=== PATIENT | male | born 1990 | race Hispanic/Latino ===

== ENCOUNTER 2017-12-05 17:32 | Emergency (ER) | payer SELFPAY ==
--- NOTE | 2017-12-05 19:18 | RAD REPORT ---
EXAM DESCRIPTION: RAD - Foot Right 3 View - 12/05/2017 6:15 pm CLINICAL HISTORY: Soft tissue swelling, possible insect bite COMPARISON: None. FINDINGS: No fracture, dislocation or periosteal reaction. No acute or destructive bone process iden tifiable. No acute or suspicious joint finding. Soft tissue swelling is present over the dorsum of the foot. No air in the soft tissues. On the later al and oblique views there is a faint 3 mm density present. This is potentially of foreign body but i s not likely from an insect bite. This is doubtful as a true foreign body can't but can be monitored IMPRESSION: Soft tissue swelling with no air in the soft tissues. Small 3 mm radiopaque density over the dorsum, possibly a foreign body.
[2017-12-05] MEDS ORDERED: CLINDAMYCIN 600MG/D5W 600 MG/50 ML BAG IV ONE (19:52)
[2017-12-05 20:02] LABS: Absolute Lymphocytes (CBC) 2.6 K/uL (0.7-4.9); Absolute Monocytes 0.8 K/uL (0.1-1.3); Absolute Neutrophil 7.5 K/uL (1.8-8.0); Basophils % 0.2 % (0-1.3); Eosinophils % 1.5 % (0-4.4); Hematocrit 41.7 % (39.6-49.0); Lymphocytes % 23.3 % (15.3-44.8); MCH 29.7 pg (27.0-35.0); MCV 88.1 fL (80-100); MPV 8.8 fL (7.6-11.3); Monocytes % 7.4 % (3.3-12.3); RBC Red Blood Cell Count 4.73 M/uL (4.33-5.43)
[2017-12-05 20:09] LABS: BUN Blood Urea Nitrogen 23 mg/dL (6-20); Bicarbonate 26 mEq/L (21-31); Glucose Level 95 mg/dL (65-120); Potassium 3.7 mEq/L (3.6-5.0); Sodium Level 137 mEq/L (135-145)
--- NOTE | 2017-12-05 20:20 | EDPHYS ---
Physician Documentation [facility] Name: Marcell Whyte Age: 27 yrs Sex: Male : 1990 Arrival Date: 12/05/2017 Time: 17:33 Bed 24 Private MD: ED Physician Rikki Lucio HPI: 12/05 19:03 This 27 yrs old Male presents to ER via Ambulatory with complaints of Foot kb Pain. 19:03 The patient presents with cellulitis of the right foot. Description: erythematous, kb swollen, warm. Onset: The symptoms/episode began/occurred 3 day(s) ago. Possible cause(s): unknown. Associated signs and symptoms: Pertinent positives: erythema, swelling, Pertinent negatives: discharge, drainage, foreign body sensation, fever, headache, nausea, shortness of breath, vomiting. Modifying factors: the symptoms are alleviated by nothing, the symptoms are aggravated by touching. Severity of symptoms: At their worst the symptoms were moderate, in the emergency department the symptoms are unchanged. The patient has not experienced similar symptoms in the past. The patient has not recently seen a physician. Pt states he thinks something bit him when he was in the yard on Sunday because his foot started swelling and getting red. States it has been getting worse since it started. Historical: - Allergies: 17:50 No Known Allergies; ch - Home Meds: 17:50 None [Active]; ch - PMHx: 17:50 None; ch - PSHx: 17:50 None; ch - Immunization history:: Adult Immunizations up to date, Last tetanus immunization: unknown, Flu vaccine is not up to date. - Social history:: Smoking status: Patient/guardian denies using tobacco. ROS: 19:00 Constitutional: Negative for fever, chills, and weight loss, Cardiovascular: Negative kb for chest pain, palpitations, and edema, Respiratory: Negative for shortness of breath, cough, wheezing, and pleuritic chest pain, Abdomen/GI: Negative for abdominal pain, nausea, vomiting, diarrhea, and constipation, MS/Extremity: Negative for injury and deformity, Neuro: Negative for headache, weakness, numbness, tingling, and seizure. 19:00 Skin: Positive for cellulitis, erythema, swelling, of the right foot. Exam: 19:02 Constitutional: This is a well developed, well nourished patient who is awake, alert, kb and in no acute distress. Head/Face: Normocephalic, atraumatic. Chest/axilla: Normal chest wall appearance and motion. Nontender with no deformity. No lesions are appreciated. Cardiovascular: Regular rate and rhythm with a normal S1 and S2. No gallops, murmurs, or rubs. Normal PMI, no JVD. No pulse deficits. Respiratory: Lungs have equal breath sounds bilaterally, clear to auscultation and percussion. No rales, rhonchi or wheezes noted. No increased work of breathing, no retractions or nasal flaring. Abdomen/GI: Soft, non-tender, with normal bowel sounds. No distension or tympany. No guarding or rebound. No evidence of tenderness throughout. MS/ Extremity: Pulses equal, no cyanosis. Neurovascular intact. Full, normal range of motion. Neuro: Awake and alert, GCS 15, oriented to person, place, time, and situation. Cranial nerves II-XII grossly intact. Motor strength 5/5 in all extremities. Sensory grossly intact. Cerebellar exam normal. Normal gait. 19:02 Skin: cellulitis, that is moderate, on the right foot. Vital Signs: 17:50 BP 121 / 74; Pulse 75; Resp 18; Temp 99.4; Pulse Ox 99% on R/A; Weight 99.79 kg; Height ch 5 ft. 11 in. (180.34 cm); Pain 6/10; 20:33 BP 105 / 75; Pulse 55; Resp 17; Temp 98.6; Pulse Ox 99% on R/A; kr2 17:50 Body Mass Index 30.68 (99.79 kg, 180.34 cm) MDM: 18:10 Patient medically screened. kb 19:02 Data reviewed: vital signs, nurses notes. Data interpreted: Pulse oximetry: on room air kb is 99 %. Interpretation: normal. 20:13 Counseling: I had a detailed discussion with the patient and/or guardian regarding: the kb historical points, exam findings, and any diagnostic results supporting the discharge/admit diagnosis, lab results, radiology results, the need for outpatient follow up, a family practitioner, to return to the emergency department if symptoms worsen or persist or if there are any questions or concerns that arise at home. 12/05 18:43 Order name: CBC with Diff; Complete Time: 20:13 kb 12/05 18:43 Order name: Basic Metabolic Panel; Complete Time: 20:13 kb 12/05 17:52 Order name: Foot Right 3 View XRAY; Complete Time: 19:19 kb 12/05 18:43 Order name: Blood Culture Adult (2) kb 12/05 18:43 Order name: IV Start; Complete Time: 19:24 kb Administered Medications: 20:07 Drug: Clindamycin 600 mg Route: IVPB; Infused Over: 30 mins; Site: right antecubital; kr2 20:30 Follow up: Response: No adverse reaction; IV Status: Completed infusion kr2 Disposition: 22:37 Co-signature as Attending Physician, Rikki Lucio MD I agree with the assessment and kdr plan of care. Disposition: 12/05/17 20:18 Discharged to Home. Impression: Cellulitis of right lower limb. - Condition is Stable. - Discharge Instructions: Cellulitis, [id number]. - Prescriptions for Clindamycin HCl 300 mg Oral Capsule - take 1 capsule by ORAL route every 6 hours for 10 days; 40 capsule. - Medication Reconciliation Form, Thank You Letter, Antibiotic Education, Prescription Opioid Use form. - Follow up: Emergency Department; When: As needed; Reason: Worsening of condition. Follow up: Private Physician; When: 2 - 3 days; Reason: Recheck today's complaints, Continuance of care, Re-evaluation by your physician. Signatures: Dispatcher [employer] EDMS Nadeen Agarwal, BALTAZAR-C [employer]NE[employer]IN S[employer]ER [employer] FINISHER-Wanda Gillette RN RN Rikki Lucio MD MD [facility] Trisha Alexander RN RN kr2 Corrections: (The following items were deleted from the chart) 20:35 20:18 12/05/2017 20:18 Discharged to Home. Impression: Cellulitis of right lower limb. kr2 Condition is Stable. Discharge Instructions: Cellulitis, [id number]. Prescriptions for Clindamycin HCl 300 mg Oral Capsule - take 1 capsule by ORAL route every 6 hours for 10 days; 40 capsule. and Forms are Medication Reconciliation Form, Thank You Letter, Antibiotic Education, Prescription Opioid Use. Follow up: Emergency Department; When: As needed; Reason: Worsening of condition. Follow up: Private Physician; When: 2 - 3 days; Reason: Recheck today's complaints, Continuance of care, Re-evaluation by your physician. kb
--- NOTE | 2017-12-05 20:20 | ER ---
Nurse's Notes [facility] Name: Marcell Whyte Age: 27 yrs Sex: Male : 1990 Arrival Date: 12/05/2017 Time: 17:33 Bed 24 Private MD: Diagnosis: Cellulitis of right lower limb Presentation: 12/05 17:49 Presenting complaint: Patient states: I think something bit me on the top of my foot on Sunday. its swollen and red and very painful, redness is going up my leg now. Transition of care: patient was not received from another setting of care. Onset of symptoms was December 03, 2017. Initial Sepsis Screen: Does the patient meet any 2 criteria? No. Patient's initial sepsis screen is negative. Does the patient have a suspected source of infection? No. Patient's initial sepsis screen is negative. Care prior to arrival: None. 17:49 Method Of Arrival: Ambulatory 17:49 Acuity: MILTON 3 Triage Assessment: 17:50 General: Appears in no apparent distress. comfortable, Behavior is calm, cooperative, ch appropriate for age. Pain: Complains of pain in dorsum of left foot Pain currently is 7 out of 10 on a pain scale. Historical: - Allergies: 17:50 No Known Allergies; - Home Meds: 17:50 None [Active]; - PMHx: 17:50 None; - PSHx: 17:50 None; - Immunization history:: Adult Immunizations up to date, Last tetanus immunization: unknown, Flu vaccine is not up to date. - Social history:: Smoking status: Patient/guardian denies using tobacco. Screenin:27 Abuse screen: Denies threats or abuse. Denies injuries from another. Nutritional kr2 screening: No deficits noted. Tuberculosis screening: No symptoms or risk factors identified. Fall Risk None identified. Assessment: 19:24 General: Appears in no apparent distress. comfortable, well groomed, well developed, kr2 well nourished, Behavior is calm, cooperative. Pain: Denies pain. Neuro: Level of Consciousness is awake, alert, obeys commands, Oriented to person, place, time, situation. Neuro: Intact. Cardiovascular: Capillary refill < 3 seconds in bilateral fingers Patient's skin is warm and dry. Respiratory: Airway is patent Respiratory effort is even, unlabored, Respiratory pattern is regular, symmetrical. GI: Abdomen is flat, non-distended. : No signs and/or symptoms were reported regarding the genitourinary system. EENT: Oral mucosa is moist. Derm: Skin is intact, is healthy with good turgor, Skin is pink, warm \T\ dry. redness and swelling to right foot. Musculoskeletal: Circulation, motion, and sensation intact. Swelling present in right foot. 20:22 Reassessment: Patient appears in no apparent distress at this time. Patient and/or kr2 family updated on plan of care and expected duration. Pain level reassessed. Patient is alert, oriented x 3, equal unlabored respirations, skin warm/dry/pink. Patient denies pain at this time. Vital Signs: 17:50 BP 121 / 74; Pulse 75; Resp 18; Temp 99.4; Pulse Ox 99% on R/A; Weight 99.79 kg; Height ch 5 ft. 11 in. (180.34 cm); Pain 6/10; 20:33 BP 105 / 75; Pulse 55; Resp 17; Temp 98.6; Pulse Ox 99% on R/A; kr2 17:50 Body Mass Index 30.68 (99.79 kg, 180.34 cm) ED Course: 17:33 Patient arrived in ED. sb2 17:50 Triage completed. ch 17:50 Arm band placed on left wrist. Patient placed in waiting room. 17:52 Nadeen Agarwal FNP-C is [facility]. kb 17:52 Rikki Lucio MD is Attending Physician. kb 18:11 X-ray completed. Patient moved to radiology via wheelchair. jb2 18:11 X-ray completed. Patient tolerated procedure well. jb2 18:12 Patient moved back from radiology. jb2 18:13 Foot Right 3 View XRAY In Process Unspecified. EDMS 19:10 Trisha Alexander, DEBBIE is Primary Nurse. kr2 19:20 Inserted saline lock: 20 gauge in right antecubital area, using aseptic technique. kr2 Blood collected. 19:20 First set of blood cultures drawn by ca. kr2 19:27 Patient has correct armband on for positive identification. Bed in low position. Call kr2 light in reach. Pulse ox on. NIBP on. Door closed. Warm blanket given. Head of bed elevated. 19:40 Second set of blood cultures drawn by me. kr2 19:50 Lab(s) recollected, by me, sent to lab. kr2 20:22 No provider procedures requiring assistance completed. IV discontinued, intact, kr2 bleeding controlled, No redness/swelling at site. Pressure dressing applied. Administered Medications: 20:07 Drug: Clindamycin 600 mg Route: IVPB; Infused Over: 30 mins; Site: right antecubital; kr2 20:30 Follow up: Response: No adverse reaction; IV Status: Completed infusion kr2 Outcome: 20:18 Discharge ordered by . kb 20:23 Discharged to home ambulatory, with friend. kr2 20:23 Condition: good 20:23 Discharge instructions given to patient, Instructed on discharge instructions, follow up and referral plans. medication usage, Demonstrated understanding of instructions, follow-up care, medications, Prescriptions given X 1. 20:35 Patient left the ED. kr2 Signatures: Dispatcher [employer] EDMS Nadeen Agarwal, MANAGER OPERATIONS-C MANAGER OPERATIONS-Wanda Gillette RN RN Guzman Padilla2 Trisha Alexander RN RN kr2 Bharti Lewis2 Corrections: (The following items were deleted from the chart) 20:22 19:24 Derm: Skin is intact, is healthy with good turgor, Skin is pink, warm \T\ dry. kr2 kr2 20:22 19:24 Musculoskeletal: Circulation, motion, and sensation intact. kr2 kr2
[2017-12-05 21:07] VITALS: O2SAT 99
[2017-12-05 21:09] VITALS: BP 105/75; TEMP 98.6
== END 2017-12-05 20:35 | disposition home or self-care (01) ==
LOC: ER 17:32
DX: L03.115 Cellulitis of right lower limb (principal)
CPT/HCPCS: 36415; 80048; 85025; 87040; 96365; 99284

== ENCOUNTER 2021-03-03 21:25 | Inpatient (IN) | payer SELFPAY ==
--- OUTSIDE RECORDS SUMMARY | 2021-03-03 21:28 | XMS REPORT | Continuity of Care Document ---
:1990 Author Organization [facility] t Address [address] [place] [address] Care Team Providers Name Role Phone Lab, Fam Pob I Attending Clinician Unavailable Problems This patient has no known problems. Allergies, Adverse Reactions, Alerts This patient has no known allergies or adverse reactions. Medications This patient has no known medications. Procedures This patient has no known procedures. Encounters Start End Encounter Admission Attending Care Care Encounter Source Date/Time Date/Time Type Type Clinicians Facility Department ID 2020-02-19 2020-02-19 Laboratory Lab, [facility] [id number] 12:59:56 13:19:56 Only Fam Pob I [facility] [id number] [place] [id number] [place] [id number] [address] Results This patient has no known results.
[2021-03-04] MEDS ORDERED: METHYLPREDNISOLONE 125 MG INJ ONE ×3 (01:25→14:50)
[2021-03-04] MEDS ORDERED: BENZONATATE 100 MG CAP PO ONE ×2 (01:25→12:57)
[2021-03-04] MEDS ORDERED: NA CHLORIDE 0.9% 1,000 ML ONE (01:26)
[2021-03-04] MEDS ORDERED: ONDANSETRON 4 MG/2 ML VIAL ONE ×2 (01:26→12:57)
[2021-03-04 01:28] LABS: Absolute Lymphocytes (CBC) 0.9 K/uL (0.7-4.9); Hematocrit 47.5 % (39.6-49.0); Lymphocytes % 8.8 % (15.3-44.8); MPV 8.6 fL (7.6-11.3)
[2021-03-04 01:30] LABS: Protime INR 1.32
[2021-03-04 01:45] LABS: ALT/SGPT 60 U/L (12-78); AST/SGOT 44 U/L (15-37); Albumin 3.3 g/dL (3.4-5.0); Alkaline Phosphatase 43 U/L (45-117); BUN Blood Urea Nitrogen 21 mg/dL (7-18); Bicarbonate 24 mmol/L (21-32); Bilirubin Direct 0.1 mg/dL (0-0.2); Bilirubin Total 0.4 mg/dL (0.2-1.0); Ferritin 1505.9 ng/mL (26-388); Glucose Level 104 mg/dL (74-106); Magnesium 2.3 mg/dL (1.8-2.4); NT PRO-BNP 22 pg/mL (<125); Potassium 4.4 mmol/L (3.5-5.1); Protein, Total 9.1 g/dL (6.4-8.2); Sodium Level 135 mmol/L (136-145); Troponin (Emerg Dept Use Only) < 0.02 ng/mL (0.0-0.045)
[2021-03-04] MEDS ORDERED: ACETAMINOPHEN 500 MG TAB ONE (01:51)
[2021-03-04 02:01] LABS: Blood Morphology Comment NOT SEEN (NOT SEEN); Platelet Estimate ADEQ
--- NOTE | 2021-03-04 02:07 | ER ---
Nurse's Notes [facility] Name: Marcell Whyte Age: 30 yrs Sex: Male : 1990 Arrival Date: 03/03/2021 Time: 21:31 Bed 30 Private MD: Diagnosis: Other viral pneumonia;Hypoxemia;SARS-associated coronavirus as the cause of diseases classified elsewhere Presentation: 03/03 22:20 Chief complaint: Patient states: Covid+ 02/23/2021. Reports SOB, SPO2 at home today was ca1 at 72%. Now at 90% at 4 LPM O2 via NC. Coronavirus screen: Client denies travel out of the [place] in the last 14 days. Client reports previous positive COVID test result. Date of collection: February 23, 2021 Staff notified of need for isolation. Ebola Screen: Patient negative for fever greater than or equal to 101.5 degrees Fahrenheit, and additional compatible Ebola Virus Disease symptoms Patient denies exposure to infectious person. Patient denies travel to an Ebola-affected area in the 21 days before illness onset. No symptoms or risks identified at this time. Initial Sepsis Screen: Does the patient meet any 2 criteria? No. Patient's initial sepsis screen is negative. Does the patient have a suspected source of infection? No. Patient's initial sepsis screen is negative. Risk Assessment: Do you want to hurt yourself or someone else? Patient reports no desire to harm self or others. Onset of symptoms was March 03, 2021. 22:20 Method Of Arrival: EMS: [facility] ca1 22:20 Acuity: MILTON 2 ca1 Triage Assessment: 03/04 01:00 Respiratory: Reports shortness of breath cough that is Onset: The symptoms/episode iw began/occurred the patient has moderate shortness of breath. Historical: - Allergies: 03/03 22:23 No Known Allergies; ca1 - PMHx: 22:23 None; ca1 - PSHx: 22:23 None; ca1 - Immunization history:: Client reports having NOT received the Covid vaccine. - Social history:: Smoking status: Patient denies any tobacco usage or history of. Screenin/06 01:32 Abuse screen: Denies threats or abuse. Denies injuries from another. Nutritional iw screening: No deficits noted. Tuberculosis screening: No symptoms or risk factors identified. 05:00 Fall Risk None identified. iw Assessment: 01:00 General: Appears uncomfortable, ill, Behavior is agitated, anxious. General: Reports iw feeling ill for fatigue for. Pain: Complains of pain in head and back. Neuro: Level of Consciousness is awake, alert, obeys commands, Oriented to person, place, time, situation, Moves all extremities. Cardiovascular: Rhythm is regular. Cardiovascular: Reports shortness of breath. Respiratory: Airway is patent Respiratory effort is labored, with nasal flaring, pursed lip, Respiratory pattern is tachypnea. Respiratory: Breath sounds are diminished bilaterally. Musculoskeletal: Range of motion: intact in all extremities. 01:31 Reassessment: pt still tachypneic, temp is 102.1, KAUSHIK Couch notified. iw 02:36 Reassessment: Patient appears in no apparent distress at this time. pt sleeping. iw 13:48 Reassessment: Sister Patience [phone]. hb Vital Signs: 03/03 22:20 BP 101 / 69; Pulse 106; Resp 20 S; Temp 99.9(TE); Pulse Ox 89% on 4 lpm NC; Weight ca1 127.01 kg (R); Height 6 ft. 0 in. (182.88 cm); Pain 0/10; 03/04 01:25 BP 120 / 76; Resp 32 S; Temp 102.1(O); Pulse Ox 91% on 15 lpm NC; iw 02:31 BP 95 / 47; Pulse 86; Resp 28 S; Pulse Ox 99% on 15 lpm NC; iw 03/03 22:20 Body Mass Index 37.97 (127.01 kg, 182.88 cm) ca1 ED Course: 03/03 21:31 Patient arrived in ED. wm 22:23 Triage completed. ca1 22:23 Arm band placed on right wrist. ca1 22:46 Chest Single View In Process Unspecified. EDMS 03/04 00:17 Khoa Ambrose PA is PHCP. cp 00:17 Isidro Suarez MD is Attending Physician. cp 01:00 Patient has correct armband on for positive identification. iw 01:10 Laura Rodriguez, RN is Primary Nurse. iw 02:00 Initial lab(s) drawn, by me, sent to lab. Inserted saline lock: 20 gauge in right iw antecubital area, using aseptic technique. 02:04 Prezas, Zane, DO is Hospitalizing Provider. cp 05:00 No provider procedures requiring assistance completed. iw 05:00 Patient admitted, IV remains in place. iw 16:40 Primary Nurse role handed off by Laura Rodriguez RN 16:40 Mayra Bowden, DEBBIE is Primary Nurse. hb 03/05 06:15 Inserted saline lock: 24 gauge in left forearm, using aseptic technique. Blood ds4 collected. Administered Medications: 03/04 01:24 Drug: SOLU-Medrol (methylPrednisoLONE) 125 mg Route: IVP; Site: right antecubital; iw 01:24 Drug: Zofran (Ondansetron) 4 mg Route: IVP; Site: right antecubital; iw 02:00 Follow up: Response: No adverse reaction iw 01:24 Drug: Tessalon Perle (benzonatate) 200 mg Route: PO; iw 01:33 Drug: Tylenol 1000 mg Route: PO; iw 02:30 Follow up: Response: No adverse reaction iw 01:40 Drug: NS 0.9% 1000 ml Route: IV; Rate: 1 bolus; Site: right antecubital; iw 02:40 Follow up: IV Status: Completed infusion iw 03:00 Drug: NS 0.9% 1000 ml Route: IV; Rate: 125 ml/hr; Site: right antecubital; iw Outcome: 02:06 Decision to Hospitalize by Provider. cp 05:00 Admitted to ER Hold. Please see [facility] for further documentation. iw 05:00 Condition: stable 05:00 Discharge instructions given to patient, Instructed on the need for admit. 03/07 11:41 Patient left the ED. iw Signatures: Dispatcher [employer] EDMS Laura Rodriguez RN RN Liam Claudio ds4 Khoa Ambrose PA PA cp Mayra Bowden RN RN Erinn Cobb RN RN [facility] Brianna Salcedo Corrections: (The following items were deleted from the chart) 03/03 22:24 22:20 Chief complaint: Patient states: Covid+ 02/23/2021. Reports SOB, SPO2 at home ca1 today was at 72%. Now at 92% at 3LPM O2 via NC ca1 22:24 22:20 Chief complaint: Patient states: Covid+ 02/23/2021. Reports SOB, SPO2 at home ca1 today was at 72%. Now at 90% at 3LPM O2 via NC ca1
--- NOTE | 2021-03-04 02:07 | EDPHYS ---
Physician Documentation [facility] Name: Marcell Whyte Age: 30 yrs Sex: Male : 1990 Arrival Date: 03/03/2021 Time: 21:31 Bed 30 Private MD: ED Physician Isidro Suarez HPI: 03/04 00:35 This 30 yrs old Male presents to ER via EMS with complaints of Breathing cp Difficulty, COVID+. 00:35 The patient has shortness of breath at rest. cp 00:35 Onset: The symptoms/episode began/occurred gradually, and became worse today. cp 00:35 Duration: The symptoms are continuous, and are steadily getting worse. Associated signs cp and symptoms: Pertinent positives: chest pain, productive cough, Pertinent negatives: diaphoresis. Severity of symptoms: in the emergency department the symptoms are unchanged despite home interventions. Historical: - Allergies: 03/03 22:23 No Known Allergies; ca1 - PMHx: 22:23 None; ca1 - PSHx: 22:23 None; ca1 - Immunization history:: Client reports having NOT received the Covid vaccine. - Social history:: Smoking status: Patient denies any tobacco usage or history of. ROS: 03/04 00:40 Constitutional: Positive for body aches, Negative for fever, poor PO intake. cp 00:40 Eyes: Negative for injury, pain, redness, and discharge. cp 00:40 ENT: Negative for drainage from ear(s), ear pain, sore throat, difficulty swallowing, difficulty handling secretions. 00:40 Cardiovascular: Positive for chest pain, Negative for edema, palpitations. 00:40 Respiratory: Positive for cough, "sounds productive", shortness of breath, at rest. Negative for wheezing. 00:40 Abdomen/GI: Negative for abdominal pain, vomiting, diarrhea, constipation. 00:40 Skin: Negative for cellulitis, rash. 00:40 Neuro: Negative for altered mental status, syncope, weakness. 00:40 All other systems are negative. Exam: 00:45 Constitutional: The patient appears alert, awake, non-diaphoretic, non-toxic, well cp developed, well nourished, obese, in obvious distress, mildly distressed. 00:45 Head/Face: Normocephalic, atraumatic. cp 00:45 Eyes: Periorbital structures: appear normal, Pupils: equal, round, and reactive to light and accomodation, Extraocular movements: intact throughout, Conjunctiva: normal, no exudate, no injection, Sclera: no appreciated abnormality, Lids and lashes: appear normal, bilaterally. 00:45 ENT: External ear(s): are unremarkable, Nose: is normal, Mouth: Lips: moist, Oral mucosa: moist, Posterior pharynx: Airway: no evidence of obstruction, patent. 00:45 Neck: ROM/movement: Meningeal signs: are not present, nuchal rigidity, is not appreciated. 00:45 Chest/axilla: Inspection: normal, Palpation: is normal, no crepitus, no tenderness. 00:45 Cardiovascular: Rate: tachycardic, Rhythm: regular, Edema: is not appreciated, JVD: is not appreciated. 00:45 Respiratory: moderate respiratory distress is noted, Respirations: labored breathing, that is moderate, shallow respirations, that is moderate, Breath sounds: decreased breath sounds, that are moderate, throughout, stridor, is not appreciated, + upper airway congestion. wheezing: is not appreciated. 00:45 Abdomen/GI: Inspection: abdomen appears normal, Palpation: abdomen is soft and non-tender, in all quadrants, rebound tenderness, is not appreciated, involuntary guarding, is not appreciated. 00:45 Back: pain, is absent, ROM is normal. 00:45 Skin: no rash present. 00:45 Neuro: Orientation: to person, place \\T\\ time. Mentation: is normal, Motor: moves all fours, strength is normal. Vital Signs: 03/03 22:20 BP 101 / 69; Pulse 106; Resp 20 S; Temp 99.9(TE); Pulse Ox 89% on 4 lpm NC; Weight ca1 127.01 kg (R); Height 6 ft. 0 in. (182.88 cm); Pain 0/10; 03/04 01:25 BP 120 / 76; Resp 32 S; Temp 102.1(O); Pulse Ox 91% on 15 lpm NC; iw 02:31 BP 95 / 47; Pulse 86; Resp 28 S; Pulse Ox 99% on 15 lpm NC; iw 03/03 22:20 Body Mass Index 37.97 (127.01 kg, 182.88 cm) ca1 MDM: 00:27 Patient medically screened. cp 01:00 Differential diagnosis: Bronchitis Myocardial Infarction pneumonia, Pneumothorax cp pulmonary edema, Pulmonary Embolism Sepsis. 02:05 Data reviewed: vital signs, nurses notes, lab test result(s), EKG, radiologic studies, cp plain films, and as a result, I will admit patient. 02:05 Test interpretation: by ED physician or midlevel provider: ECG, plain radiologic cp studies. Counseling: I had a detailed discussion with the patient and/or guardian regarding: the historical points, exam findings, and any diagnostic results supporting the discharge/admit diagnosis, lab results, radiology results, the need for further work-up and treatment in the hospital. Response to treatment: the patient's symptoms have markedly improved after treatment. 03/04 00:26 Order name: Basic Metabolic Panel 03/04 00:26 Order name: CBC with Diff; Complete Time: 02:03 cp 03/04 01:52 Interpretation: Normal except: ALIE% 87.5; LYM% 8.8; NEUT A 8.8. cp 03/04 00:26 Order name: LFT's; Complete Time: 01:46 cp 03/04 01:52 Interpretation: Normal except: AST 44; ALK 43; TP 9.1; ALB 3.3; GLOB 5.8; A/G 0.6. cp 03/04 00:26 Order name: Magnesium; Complete Time: 01:46 cp 03/04 00:26 Order name: NT PRO-BNP; Complete Time: 01:46 cp 03/04 00:26 Order name: PT-INR; Complete Time: 01:38 cp 03/04 01:53 Interpretation: Abnormal: INR <p>1.32</p>. cp 03/04 00:26 Order name: Troponin (emerg Dept Use Only); Complete Time: 01:46 cp 03/04 00:26 Order name: Ferritin; Complete Time: 01:46 cp 03/04 01:53 Interpretation: Abnormal: SWEETIE 1505.9. cp 03/04 00:26 Order name: CRP; Complete Time: 01:46 cp 03/04 01:53 Interpretation: Abnormal: C-REACTIVE PROT 89.20. cp 03/04 00:27 Order name: Basic Metabolic Panel; Complete Time: 01:46 EDMS 03/04 01:53 Interpretation: Normal except: NA 135; BUN 21; CRE 1.52; GFR 54. cp 08/ 01:35 Order name: Manual Differential; Complete Time: 02:03 EDMS 03/04 02:03 Interpretation: Normal except: BANDS [F] 6. cp / 04:04 Order name: Urine Dipstick-Ancillary EDMS / 05:15 Order name: CBC with Automated Diff EDMS 03/05 05:54 Order name: Urinalysis EDMS 03/05 06:41 Order name: Comprehensive Metabolic Panel EDMS 03/05 06:41 Order name: C-Reactive Protein EDMS 03/05 06:41 Order name: Magnesium EDMS 03/05 06:41 Order name: Ferritin EDMS 03/05 08:05 Order name: Glucose, Ancillary Testing EDMS 03/06 06:09 Order name: CBC with Automated Diff EDMS 03/06 06:15 Order name: Comprehensive Metabolic Panel EDMS 03/06 06:15 Order name: C-Reactive Protein EDMS 03/06 06:15 Order name: T4 Free EDMS 03/06 06:15 Order name: Magnesium EDMS 03/06 06:15 Order name: Thyroid Stimulating Hormone EDMS 03/06 06:15 Order name: Ferritin EDMS 03/06 06:52 Order name: Hemoglobin A1c EDMS 03/06 07:46 Order name: Urine Culture EDMS 03/07 05:39 Order name: CBC with Automated Diff EDMS 03/07 05:51 Order name: Comprehensive Metabolic Panel EDMS 03/03 22:41 Order name: Chest Single View EDMS 03/04 00:26 Order name: EKG; Complete Time: 00:27 cp 03/04 00:26 Order name: Cardiac monitoring; Complete Time: 09:30 cp 03/04 00:26 Order name: EKG - Nurse/Tech; Complete Time: 09:30 cp / 00:26 Order name: IV Saline Lock; Complete Time: 01:10 cp / 00:26 Order name: Labs collected and sent; Complete Time: 01:10 cp 03/04 00:26 Order name: O2 Per Protocol; Complete Time: 09:30 cp / 00:26 Order name: O2 Sat Monitoring; Complete Time: 09:30 cp 03/05 08:49 Order name: RAD EDMS 03/06 07:52 Order name: RAD EDMS 03/07 05:51 Order name: C-Reactive Protein EDMS 03/07 05:51 Order name: Magnesium EDMS 03/07 05:51 Order name: Ferritin EDMS Administered Medications: 01:24 Drug: SOLU-Medrol (methylPrednisoLONE) 125 mg Route: IVP; Site: right antecubital; iw 01:24 Drug: Zofran (Ondansetron) 4 mg Route: IVP; Site: right antecubital; iw 02:00 Follow up: Response: No adverse reaction iw 01:24 Drug: Tessalon Perle (benzonatate) 200 mg Route: PO; iw 01:33 Drug: Tylenol 1000 mg Route: PO; iw 02:30 Follow up: Response: No adverse reaction iw 01:40 Drug: NS 0.9% 1000 ml Route: IV; Rate: 1 bolus; Site: right antecubital; iw 02:40 Follow up: IV Status: Completed infusion iw 03:00 Drug: NS 0.9% 1000 ml Route: IV; Rate: 125 ml/hr; Site: right antecubital; iw Disposition Summary: 03/04/21 02:06 Hospitalization Ordered Hospitalization Status: Inpatient Admission cp Provider: Zane Ugarte cp Condition: Fair cp Problem: new cp Symptoms: have improved cp Bed/Room Type: Standard cp Location: Telemetry/MedSurg (Inpatient)(03/07/21 07:26) ja Room Assignment: 413(03/07/21 07:26) ja Diagnosis - Other viral pneumonia cp - Hypoxemia cp - SARS-associated coronavirus as the cause of diseases classified elsewhere cp Forms: - Medication Reconciliation Form cp - SBAR form cp Addendum: 03/11/2021 19:17 Co-signature as Attending Physician, Isidro Suarez MD. [facility] Signatures: Dispatcher [employer] EDRI Laura Rodriguez RN RN iw Shreyas Petersen, INSTRUMENTATION DESIGNER-C INSTRUMENTATION DESIGNER-Cla1 Khoa Ambrose PA PA cp Michelle Adhikari RN RN cg Aguilar, Jose, RN RN ja1 Acob, Cheryl, RN RN [facility] [place] Isidro Suarez MD MD [id number] Corrections: (The following items were deleted from the chart) 03/03 22:41 22:25 Chest Pa And Lat (2 Views)+RAD.RAD.BRZ ordered. [facility] 03/04 02:10 01:29 Chest For PE Angio+CT.RAD.BRZ ordered. EDMS EDMS 03:52 02:06 Telemetry/MedSurg (Inpatient) cp cg 03:52 02:06 cp cg 03/07 07:13 08 03:52 [facility] ER HOLD cg ja1 03/07 07:13 0806 03:52 ERHOLD- cg ja1 03/07 07:20 07:13 Telemetry/MedSurg (Inpatient) ja1 ja1 07:20 07:13 411 ja1 ja1 07:26 07:20 [facility] ER HOLD ja1 ja1 07:26 07:20 ja1 ja1
--- NOTE | 2021-03-04 02:57 | P.HP ---
Certification for Inpatient Patient admitted to: Inpatient With expected LOS: >2 Midnights Patient will require the following post-hospital care: None Practitioner: I am a practitioner with admitting privileges, knowledge of patient current condition, hospital course, and medical plan of care. Services: Services provided to patient in accordance with Admission requirements found in Title 42 Section 412.3 of the Code of Federal Regulations Patient History Date of Service: 03/04/21 Primary Care Provider: None Reason for admission: COVID-19 pneumonia History of Present Illness: 30-year-old male with no significant past medical history aside from obesity presents emergency department for shortness of breath. Patient reports testing positive for Covid on 02/23/2021, patient is not vaccinated. Patient was evaluated in the emergency department found to be significantly hypoxic on room air with saturations in the 70s, patient currently on high flow nasal cannula. Labs significant for sodium 135 creatinine 1.52 GFR 54 BUN 21 ferritin 1505 AST 44 alk phos 43 C-reactive protein 89.2 white blood cell count 10.10 chest x-ray demonstrating bilateral pneumonia consistent with COVID-19 pattern. ED provider wishes to admit for further evaluation and management. 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 moist/pink, EOMI, Sclerae nonicteric Neck: Supple, 2+ carotid pulse no bruit, No LAD, Without JVD or thyroid abnormality Respiratory: Diminished, Other (Tachypnea, dyspnea) Cardiovascular: Regular rate/rhythm, Normal S1 S2 Gastrointestinal: Normal bowel sounds, No tenderness Musculoskeletal: No tenderness Integumentary: No rashes Neurological: Normal gait, Normal speech, Normal strength at 5/5 x4 extr, Normal tone, Normal affect Lymphatics: No axilla or inguinal lymphadenopathy - Studies Laboratory Data (last 24 hrs) 03/04/21 01:07: PT 15.2 H, INR 1.32 03/04/21 01:07: WBC 10.10, Hgb 16.0, Hct 47.5, Plt Count 299 03/04/21 01:07: Sodium 135 L, Potassium 4.4, BUN 21 H, Creatinine 1.52 H, Glucose 104, Magnesium 2.3, Total Bilirubin 0.4, AST 44 H, ALT 60, Alkaline Phosphatase 43 L Assessment and Plan - Plan Assessment: Acute hypoxic respiratory failure secondary to COVID-19 pneumonia complicated with obesity Acute kidney injury Plan: Acute hypoxic respiratory failure secondary to COVID-19 pneumonia complicated with obesity: Continue with IV steroids, oral supplements, supplemental oxygen as needed, daily room air saturations, ivermectin, pulmonology consult in place. Anticipate clinical improvement over the course of the next 48 to 72 hours. Acute kidney injury: Patient given bolus in the emergency department, will reevaluate renal function in the morning, patient may require more fluids. DVT PPX: Lovenox Code status: Full Discharge Plan: Home Plan to discharge in: Greater than 2 days - Advance Directives Does patient have a Living Will: No Does patient have a Durable POA for Healthcare: No - Code Status/Comfort Care Code Status Assessed: Yes (Full code) Critical Care: No Time Spent Managing Pts Care (In Minutes): 55
[2021-03-04] MEDS ORDERED: ONDANSETRON 4 MG/2 ML VIAL IV PRN (04:23)
[2021-03-04] MEDS ORDERED: MELATONIN 5 MG TABLET PO PRN (04:23)
[2021-03-04] MEDS ORDERED: ACETAMINOPHEN 500 MG TAB PO PRN (04:23)
[2021-03-04 05:53] VITALS: BMI 38.0
--- NOTE | 2021-03-04 06:30 | P.PN ---
Subjective Date of Service: 03/04/21 Primary Care Provider: None Chief Complaint: COVID-19 pneumonia Subjective: Other (Patient on high flow oxygen.) Physical Examination - Studies Laboratory Data (last 24 hrs) 03/04/21 01:07: PT 15.2 H, INR 1.32 03/04/21 01:07: WBC 10.10, Hgb 16.0, Hct 47.5, Plt Count 299 03/04/21 01:07: Sodium 135 L, Potassium 4.4, BUN 21 H, Creatinine 1.52 H, Glucose 104, Magnesium 2.3, Total Bilirubin 0.4, AST 44 H, ALT 60, Alkaline Phosphatase 43 L Assessment & Plan Discharge Plan: Home Plan to discharge in: Greater than 2 days Physician Review Additional Text: COVID: Positive Chest x-ray: COMPARISON: 2018 FINDINGS: Moderate bilateral pulmonary opacities. Heart is normal size IMPRESSION: Moderate bilateral pulmonary opacities likely pneumonia Physical exam: General: Alert, In no apparent distress, Obese HEENT: Atraumatic, PERRLA, Mucous membr. moist/pink, EOMI, Sclerae nonicteric Neck: Supple, 2+ carotid pulse no bruit, No LAD, Without JVD or thyroid abnormality Respiratory: Patient on high flow oxygen. Diminished breath sounds. Cardiovascular: Regular rate/rhythm, Normal S1 S2 Gastrointestinal: Normal bowel sounds, No tenderness Musculoskeletal: No tenderness Integumentary: No rashes Neurological: Normal gait, Normal speech, Normal strength at 5/5 x4 extr, Normal tone, Normal affect Lymphatics: No axilla or inguinal lymphadenopathy Impression: Acute hypoxic respiratory failure secondary to COVID-19 pneumonia complicated with obesity Acute kidney injury Plan: Acute hypoxic respiratory failure secondary to COVID-19 pneumonia complicated with obesity: Continue to wean off oxygen. Continue IV steroids, supplementation. Will start baricitinib. Will continue to monitor closely. Pulmonology consulted. Await recommendations. Respiratory to continue to wean off oxygen. Encourage ambulation, incentive spirometer and proning. Anticipate improvement over the next 2 to 3 days. Acute kidney injury: We will monitor renal function. Encourage oral intake. DVT PPX: Xarelto Code status: Full Discharge Plan: Home Time Spent Managing Pts Care (In Minutes): 55
--- NOTE | 2021-03-04 08:30 | RAD REPORT ---
EXAM DESCRIPTION: [facility] Single View03/03/2021 10:46 pm CLINICAL HISTORY: Cough COMPARISON: 2018 FINDINGS: Moderate bilateral pulmonary opacities. Heart is normal size IMPRESSION: Moderate bilateral pulmonary opacities likely pneumonia
[2021-03-04] MEDS: ASPIRIN EC 81 MG TAB PO SCH (08:38)
[2021-03-04] MEDS: THIAMINE HCL 100 MG TABLET PO SCH (08:38)
[2021-03-04] MEDS: ZINC SULFATE 220 MG CAP PO SCH (08:38)
[2021-03-04] MEDS: ASCORBIC ACID 500 MG TABLET PO SCH ×4 (08:38→21:00)
[2021-03-04] MEDS: VITAMIN D 1000 UNIT TAB PO SCH (08:38)
[2021-03-04] MEDS: IVERMECTIN 3 MG TABLET PO SCH (08:38)
[2021-03-04] MEDS: METHYLPREDNISOLONE 40 MG INJ IV SCH ×3 (08:38→21:00)
[2021-03-04] MEDS ORDERED: ZINC SULFATE 220 MG CAP ONE (08:48)
[2021-03-04] MEDS ORDERED: VITAMIN D 1000 UNIT TAB ONE (08:48)
[2021-03-04] MEDS ORDERED: THIAMINE HCL 100 MG TABLET ONE (08:48)
[2021-03-04] MEDS ORDERED: ASPIRIN EC 81 MG TAB PO ONE (08:48)
[2021-03-04] MEDS ORDERED: ASCORBIC ACID 500 MG TABLET ONE ×4 (08:49→21:15)
[2021-03-04] MEDS ORDERED: ENOXAPARIN 40 MG/0.4 ML SQ ONE (08:49)
[2021-03-04] MEDS ORDERED: ENOXAPARIN 40 MG/0.4 ML SQ SCH (09:00)
--- NOTE | 2021-03-04 12:15 | P.CNS ---
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 - Social History Alcohol use: No CD- Drugs: No Caffeine use: Yes Place of Residence: Home Review of Systems General: Weakness Respiratory: Shortness of Breath Physical Examination Temp Pulse Resp BP Pulse Ox 96.9 F 58 27 H 107/73 96 03/04/21 08:00 03/04/21 08:00 03/04/21 08:00 03/04/21 08:00 03/04/21 08:00 General: Alert, In no apparent distress, Oriented x3, Cooperative Laboratory Data (last 24 hrs) 03/04/21 01:07: PT 15.2 H, INR 1.32 03/04/21 01:07: WBC 10.10, Hgb 16.0, Hct 47.5, Plt Count 299 03/04/21 01:07: Sodium 135 L, Potassium 4.4, BUN 21 H, Creatinine 1.52 H, Glucose 104, Magnesium 2.3, Total Bilirubin 0.4, AST 44 H, ALT 60, Alkaline Phosphatase 43 L - Problems (1) Pneumonia due to COVID-19 virus Current Visit: Yes Status: Acute Plan: AGe 29 AW resp from COVID/ Labs reviewed. Ext penumonia/ MEds and labs rev/ Barcitinib/PO xarelto
[2021-03-04] MEDS: BARICITINIB 2 MG TABLET PO SCH (13:00)
[2021-03-04] MEDS: RIVAROXABAN 20 MG TABLET PO SCH (15:09)
[2021-03-04] MEDS ORDERED: METHYLPREDNISOLONE 40 MG INJ ONE (21:15)
[2021-03-05 04:04] LABS: Urine Blood Negative (Negative); Urine Glucose Negative (Negative); Urine Protein 2+ (Negative); Urine Specific Gravity >=1.030 (1.005-1.030)
[2021-03-05 05:11] LABS: Urine Appearance CLOUDY (Clear); Urine Bilirubin NEGATIVE (Negative); Urine Blood NEGATIVE (Negative); Urine Color YELLOW (Yellow); Urine Glucose NEGATIVE (Negative); Urine Protein 1+ (Negative); Urine Specific Gravity 1.025 (1.005-1.030); Urine Urobilinogen 0.2 mg/dL (0.2-1.0)
[2021-03-05 05:13] LABS: Absolute Lymphocytes (CBC) 0.7 K/uL (0.7-4.9); Basophils % 0.3 % (0-1.3); Hematocrit 37.6 % (39.6-49.0); Lymphocytes % 7.1 % (15.3-44.8); MPV 8.3 fL (7.6-11.3); RBC Red Blood Cell Count 4.17 M/uL (4.33-5.43)
[2021-03-05 05:53] LABS: Urine Microscopic Reflex ORDER UMIC; Urine RBC <5 /HPF (NONE SEEN)
[2021-03-05 05:54] LABS: Urine Bacteria >50 /HPF (NONE SEEN); Urine Mucus 2+ /HPF (NONE SEEN)
--- NOTE | 2021-03-05 06:28 | P.PN ---
Subjective Date of Service: 03/05/21 Primary Care Provider: None Chief Complaint: COVID-19 pneumonia Subjective: Other (Patient remained stable on 15 L.) Physical Examination - Vital Signs Temperature: 99.1 F Blood Pressure: 111/55 Pulse: 56 Respirations: 22 Pulse Ox (%): 94 Assessment & Plan Discharge Plan: Home Plan to discharge in: Greater than 2 days Physician Review Additional Text: COVID: Positive Initial Chest x-ray: COMPARISON: 2017 FINDINGS: Moderate bilateral pulmonary opacities. Heart is normal size IMPRESSION: Moderate bilateral pulmonary opacities likely pneumonia Follow up CXR: COMPARISON: Chest Single View dated 03/03/2021; Chest Single View dated 08/06/2017 FINDINGS: Moderate to severe widespread bilateral airspace disease again identified. The heart size is within normal limits.No acute osseous abnormality. No significant pleural effusions or pneumothorax. IMPRESSION: Similar moderate to severe widespread bilateral airspace disease that may reflect multifocal pneumonia. Physical exam: General: Alert, In no apparent distress, Obese HEENT: Atraumatic, PERRLA, Mucous membr. moist/pink, EOMI, Sclerae nonicteric Neck: Supple, 2+ carotid pulse no bruit, No LAD, Without JVD or thyroid abnormality Respiratory: Minutes bilateral. Currently on 15 L Cardiovascular: Regular rate/rhythm, Normal S1 S2 Gastrointestinal: Normal bowel sounds, No tenderness Musculoskeletal: No tenderness Integumentary: No rashes Neurological: Normal gait, Normal speech, Normal strength at 5/5 x4 extr, Normal tone, Normal affect Lymphatics: No axilla or inguinal lymphadenopathy Impression: Acute hypoxic respiratory failure secondary to COVID-19 pneumonia, unvaccinated Acute kidney injury Obesity, BMI 38 Plan: Acute hypoxic respiratory failure secondary to COVID-19 pneumonia, unvaccinated: Patient remains on high flow oxygen. Currently on 15 L. Continue with IV steroids, supplements. Continue with baricitinib. Will monitor CRP and ferritin closely. Monitor liver function test while on baricitinib. Continue with pu lmonology recommendations. Encourage incentive spirometer, proning, and ambulation. Respiratory to continue to wean off. Will monitor closely. Anticipate improvement over the next 3 to 5 days. Acute kidney injury: Overall stable. Encourage oral intake. Obesity, BMI 38: Continue lifestyle modification education DVT PPX: Xarelto Code status: Full Discharge Plan: Home Time Spent Managing Pts Care (In Minutes): 55
[2021-03-05 06:37] LABS: Albumin 2.6 g/dL (3.4-5.0); Bilirubin Total 0.4 mg/dL (0.2-1.0); C-Reactive Protein 93.1 mg/L (<3.00); Ferritin 1780.3 ng/mL (26-388); Protein, Total 7.7 g/dL (6.4-8.2)
[2021-03-05 06:38] LABS: Magnesium 2.8 mg/dL (1.8-2.4); Potassium 4.9 mmol/L (3.5-5.1)
[2021-03-05] MEDS ORDERED: ZINC SULFATE 220 MG CAP ONE (08:38)
[2021-03-05] MEDS ORDERED: ASPIRIN EC 81 MG TAB PO ONE (08:38)
[2021-03-05] MEDS ORDERED: THIAMINE HCL 100 MG TABLET ONE (08:38)
[2021-03-05] MEDS ORDERED: METHYLPREDNISOLONE 125 MG INJ ONE ×2 (08:38→14:34)
[2021-03-05] MEDS ORDERED: VITAMIN D 1000 UNIT TAB ONE (08:39)
--- NOTE | 2021-03-05 08:49 | RAD REPORT ---
EXAM DESCRIPTION: RAD - Chest Single View - 03/05/2021 6:39 am CLINICAL HISTORY: Follow-up Covid COMPARISON: Chest Single View dated 03/03/2021; Chest Single View dated 08/06/2017 FINDINGS: Moderate to severe widespread bilateral airspace disease again identified. The heart size is within normal limits.No acute osseous abnormality. No significant pleural effusions or pneumothora x. IMPRESSION: Similar moderate to severe widespread bilateral airspace disease that may reflect multif ocal pneumonia.
[2021-03-05] MEDS: RIVAROXABAN 20 MG TABLET PO SCH (09:00)
[2021-03-05] MEDS: THIAMINE HCL 100 MG TABLET PO SCH (09:00)
[2021-03-05] MEDS: METHYLPREDNISOLONE 40 MG INJ IV SCH ×3 (09:00→20:52)
[2021-03-05] MEDS: VITAMIN D 1000 UNIT TAB PO SCH (09:00)
[2021-03-05] MEDS: ASPIRIN EC 81 MG TAB PO SCH (09:00)
[2021-03-05] MEDS: BARICITINIB 2 MG TABLET PO SCH (09:00)
[2021-03-05] MEDS: ZINC SULFATE 220 MG CAP PO SCH (09:00)
[2021-03-05] MEDS: ASCORBIC ACID 500 MG TABLET PO SCH ×4 (09:00→20:52)
[2021-03-05] MEDS ORDERED: ASCORBIC ACID 500 MG TABLET ONE ×4 (10:22→20:17)
[2021-03-05] MEDS: BENZONATATE 100 MG CAP PO PRN ×2 (12:57→22:12)
[2021-03-05] MEDS ORDERED: BENZONATATE 100 MG CAP PO ONE ×2 (13:13→22:25)
--- NOTE | 2021-03-05 14:38 | P.PN ---
Subjective Date of Service: 03/05/21 Primary Care Provider: None Chief Complaint: COVID-19 pneumonia Subjective: Worsening (o2 requirement has increased) Review of Systems General: Weakness Respiratory: Shortness of Breath Physical Examination - Vital Signs Temperature: 98.3 F Blood Pressure: 115/64 Pulse: 53 Respirations: 31 Pulse Ox (%): 93 - Physical Exam General: Alert, In no apparent distress, Cooperative Assessment & Plan - Problems (Diagnosis) (1) Pneumonia due to COVID-19 virus Current Visit: Yes Status: Acute Plan: O2 requirement has increased/ labs and Meds reviewed/ Vs stable
[2021-03-05] MEDS ORDERED: METHYLPREDNISOLONE 40 MG INJ ONE (20:17)
[2021-03-05] MEDS ORDERED: FAMOTIDINE 20 MG/2 ML VIAL IV ONE (20:17)
[2021-03-05] MEDS: FAMOTIDINE 20 MG TAB PO SCH (20:52)
[2021-03-06] MEDS ORDERED: LORazepam 2 MG/ML VIAL IV ONE (01:23)
[2021-03-06] MEDS ORDERED: LORazepam 2 MG/ML VIAL ONE (01:35)
[2021-03-06 05:44] LABS: Absolute Lymphocytes (CBC) 0.6 K/uL (0.7-4.9); Basophils % 0.1 % (0-1.3); Hematocrit 41.6 % (39.6-49.0); Lymphocytes % 4.7 % (15.3-44.8); MPV 8.5 fL (7.6-11.3); RBC Red Blood Cell Count 4.61 M/uL (4.33-5.43)
[2021-03-06 06:15] LABS: ALT/SGPT 62 U/L (12-78); AST/SGOT 30 U/L (15-37); Albumin 2.7 g/dL (3.4-5.0); Alkaline Phosphatase 35 U/L (45-117); BUN Blood Urea Nitrogen 32 mg/dL (7-18); Bicarbonate 26 mmol/L (21-32); Bilirubin Total 0.6 mg/dL (0.2-1.0); Ferritin 1525.9 ng/mL (26-388); Glucose Level 164 mg/dL (74-106); Magnesium 2.9 mg/dL (1.8-2.4); Potassium 4.8 mmol/L (3.5-5.1); Protein, Total 7.7 g/dL (6.4-8.2); Sodium Level 140 mmol/L (136-145); Thyroid Stimulating Hormone 0.378 uIU/mL (0.360-3.740)
--- NOTE | 2021-03-06 06:35 | P.PN ---
Subjective Date of Service: 03/06/21 Primary Care Provider: None Chief Complaint: COVID-19 pneumonia Subjective: Other (Patient clinically improved. Currently on 15 L.) Physical Examination - Vital Signs Temperature: 97.6 F Blood Pressure: 119/69 Pulse: 52 Respirations: 21 Pulse Ox (%): 98 Assessment & Plan Discharge Plan: Home Plan to discharge in: 72 Hours Physician Review Additional Text: COVID: Positive Initial Chest x-ray: COMPARISON: 2017 FINDINGS: Moderate bilateral pulmonary opacities. Heart is normal size IMPRESSION: Moderate bilateral pulmonary opacities likely pneumonia Follow up CXR: COMPARISON: Chest Single View dated 03/05/2021; Chest Single View dated 03/03/2021; Chest Single View dated 08/06/2017 FINDINGS: Widespread bilateral airspace disease is unchanged since yesterday The heart size is within normal limits.No acute osseous abnormality. No significant pleural effusions or pneumothorax. IMPRESSION: No change in the widespread airspace disease compared with 03/05/2021. Physical exam: General: Alert, In no apparent distress, Obese HEENT: Atraumatic, PERRLA, Mucous membr. moist/pink, EOMI, Sclerae nonicteric Neck: Supple, 2+ carotid pulse no bruit, No LAD, Without JVD or thyroid abnormality Respiratory: No significant respiratory distress. Currently on 15 L. Cardiovascular: Regular rate/rhythm, Normal S1 S2 Gastrointestinal: Normal bowel sounds, No tenderness Musculoskeletal: No tenderness Integumentary: No rashes Neurological: Normal gait, Normal speech, Normal strength at 5/5 x4 extr, Normal tone, Normal affect Lymphatics: No axilla or inguinal lymphadenopathy Impression: Acute hypoxic respiratory failure secondary to COVID-19 pneumonia, unvaccinated Acute kidney injury Hyperglycemia related to new diabetes mellitus type 2 Obesity, BMI 38 Plan: Acute hypoxic respiratory failure secondary to COVID-19 pneumonia, unvaccinated: Clinically improved. Currently on 15 L per nasal cannula. Continue IV steroids, supplementation and baricitinib. Continue to monitor CRP and ferritin which have improved. Case discussed with pulmonology. Continue with recommendations. Encourage incentive spirometer, proning, and ambulation. Respiratory to continue to wean off to maintain sats above 93%. Anticipate continued improvement. I will turn to service over to the hospitalist team tomorrow. I will go plan of care with him. Acute kidney injury: Overall stable. Encourage oral intake. Hyperglycemia related to new diabetes mellitus type 2: Hemoglobin A1c 6.5. Patient with new onset diabetes. Will start Metformin daily. Will monitor Accu-Cheks. Lifestyle modification education provided. Obesity, BMI 38: Continue lifestyle modification education DVT PPX: Xarelto Code status: Full Discharge Plan: Home Time Spent Managing Pts Care (In Minutes): 55
--- NOTE | 2021-03-06 07:51 | RAD REPORT ---
EXAM DESCRIPTION: RAD - Chest Single View - 03/06/2021 7:25 am CLINICAL HISTORY: Follow-up Covid COMPARISON: Chest Single View dated 03/05/2021; Chest Single View dated 03/03/2021; Chest Single View da keke 08/06/2017 FINDINGS: Widespread bilateral airspace disease is unchanged since yesterday The heart size is withi n normal limits.No acute osseous abnormality. No significant pleural effusions or pneumothorax. IMPRESSION: No change in the widespread airspace disease compared with 03/05/2021.
[2021-03-06] MEDS: ASCORBIC ACID 500 MG TABLET PO SCH ×4 (09:00→21:52)
[2021-03-06] MEDS: ASPIRIN EC 81 MG TAB PO SCH (10:22)
[2021-03-06] MEDS: THIAMINE HCL 100 MG TABLET PO SCH (10:23)
[2021-03-06] MEDS: VITAMIN D 1000 UNIT TAB PO SCH (10:23)
[2021-03-06] MEDS: FAMOTIDINE 20 MG TAB PO SCH ×2 (10:23→21:52)
[2021-03-06] MEDS: BARICITINIB 2 MG TABLET PO SCH (10:23)
[2021-03-06] MEDS: ZINC SULFATE 220 MG CAP PO SCH (10:23)
[2021-03-06] MEDS: METHYLPREDNISOLONE 40 MG INJ IV SCH ×3 (10:24→21:52)
[2021-03-06] MEDS: IVERMECTIN 3 MG TABLET PO SCH (10:24)
[2021-03-06] MEDS: RIVAROXABAN 20 MG TABLET PO SCH (10:24)
[2021-03-06] MEDS ORDERED: ASCORBIC ACID 500 MG TABLET ONE ×4 (10:40→22:13)
[2021-03-06] MEDS ORDERED: METHYLPREDNISOLONE 40 MG INJ ONE ×2 (10:41→13:55)
[2021-03-06] MEDS ORDERED: FAMOTIDINE 20 MG TAB ONE ×2 (10:41→22:13)
[2021-03-06] MEDS ORDERED: ZINC SULFATE 220 MG CAP ONE (10:41)
[2021-03-06] MEDS ORDERED: THIAMINE HCL 100 MG TABLET ONE (10:41)
[2021-03-06] MEDS ORDERED: VITAMIN D 1000 UNIT TAB ONE (10:41)
[2021-03-06] MEDS ORDERED: ASPIRIN EC 81 MG TAB PO ONE (10:41)
--- NOTE | 2021-03-06 12:45 | P.PN ---
Subjective Date of Service: 03/06/21 Primary Care Provider: None Chief Complaint: COVID-19 pneumonia Subjective: Improving (Doign Better O2 improving) Review of Systems Respiratory: Shortness of Breath Physical Examination - Vital Signs Temperature: 97.6 F Blood Pressure: 119/69 Pulse: 52 Respirations: 21 Pulse Ox (%): 98 - Physical Exam General: Alert, In no apparent distress, Cooperative Assessment & Plan - Problems (Diagnosis) (1) Pneumonia due to COVID-19 virus Current Visit: Yes Status: Acute Plan: Improving wean down on O2/labs reviewed
[2021-03-06] MEDS: BENZONATATE 100 MG CAP PO PRN (15:47)
[2021-03-06] MEDS ORDERED: BENZONATATE 100 MG CAP PO ONE (16:09)
[2021-03-06] MEDS ORDERED: METHYLPREDNISOLONE 125 MG INJ ONE (22:13)
[2021-03-07 05:27] LABS: Absolute Lymphocytes (CBC) 0.4 K/uL (0.7-4.9); Basophils % 0.1 % (0-1.3); Hematocrit 40.6 % (39.6-49.0); Lymphocytes % 4.7 % (15.3-44.8); MPV 8.3 fL (7.6-11.3); RBC Red Blood Cell Count 4.45 M/uL (4.33-5.43)
[2021-03-07 05:50] LABS: ALT/SGPT 89 U/L (12-78); AST/SGOT 38 U/L (15-37); Albumin 2.7 g/dL (3.4-5.0); Alkaline Phosphatase 34 U/L (45-117); BUN Blood Urea Nitrogen 30 mg/dL (7-18); Bicarbonate 28 mmol/L (21-32); Bilirubin Total 0.7 mg/dL (0.2-1.0); Ferritin 1193.5 ng/mL (26-388); Glucose Level 165 mg/dL (74-106); Magnesium 2.8 mg/dL (1.8-2.4); Potassium 4.7 mmol/L (3.5-5.1); Protein, Total 7.4 g/dL (6.4-8.2); Sodium Level 140 mmol/L (136-145)
[2021-03-07] MEDS ORDERED: METFORMIN HCL 500 MG TAB ONE (08:01)
[2021-03-07] MEDS ORDERED: ZINC SULFATE 220 MG CAP ONE (08:01)
[2021-03-07] MEDS ORDERED: ASPIRIN EC 81 MG TAB PO ONE (08:01)
[2021-03-07] MEDS ORDERED: VITAMIN D 1000 UNIT TAB ONE (08:01)
[2021-03-07] MEDS ORDERED: FAMOTIDINE 20 MG TAB ONE (08:01)
[2021-03-07] MEDS ORDERED: THIAMINE HCL 100 MG TABLET ONE (08:01)
[2021-03-07] MEDS ORDERED: ASCORBIC ACID 500 MG TABLET ONE ×2 (08:01→10:48)
[2021-03-07] MEDS: THIAMINE HCL 100 MG TABLET PO SCH (09:12)
[2021-03-07] MEDS: METFORMIN HCL 500 MG TAB PO SCH (09:12)
[2021-03-07] MEDS: ZINC SULFATE 220 MG CAP PO SCH (09:12)
[2021-03-07] MEDS: ASPIRIN EC 81 MG TAB PO SCH (09:12)
[2021-03-07] MEDS: VITAMIN D 1000 UNIT TAB PO SCH (09:12)
[2021-03-07] MEDS: ASCORBIC ACID 500 MG TABLET PO SCH ×4 (09:12→20:35)
[2021-03-07] MEDS: RIVAROXABAN 20 MG TABLET PO SCH (09:12)
[2021-03-07] MEDS: BARICITINIB 2 MG TABLET PO SCH (09:12)
[2021-03-07] MEDS: FAMOTIDINE 20 MG TAB PO SCH ×2 (09:12→20:34)
[2021-03-07] MEDS: METHYLPREDNISOLONE 40 MG INJ IV SCH ×2 (09:29→13:07)
[2021-03-07] MEDS ORDERED: METHYLPREDNISOLONE 40 MG INJ ONE ×2 (09:51→10:48)
[2021-03-07] MEDS: BENZONATATE 100 MG CAP PO PRN (09:59)
[2021-03-07] MEDS ORDERED: BENZONATATE 100 MG CAP PO ONE (10:20)
[2021-03-07] MEDS: METHYLPREDNISOLONE 125 MG INJ IV SCH ×2 (14:00→20:34)
--- NOTE | 2021-03-07 20:49 | P.PN ---
Subjective Date of Service: 03/07/21 Primary Care Provider: None Chief Complaint: COVID-19 pneumonia Subjective: Improving (Doign well on 5 l NC O2) Review of Systems Respiratory: Shortness of Breath Physical Examination - Vital Signs Temperature: 97 F Blood Pressure: 141/70 Pulse: 63 Respirations: 16 Pulse Ox (%): 92 - Physical Exam General: Alert, In no apparent distress, Oriented x3, Cooperative Assessment & Plan - Problems (Diagnosis) (1) Pneumonia due to COVID-19 virus Current Visit: Yes Status: Acute Plan: Doign well poss DC home am
[2021-03-08] MEDS: BENZONATATE 100 MG CAP PO PRN (02:35)
[2021-03-08 06:38] LABS: Absolute Lymphocytes (CBC) 0.4 K/uL (0.7-4.9); Basophils % 0.1 % (0-1.3); Hematocrit 41.1 % (39.6-49.0); Lymphocytes % 4.5 % (15.3-44.8); MPV 8.5 fL (7.6-11.3)
[2021-03-08 06:52] LABS: ALT/SGPT 78 U/L (12-78); AST/SGOT 28 U/L (15-37); Albumin 2.7 g/dL (3.4-5.0); Alkaline Phosphatase 34 U/L (45-117); BUN Blood Urea Nitrogen 32 mg/dL (7-18); Bicarbonate 25 mmol/L (21-32); Bilirubin Total 0.7 mg/dL (0.2-1.0); C-Reactive Protein 9.53 mg/L (<3.00); Ferritin 822.6 ng/mL (26-388); Glucose Level 151 mg/dL (74-106); Magnesium 2.8 mg/dL (1.8-2.4); Potassium 4.7 mmol/L (3.5-5.1); Protein, Total 7.3 g/dL (6.4-8.2); Sodium Level 138 mmol/L (136-145)
[2021-03-08] MEDS: RIVAROXABAN 20 MG TABLET PO SCH (08:35)
[2021-03-08] MEDS: METFORMIN HCL 500 MG TAB PO SCH (08:36)
[2021-03-08] MEDS: ZINC SULFATE 220 MG CAP PO SCH (08:36)
[2021-03-08] MEDS: ASCORBIC ACID 500 MG TABLET PO SCH ×4 (08:36→19:54)
[2021-03-08] MEDS: ASPIRIN EC 81 MG TAB PO SCH (08:36)
[2021-03-08] MEDS: BARICITINIB 2 MG TABLET PO SCH (08:36)
[2021-03-08] MEDS: METHYLPREDNISOLONE 125 MG INJ IV SCH ×3 (08:36→19:55)
[2021-03-08] MEDS: VITAMIN D 1000 UNIT TAB PO SCH (08:36)
[2021-03-08] MEDS: FAMOTIDINE 20 MG TAB PO SCH ×2 (08:36→19:54)
[2021-03-08] MEDS: THIAMINE HCL 100 MG TABLET PO SCH (08:36)
[2021-03-08 09:03] LABS: Blood Morphology Comment NOT SEEN (NOT SEEN); Platelet Estimate ADEQ
[2021-03-09 06:19] LABS: Absolute Lymphocytes (CBC) 0.4 K/uL (0.7-4.9); Basophils % 0.3 % (0-1.3); Hematocrit 42.6 % (39.6-49.0); Lymphocytes % 3.8 % (15.3-44.8); MPV 8.8 fL (7.6-11.3)
[2021-03-09 06:34] LABS: ALT/SGPT 103 U/L (12-78); AST/SGOT 27 U/L (15-37); Albumin 2.7 g/dL (3.4-5.0); Alkaline Phosphatase 34 U/L (45-117); BUN Blood Urea Nitrogen 33 mg/dL (7-18); Bicarbonate 27 mmol/L (21-32); Bilirubin Total 0.8 mg/dL (0.2-1.0); Glucose Level 159 mg/dL (74-106); Magnesium 2.6 mg/dL (1.8-2.4); Potassium 4.7 mmol/L (3.5-5.1); Protein, Total 7.4 g/dL (6.4-8.2); Sodium Level 138 mmol/L (136-145)
[2021-03-09] MEDS: VITAMIN D 1000 UNIT TAB PO SCH (08:28)
[2021-03-09] MEDS: FAMOTIDINE 20 MG TAB PO SCH ×2 (08:28→20:05)
[2021-03-09] MEDS: METFORMIN HCL 500 MG TAB PO SCH (08:28)
[2021-03-09] MEDS: ASPIRIN EC 81 MG TAB PO SCH (08:28)
[2021-03-09] MEDS: ASCORBIC ACID 500 MG TABLET PO SCH ×4 (08:28→20:05)
[2021-03-09] MEDS: RIVAROXABAN 20 MG TABLET PO SCH (08:28)
[2021-03-09] MEDS: THIAMINE HCL 100 MG TABLET PO SCH (08:28)
[2021-03-09] MEDS: ZINC SULFATE 220 MG CAP PO SCH (08:28)
[2021-03-09] MEDS: METHYLPREDNISOLONE 125 MG INJ IV SCH ×3 (08:28→20:05)
[2021-03-09] MEDS: BENZONATATE 100 MG CAP PO PRN (08:29)
[2021-03-09] MEDS: BARICITINIB 2 MG TABLET PO SCH (08:29)
[2021-03-09 09:55] LABS: Blood Morphology Comment NOT SEEN (NOT SEEN); Platelet Estimate ADEQ; White Blood Cell Scan OK (OK)
[2021-03-09] MEDS ORDERED: GUAIFENESIN/CODEINE 5ML UCUP PO PRN (10:41)
[2021-03-09] MEDS: BENZONATATE 100 MG CAP PO SCH ×2 (13:46→20:05)
--- NOTE | 2021-03-09 14:38 | P.PN ---
Subjective Date of Service: 03/09/21 Primary Care Provider: None Chief Complaint: COVID-19 pneumonia Subjective: Improving (Sat improving) Review of Systems Respiratory: Shortness of Breath Physical Examination - Vital Signs Temperature: 98.0 F Blood Pressure: 125/63 Pulse: 59 Respirations: 26 Pulse Ox (%): 94 Assessment & Plan - Problems (Diagnosis) (1) Pneumonia due to COVID-19 virus Current Visit: Yes Status: Acute Plan: Improving titrate O2 down. pland for DC
--- NOTE | 2021-03-09 15:48 | P.PN ---
Subjective Date of Service: 03/07/21 Subjective: No new changes, No C/O voiced, Improving Review of Systems 10-point ROS is otherwise unremarkable Physical Examination - Vital Signs Temperature: 98.0 F Blood Pressure: 125/63 Pulse: 59 Respirations: 26 Pulse Ox (%): 94 - Physical Exam General: Alert, In no apparent distress, Oriented x3 HEENT: Atraumatic, PERRLA, EOMI Neck: Supple, JVD not distended Respiratory: Diminished, Expiratory wheezes Cardiovascular: Other (Francois arrhythmia) Gastrointestinal: Normal bowel sounds, Soft and benign, Non-distended, No tend erness Musculoskeletal: No clubbing, No swelling, No tenderness Neurological: Sensation intact, Cranial nerves 3-12 intact - Studies Medications List Reviewed: Yes Assessment & Plan - Problems (Diagnosis) (1) Pneumonia due to COVID-19 virus Current Visit: Yes Status: Acute (2) Morbid obesity Current Visit: Yes Status: Acute - Plan 1. Continue with IV steroids 2. Monitor inflammatory markers 3. Repeat chest x-ray is symptoms are progressively worsening 4. O2 per protocol 5. Pulmonary consultation appreciated 6. Continue with albuterol inhaler therapy; also supportive care 7. Monitor LFTs 8. GI and DVT prophylaxis - Advance Directives Does patient have a Living Will: No Does patient have a Durable POA for Healthcare: No - Code Status/Comfort Care Code Status Assessed: Yes Code Status: Full Code Critical Care: Yes Time Spent Managing PTS Care (In Minutes): 45
--- NOTE | 2021-03-09 15:51 | P.PN ---
Date of Service: 03/08/21 Subjective Subjective: Patient still coughing quite a bit. He gets really bradycardic and I have otherwise no new changes. Slowly improving. Not really gain out of bed and doing much so will encourage this Review of Systems 10-point ROS is otherwise unremarkable Physical Examination - Vital Signs reviewed - Physical Exam General: Alert, In no apparent distress, Oriented x3 Respiratory: Diminished, Expiratory wheezes Cardiovascular: Other (Francois arrhythmia) Gastrointestinal: Normal bowel sounds, Soft and benign, Non-distended, No tenderness Musculoskeletal: No clubbing, No swelling, No tenderness Neurological: Sensation intact, Cranial nerves 3-12 intact Assessment & Plan - Problems (Diagnosis) (1) Pneumonia due to COVID-19 virus Current Visit: Yes Status: Acute (2) Morbid obesity Current Visit: Yes Status: Acute - Plan Continue with plan of care as mentioned below: 1. Continue with IV steroids 2. Monitor inflammatory markers 3. Repeat chest x-ray is symptoms are progressively worsening 4. O2 per protocol 5. Pulmonary consultation appreciated 6. Continue with albuterol inhaler therapy; also supportive care 7. Monitor LFTs 8. GI and DVT prophylaxis
--- NOTE | 2021-03-09 15:52 | P.PN ---
Date of Service: 03/09/21 Subjective Subjective: Remains bradycardic at times when he is sleeping. Otherwise no new complaints. Patient still little tachypneic. Slowly improving. Review of Systems 10-point ROS is otherwise unremarkable Physical Examination - Vital Signs reviewed - Physical Exam General: Alert, In no apparent distress, Oriented x3 Respiratory: Diminished, Expiratory wheezes Cardiovascular: Other (Francois arrhythmia) Gastrointestinal: Normal bowel sounds, Soft and benign, Non-distended, No ten derness Musculoskeletal: No clubbing, No swelling, No tenderness Neurological: Sensation intact, Cranial nerves 3-12 intact Assessment & Plan - Problems (Diagnosis) (1) Pneumonia due to COVID-19 virus Current Visit: Yes Status: Acute (2) Morbid obesity Current Visit: Yes Status: Acute - Plan Continue with plan of care as mentioned below: 1. Continue with IV steroids 2. Monitor inflammatory markers 3. Repeat chest x-ray is symptoms are progressively worsening 4. O2 per protocol 5. Pulmonary consultation appreciated 6. Continue with albuterol inhaler therapy; also supportive care 7. Monitor LFTs 8. GI and DVT prophylaxis
[2021-03-10 06:50] LABS: Absolute Lymphocytes (CBC) 0.3 K/uL (0.7-4.9); Basophils % 0.2 % (0-1.3); Hematocrit 42.5 % (39.6-49.0); Lymphocytes % 3.1 % (15.3-44.8); MPV 8.3 fL (7.6-11.3)
[2021-03-10 07:04] LABS: ALT/SGPT 119 U/L (12-78); AST/SGOT 20 U/L (15-37); Albumin 2.8 g/dL (3.4-5.0); Alkaline Phosphatase 35 U/L (45-117); BUN Blood Urea Nitrogen 32 mg/dL (7-18); Bicarbonate 30 mmol/L (21-32); Bilirubin Total 0.8 mg/dL (0.2-1.0); Glucose Level 169 mg/dL (74-106); Potassium 5.3 mmol/L (3.5-5.1); Protein, Total 7.3 g/dL (6.4-8.2); Sodium Level 139 mmol/L (136-145)
--- NOTE | 2021-03-10 07:21 | RAD REPORT ---
EXAM DESCRIPTION: RAD - Chest Single View - 03/10/2021 5:02 am CLINICAL HISTORY: penumonia COMPARISON: Chest Single View dated 03/06/2021; Chest Single View dated 03/05/2021; Chest Single View da keke 03/03/2021; Chest Single View dated 08/06/2017 FINDINGS: Moderate bilateral widespread airspace disease which is similar to prior. Enlarged cardiac silhouette.No acute osseous abnormality. No significant pleural effusions or pneumothorax. IMPRESSION: No significant change in widespread bilateral airspace disease concerning multifocal pne umonia.
[2021-03-10] MEDS: THIAMINE HCL 100 MG TABLET PO SCH (09:23)
[2021-03-10] MEDS: ASPIRIN EC 81 MG TAB PO SCH (09:24)
[2021-03-10] MEDS: RIVAROXABAN 20 MG TABLET PO SCH (09:24)
[2021-03-10] MEDS: BARICITINIB 2 MG TABLET PO SCH (09:24)
[2021-03-10] MEDS: METFORMIN HCL 500 MG TAB PO SCH (09:24)
[2021-03-10] MEDS: FAMOTIDINE 20 MG TAB PO SCH ×2 (09:24→21:12)
[2021-03-10] MEDS: METHYLPREDNISOLONE 125 MG INJ IV SCH ×3 (09:24→21:13)
[2021-03-10] MEDS: VITAMIN D 1000 UNIT TAB PO SCH (09:24)
[2021-03-10] MEDS: ZINC SULFATE 220 MG CAP PO SCH (09:24)
[2021-03-10] MEDS: BENZONATATE 100 MG CAP PO SCH ×3 (09:24→21:12)
[2021-03-10] MEDS: ASCORBIC ACID 500 MG TABLET PO SCH ×4 (09:25→21:12)
[2021-03-11 06:31] LABS: MPV 8.6 fL (7.6-11.3); RBC Red Blood Cell Count 4.52 M/uL (4.33-5.43)
[2021-03-11 06:40] LABS: ALT/SGPT 111 U/L (12-78); AST/SGOT 20 U/L (15-37); Albumin 2.6 g/dL (3.4-5.0); Alkaline Phosphatase 33 U/L (45-117); BUN Blood Urea Nitrogen 30 mg/dL (7-18); Bicarbonate 27 mmol/L (21-32); Bilirubin Total 0.6 mg/dL (0.2-1.0); Ferritin 671.8 ng/mL (26-388); Glucose Level 184 mg/dL (74-106); Protein, Total 6.7 g/dL (6.4-8.2); Sodium Level 135 mmol/L (136-145)
[2021-03-11 08:30] LABS: Platelet Estimate INCR
[2021-03-11 08:31] LABS: Blood Morphology Comment NOT SEEN (NOT SEEN)
[2021-03-11] MEDS: BENZONATATE 100 MG CAP PO SCH ×3 (08:42→19:15)
[2021-03-11] MEDS: ASCORBIC ACID 500 MG TABLET PO SCH ×4 (08:42→19:15)
[2021-03-11] MEDS: THIAMINE HCL 100 MG TABLET PO SCH (08:42)
[2021-03-11] MEDS: VITAMIN D 1000 UNIT TAB PO SCH (08:42)
[2021-03-11] MEDS: BARICITINIB 2 MG TABLET PO SCH (08:42)
[2021-03-11] MEDS: ASPIRIN EC 81 MG TAB PO SCH (08:42)
[2021-03-11] MEDS: ZINC SULFATE 220 MG CAP PO SCH (08:42)
[2021-03-11] MEDS: RIVAROXABAN 20 MG TABLET PO SCH (08:44)
[2021-03-11] MEDS: FAMOTIDINE 20 MG TAB PO SCH ×2 (08:44→19:16)
[2021-03-11] MEDS: METHYLPREDNISOLONE 125 MG INJ IV SCH ×3 (08:44→19:16)
[2021-03-11] MEDS: METFORMIN HCL 500 MG TAB PO SCH (08:44)
--- NOTE | 2021-03-11 10:23 | P.PN ---
Date of Service: 03/10/21 Subjective Subjective: Patient doing well. On nasal cannula. Improving quickly. Hopefully discharge over the next 24-48 hr. Review of Systems 10-point ROS is otherwise unremarkable Physical Examination - Vital Signs reviewed - Physical Exam General: Alert, In no apparent distress, Oriented x3 Respiratory: Diminished but otherwise clear Cardiovascular: Other (Francois arrhythmia) Gastrointestinal: Normal bowel sounds, Soft and benign, Non-distended, No tenderness Musculoskeletal: No clubbing, No swelling, No tenderness Neurological: Sensation intact, Cranial nerves 3-12 intact Assessment & Plan - Problems (Diagnosis) (1) Pneumonia due to COVID-19 virus Current Visit: Yes Status: Acute (2) Morbid obesity Current Visit: Yes Status: Acute - Plan Continue with plan of care as mentioned below: 1. Continue with IV steroids 2. Monitor inflammatory markers 3. Repeat chest x-ray if necessary 4. O2 per protocol; oxygen requirements decreasing. Anticipate discharge over 24-48 hr 5. Pulmonary consultation appreciated 6. Continue with albuterol inhaler therapy; also supportive care 7. GI and DVT prophylaxis
[2021-03-11] MEDS ORDERED: ENSURE HIGH PROTEIN 237 ML CAN PO PRN (13:38)
[2021-03-12 06:02] LABS: Absolute Lymphocytes (CBC) 0.4 K/uL (0.7-4.9); Basophils % 0.1 % (0-1.3); Hematocrit 41.5 % (39.6-49.0); Lymphocytes % 3.9 % (15.3-44.8); MPV 8.5 fL (7.6-11.3); RBC Red Blood Cell Count 4.58 M/uL (4.33-5.43)
[2021-03-12 06:28] LABS: ALT/SGPT 103 U/L (12-78); AST/SGOT 15 U/L (15-37); Albumin 2.6 g/dL (3.4-5.0); Alkaline Phosphatase 32 U/L (45-117); BUN Blood Urea Nitrogen 25 mg/dL (7-18); Bicarbonate 27 mmol/L (21-32); Bilirubin Total 0.6 mg/dL (0.2-1.0); Ferritin 666.5 ng/mL (26-388); Glucose Level 190 mg/dL (74-106); Potassium 4.6 mmol/L (3.5-5.1); Protein, Total 6.6 g/dL (6.4-8.2); Sodium Level 135 mmol/L (136-145)
--- NOTE | 2021-03-12 07:53 | P.PN ---
Date of Service: 03/11/21 Subjective Subjective: Patient is doing well with no new complaints. He is feeling better however he is not doing much in bed. Have encouraged him to get out and move around. Review of Systems 10-point ROS is otherwise unremarkable Physical Examination - Vital Signs reviewed - Physical Exam General: Alert, In no apparent distress, Oriented x3 Respiratory: Diminished but otherwise clear Cardiovascular: Other (Francois arrhythmia) Gastrointestinal: Normal bowel sounds, Soft and benign, Non-distended, No tenderness Musculoskeletal: No clubbing, No swelling, No tenderness Neurological: Sensation intact, Cranial nerves 3-12 intact Assessment & Plan - Problems (Diagnosis) (1) Pneumonia due to COVID-19 virus Current Visit: Yes Status: Acute (2) Morbid obesity Current Visit: Yes Status: Acute - Plan Continue with plan of care as mentioned below: 1. start weaning down the oxygen and weaning down the steroids. Clinically starting to do better. 2. Continue with supportive care and anticipate discharge over the next 24-48 hr. He start again out of bed and ambulating more.
[2021-03-12 07:54] LABS: Blood Morphology Comment NOT SEEN (NOT SEEN); Platelet Estimate INCR
[2021-03-12] MEDS: BARICITINIB 2 MG TABLET PO SCH (09:48)
[2021-03-12] MEDS: BENZONATATE 100 MG CAP PO SCH ×3 (09:48→20:58)
[2021-03-12] MEDS: ASPIRIN EC 81 MG TAB PO SCH (09:49)
[2021-03-12] MEDS: RIVAROXABAN 20 MG TABLET PO SCH (09:49)
[2021-03-12] MEDS: VITAMIN D 1000 UNIT TAB PO SCH (09:49)
[2021-03-12] MEDS: THIAMINE HCL 100 MG TABLET PO SCH (09:49)
[2021-03-12] MEDS: METFORMIN HCL 500 MG TAB PO SCH (09:49)
[2021-03-12] MEDS: ZINC SULFATE 220 MG CAP PO SCH (09:49)
[2021-03-12] MEDS: FAMOTIDINE 20 MG TAB PO SCH ×2 (09:49→20:58)
[2021-03-12] MEDS: ASCORBIC ACID 500 MG TABLET PO SCH ×4 (09:49→20:58)
[2021-03-12] MEDS: METHYLPREDNISOLONE 125 MG INJ IV SCH ×3 (09:49→20:57)
--- NOTE | 2021-03-12 11:27 | P.PN ---
Subjective Date of Service: 03/12/21 Primary Care Provider: None Chief Complaint: COVID-19 pneumonia Subjective: No new changes (Seen, doing well, comfortable on room nasal cannula O2 Tolerating 9 L nasal cannula State he is ambulating more in the room now) Physical Examination - Vital Signs Temperature: 99 F Blood Pressure: 109/65 Pulse: 41 Respirations: 20 Pulse Ox (%): 97 - Physical Exam General: In no apparent distress, Oriented x3, Obese HEENT: Atraumatic, Normocephalic, PERRLA Neck: Supple, 2+ carotid pulse no bruit, JVD not distended Respiratory: Normal air movement, Diminished Cardiovascular: No edema, Normal pulses, Regular rate/rhythm, Normal S1 S2 Gastrointestinal: Normal bowel sounds, Soft and benign, Non-distended Musculoskeletal: No clubbing, No swelling Neurological: Normal gait, Normal speech, Normal strength at 5/5 x4 extr - Studies Medications List Reviewed: Yes Assessment And Plan Physician Review: Patient Assessed, Agree with Above Assessment and Plan Physician Review Additional Text: COVID: Positive Impression: Acute hypoxic respiratory failure secondary to COVID-19 pneumonia, unvaccinated Acute kidney injury Hyperglycemia related to new diabetes mellitus type 2 Obesity, BMI 38 Plan: Doing well, continue to wean O2 Satting well at 97%, O2 requirements reduced to 7 L now, follow with continuous pulse ox monitoring Slowly overall improving, continue current regimen Status post steroids/baricitinib Improved CRP and ferritin, no urgent need for further follow-up labs now Acute kidney injury: Overall stable. Encourage oral intake. Hyperglycemia related to new diabetes mellitus type 2: Continue Metformin and in sulin sliding scale Obesity, BMI 38: Continue lifestyle modification education DVT PPX: Xarelto Code status: Full Discharge Plan: Home Time Spent Managing PTS Care (In Minutes): 30
--- NOTE | 2021-03-13 06:15 | P.PN ---
Subjective Date of Service: 03/13/21 Primary Care Provider: None Chief Complaint: COVID-19 pneumonia Subjective: Improving (Currently on 6 L per nasal cannula. Patient doing better) Physical Examination - Vital Signs Temperature: 97.6 F Blood Pressure: 117/71 Pulse: 52 Respirations: 16 Pulse Ox (%): 94 - Studies Medications List Reviewed: Yes Assessment & Plan Discharge Plan: Home Plan to discharge in: 24 Hours Physician Review Additional Text: COVID: Positive Initial Chest x-ray: COMPARISON: 2017 FINDINGS: Moderate bilateral pulmonary opacities. Heart is normal size IMPRESSION: Moderate bilateral pulmonary opacities likely pneumonia Follow up CXR: COMPARISON: Chest Single View dated 03/05/2021; Chest Single View dated 03/03/2021; Chest Single View dated 08/06/2017 FINDINGS: Widespread bilateral airspace disease is unchanged since yesterday The heart size is within normal limits.No acute osseous abnormality. No significant pleural effusions or pneumothorax. IMPRESSION: No change in the widespread airspace disease compared with 03/05/2021. Physical exam: General: Alert, In no apparent distress, Obese HEENT: Atraumatic, PERRLA, Mucous membr. moist/pink, EOMI, Sclerae nonicteric Neck: Supple, 2+ carotid pulse no bruit, No LAD, Without JVD or thyroid abn ormality Respiratory: Better air movement bilateral. Currently on 6 L per nasal cannula. Cardiovascular: Regular rate/rhythm, Normal S1 S2 Gastrointestinal: Normal bowel sounds, No tenderness Musculoskeletal: No tenderness Integumentary: No rashes Neurological: Normal gait, Normal speech, Normal strength at 5/5 x4 extr, Normal tone, Normal affect Lymphatics: No axilla or inguinal lymphadenopathy Impression: Acute hypoxic respiratory failure secondary to COVID-19 pneumonia, unvaccinated Acute kidney injury Hyperglycemia related to new diabetes mellitus type 2 Obesity, BMI 38 Plan: Acute hypoxic respiratory failure secondary to COVID-19 pneumonia, unvaccinated: Clinically improved. Currently on 6 L per nasal cannula. Continue IV steroids, supplementation and baricitinib. Continue to monitor CRP and ferritin which have improved. Case discussed with pulmonology. Continue with recommendations. Encourage incentive spirometer, proning, and ambulation. Respiratory to continue to wean off to maintain sats above 93%. Anticipate continued improvement. Likely home tomorrow. Acute kidney injury: Overall stable. Encourage oral intake. Hyperglycemia related to new diabetes mellitus type 2: Hemoglobin A1c 6.5. Patient with new onset diabetes. Continue Metformin daily. Will monitor Accu- Cheks. Lifestyle modification education provided. Obesity, BMI 38: Continue lifestyle modification education DVT PPX: Glento Code status: Full Discharge Plan: Home likely tomorrow Time Spent Managing Pts Care (In Minutes): 55
[2021-03-13] MEDS: RIVAROXABAN 20 MG TABLET PO SCH (08:40)
[2021-03-13] MEDS: VITAMIN D 1000 UNIT TAB PO SCH (08:41)
[2021-03-13] MEDS: ASCORBIC ACID 500 MG TABLET PO SCH ×4 (08:41→21:38)
[2021-03-13] MEDS: BENZONATATE 100 MG CAP PO SCH ×3 (08:41→21:38)
[2021-03-13] MEDS: THIAMINE HCL 100 MG TABLET PO SCH (08:41)
[2021-03-13] MEDS: FAMOTIDINE 20 MG TAB PO SCH ×2 (08:41→21:38)
[2021-03-13] MEDS: ASPIRIN EC 81 MG TAB PO SCH (08:41)
[2021-03-13] MEDS: ZINC SULFATE 220 MG CAP PO SCH (08:42)
[2021-03-13] MEDS: METFORMIN HCL 500 MG TAB PO SCH (08:42)
[2021-03-13] MEDS: METHYLPREDNISOLONE 125 MG INJ IV SCH ×2 (08:42→13:34)
[2021-03-13] MEDS: BARICITINIB 2 MG TABLET PO SCH (08:42)
--- NOTE | 2021-03-13 12:49 | P.PN ---
Subjective Date of Service: 03/13/21 Primary Care Provider: None Chief Complaint: COVID-19 pneumonia Subjective: Improving (Doign well) Review of Systems 10-point ROS is otherwise unremarkable Physical Examination - Vital Signs Temperature: 97.2 F Blood Pressure: 115/73 Pulse: 52 Respirations: 26 Pulse Ox (%): 95 - Physical Exam General: Alert, Oriented x3 - Studies Medications List Reviewed: Yes Assessment & Plan - Problems (Diagnosis) (1) Pneumonia due to COVID-19 virus Current Visit: Yes Status: Acute Plan: Doing well/Plan for Dc O2 Physician Review: Patient Assessed, Agree with Above Assessment and Plan
[2021-03-13] MEDS: METHYLPREDNISOLONE 40 MG INJ IV SCH (21:38)
[2021-03-14 05:18] LABS: Absolute Lymphocytes (CBC) 0.4 K/uL (0.7-4.9); Basophils % 0.1 % (0-1.3); Hematocrit 41.2 % (39.6-49.0); Lymphocytes % 3.9 % (15.3-44.8); MPV 8.4 fL (7.6-11.3); RBC Red Blood Cell Count 4.57 M/uL (4.33-5.43)
[2021-03-14 05:41] LABS: ALT/SGPT 101 U/L (12-78); AST/SGOT 15 U/L (15-37); Albumin 2.6 g/dL (3.4-5.0); Alkaline Phosphatase 35 U/L (45-117); BUN Blood Urea Nitrogen 22 mg/dL (7-18); Bicarbonate 28 mmol/L (21-32); Bilirubin Total 0.6 mg/dL (0.2-1.0); Ferritin 695.8 ng/mL (26-388); Glucose Level 203 mg/dL (74-106); Magnesium 2.1 mg/dL (1.8-2.4); Potassium 4.6 mmol/L (3.5-5.1); Protein, Total 6.5 g/dL (6.4-8.2); Sodium Level 135 mmol/L (136-145)
[2021-03-14 05:45] LABS: C-Reactive Protein < 2.90 mg/L (<3.00)
[2021-03-14] MEDS: ASPIRIN EC 81 MG TAB PO SCH (07:48)
[2021-03-14] MEDS: BENZONATATE 100 MG CAP PO SCH ×3 (07:48→20:05)
[2021-03-14] MEDS: VITAMIN D 1000 UNIT TAB PO SCH (07:48)
[2021-03-14] MEDS: ZINC SULFATE 220 MG CAP PO SCH (07:48)
[2021-03-14] MEDS: THIAMINE HCL 100 MG TABLET PO SCH (07:49)
[2021-03-14] MEDS: METHYLPREDNISOLONE 40 MG INJ IV SCH ×2 (07:49→20:05)
[2021-03-14] MEDS: ASCORBIC ACID 500 MG TABLET PO SCH ×4 (07:49→20:05)
[2021-03-14] MEDS: FAMOTIDINE 20 MG TAB PO SCH ×2 (07:49→20:05)
[2021-03-14] MEDS: METFORMIN HCL 500 MG TAB PO SCH (07:49)
[2021-03-14] MEDS: RIVAROXABAN 20 MG TABLET PO SCH (07:50)
[2021-03-14] MEDS: BARICITINIB 2 MG TABLET PO SCH (07:52)
--- NOTE | 2021-03-14 08:55 | P.DS ---
Admission Date: 03/04/21 Discharge Date: 03/14/21 Primary Care Provider: None Disposition: ROUTINE DISCHARGE Discharge Condition: GOOD Reason for Admission: COVID-19 pneumonia Consultations: Pulmonary-Dr. Nichols Procedures: COVID: Positive, unvaccinated Initial Chest x-ray: COMPARISON: 2017 FINDINGS: Moderate bilateral pulmonary opacities. Heart is normal size IMPRESSION: Moderate bilateral pulmonary opacities likely pneumonia Follow up CXR: COMPARISON: Chest Single View dated 03/05/2021; Chest Single View dated 03/03/2021; Chest Single View dated 08/06/2017 FINDINGS: Widespread bilateral airspace disease is unchanged since yesterday The heart size is within normal limits.No acute osseous abnormality. No significant pleural effusions or pneumothorax. IMPRESSION: No change in the widespread airspace disease compared with 03/05/2021. Medical problem list Acute hypoxic respiratory failure secondary to COVID-19 pneumonia, unvaccinated Acute kidney injury Hyperglycemia related to new diabetes mellitus type 2 Obesity, BMI 38 Brief History of Present Illness: 30-year-old male with no significant past medical history aside from obesity presents emergency department for shortness of breath. Patient reports testing positive for Covid on 02/23/2021, patient is not vaccinated. Patient was evaluated in the emergency department found to be significantly hypoxic on room air with saturations in the 70s, patient currently on high flow nasal cannula. Labs significant for sodium 135 creatinine 1.52 GFR 54 BUN 21 ferritin 1505 AST 44 alk phos 43 C-reactive protein 89.2 white blood cell count 10.10 chest x-ray demonstrating bilateral pneumonia consistent with COVID-19 pattern. Patient was admitted for treatment. Hospital Course: Patient presented with acute hypoxic respiratory failure secondary to COVID-19 pneumonia. Patient is unvaccinated. Patient was admitted for treatment. Patient received IV steroids, vitamin supplementation and baricitinib. His condition has improved. Patient doing well at this time. No significant shortness of breath noted. At discharge home oxygen has been arranged. Patient currently on 4 L per nasal cannula. Patient to maintain oxygen above 93%. This can be monitored as an outpatient. At discharge the patient will continue with prednisone 20 mg 1 pill twice daily for 7 days then 1 pill once daily for 7 days. The patient will continue with aspirin 81 mg daily. A limited supply of Robitussin with codeine 5 mL 3 times a day as needed for cough will be provided. The patient will continue with vitamin supplementation including zinc 220 mg 1 pill daily, thiamine 100 mg 1 pill twice daily, vitamin C 500 mg 3 times a day, and vitamin D 2000 units daily. Patient will continue with CDC guidelines on isolation for at least 10 days. The patient will continue with incentive spirometer as directed. Recommend to continue proning, ambulation. Patient may need to limit his activities until he is completely off of oxygen. No work until cleared by pulmonology. Recommend the patient to continue with CDC guidelines on face mask use, handwashing, and social distancing. Recommend follow-up with pulmonology in 1 to 2 weeks to follow-up with his hospitalization and continue his care. Pulmonology will help wean him off oxygen. Recommend to establish care with a local PCP to continue his care as well in to follow-up this hospitalization. Information will be provided. Patient also had acute renal injury likely from dehydration. This has resolved. Patient presented with hyperglycemia. Patient found to be new diabetes mellitus type 2. Hemoglobin A1c 6.5. Blood sugar stable. At discharge the patient will continue with Metformin 500 mg daily with food. Recommend to monitor blood sugar at least twice daily. Recommend to maintain blood sugar less than 140 fasting and less than 200 after meals. Education on diabetes will be provided. Recommend to recheck hemoglobin A1c every 3 months to monitor his progress. Recommend to follow-up with a PCP to further monitor his care. Patient with obesity, BMI 38. Lifestyle modification education provided. Vital Signs/Physical Exam: Temp Pulse Resp BP Pulse Ox 97.9 F 46 L 20 111/68 93 03/14/21 08:00 03/14/21 08:00 03/14/21 08:00 03/14/21 08:00 03/14/21 08:00 General: Alert, In no apparent distress, Oriented x3, Cooperative HEENT: Atraumatic Neck: Supple Respiratory: Clear to auscultation bilaterally, Normal air movement, Other (Currently on 4 L per nasal cannula.) Cardiovascular: Regular rate/rhythm Gastrointestinal: Normal bowel sounds Musculoskeletal: No erythema, No tenderness, No warmth Integumentary: No tenderness/swelling Neurological: Normal speech, Normal strength at 5/5 x4 extr, Normal tone Laboratory Data at Discharge: WBC 10.60 K/uL (4.3-10.9) 03/14/21 05:06 Hgb 14.0 g/dL (13.6-17.9) 03/14/21 05:06 Hct 41.2 % (39.6-49.0) 03/14/21 05:06 Plt Count 393 K/uL (152-406) 03/14/21 05:06 PT 15.2 SECONDS (9.5-12.5) H 03/04/21 01:07 INR 1.32 03/04/21 01:07 Sodium 135 mmol/L (136-145) L 03/14/21 05:06 Potassium 4.6 mmol/L (3.5-5.1) 03/14/21 05:06 BUN 22 mg/dL (7-18) H 03/14/21 05:06 Creatinine 0.71 mg/dL (0.55-1.3) 03/14/21 05:06 Glucose 203 mg/dL (74-106) H 03/14/21 05:06 Magnesium 2.1 mg/dL (1.8-2.4) D 03/14/21 05:06 Total Bilirubin 0.6 mg/dL (0.2-1.0) 03/14/21 05:06 AST 15 U/L (15-37) 03/14/21 05:06 ALT 101 U/L (12-78) H 03/14/21 05:06 Alkaline Phosphatase 35 U/L (45-117) L 03/14/21 05:06 Home Medications: Ascorbic Acid [Vitamin C*] 500 mg PO TID #90 tablet 03/14/21 Aspirin [Aspirin EC 81 MG] 81 mg PO DAILY #30 tablet. 03/14/21 Cholecalciferol (Vitamin D3) [Vitamin D 1000 Iu Tab*] 2,000 unit PO DAILY #60 tab 03/14/21 Guaifen W/Codeine Syrup [ROBITUSSIN A-C Syrup*] 5 ml PO TID #1 bottle 03/14/21 Metformin HCl [Glucophage*] 500 mg PO DAILY WITH BREAKFAST #30 tab 03/14/21 Thiamine HCl [Vitamin B-1*] 100 mg PO BID #60 tablet 03/14/21 Zinc Sulfate [Zinc Sulfate*] 220 mg PO DAILY #30 cap 03/14/21 predniSONE [Prednisone*] 20 mg PO SEECOM #21 tab 03/14/21 New Medications: Aspirin [Aspirin EC 81 MG] 81 mg PO DAILY #30 tablet. Metformin HCl [Glucophage*] 500 mg PO DAILY WITH BREAKFAST #30 tab predniSONE [Prednisone*] 20 mg PO SEECOM #21 tab Guaifen W/Codeine Syrup [ROBITUSSIN A-C Syrup*] 5 ml PO TID #1 bottle Thiamine HCl [Vitamin B-1*] 100 mg PO BID #60 tablet Ascorbic Acid [Vitamin C*] 500 mg PO TID #90 tablet Cholecalciferol (Vitamin D3) [Vitamin D 1000 Iu Tab*] 2,000 unit PO DAILY #60 tab Zinc Sulfate [Zinc Sulfate*] 220 mg PO DAILY #30 cap Physician Discharge Instructions: Patient presented with acute hypoxic respiratory failure secondary to COVID-19 pneumonia. Patient is unvaccinated. Patient was admitted for treatment. Patient received IV steroids, vitamin supplementation and baricitinib. His condition has improved. Patient doing well at this time. No significant shortness of breath noted. At discharge home oxygen has been arranged. Patient currently on 4 L per nasal cannula. Patient to maintain oxygen above 93%. This can be monitored as an outpatient. At discharge the patient will continue with prednisone 20 mg 1 pill twice daily for 7 days then 1 pill once daily for 7 days. The patient will continue with aspirin 81 mg daily. A limited supply of Robitussin with codeine 5 mL 3 times a day as needed for cough will be provided. The patient will continue with vitamin supplementation including zinc 220 mg 1 pill daily, thiamine 100 mg 1 pill twice daily, vitamin C 500 mg 3 times a day, and vitamin D 2000 units daily. Patient will continue with CDC guidelines on isolation for at least 10 days. The patient will continue with incentive spirometer as directed. Recommend to continue proning, ambulation. Patient may need to limit his activities until he is completely off of oxygen. No work until cleared by pulmonology. Recommend the patient to continue with CDC guidelines on face mask use, handwashing, and social distancing. Recommend follow-up with pulmonology in 1 to 2 weeks to follow-up with his hospitalization and continue his care. Pulmonology will help wean him off oxygen. Recommend to establish care with a local PCP to continue his care as well in to follow-up this hospitalization. Information will be provided. Patient also had acute renal injury likely from dehydration. This has resolved. Patient presented with hyperglycemia. Patient found to be new diabetes mellitus type 2. Hemoglobin A1c 6.5. Blood sugar stable. At discharge the patient will continue with Metformin 500 mg daily with food. Recommend to monitor blood sugar at least twice daily. Recommend to maintain blood sugar less than 140 fasting and less than 200 after meals. Education on diabetes will be provided. Recommend to recheck hemoglobin A1c every 3 months to monitor his progress. Recommend to follow-up with a PCP to further monitor his care. Patient with obesity, BMI 38. Lifestyle modification education provided. Diet: ADA Activity: Ad laina Followup: NONE,NONE [Primary Care Provider] - Time spent managing pt's care (in minutes): 55
[2021-03-14 16:47] VITALS: TEMP 97.6
[2021-03-14 20:44] VITALS: BP 110/67; O2SAT 92
== END 2021-03-14 20:40 | disposition home or self-care (01) | DRG 177 ==
LOC: ER 21:25 → ERHOLD 03-04 02:48 → 4TH 03-07 10:55
PROVIDERS: ADMIT Family Medicine; ATTEND Family Medicine
DX: U07.1 COVID-19 (principal); J12.82 Pneumonia due to coronavirus disease 2019; J96.01 Acute respiratory failure with hypoxia; N17.9 Acute kidney failure, unspecified; E11.65 Type 2 diabetes mellitus with hyperglycemia; Z68.38 Body mass index [BMI] 38.0-38.9, adult; E86.0 Dehydration; E66.01 Morbid (severe) obesity due to excess calories
CPT/HCPCS: 36415; 71045; 80048; 80053; 80076; 81003; 81015; 82728; 82947; 83036; 83735; 83880; 84439; 84443; 84484; 85025; 85610; 86140; 87086; 87088; 94003; 94010; 94660; 94760; 96361; 96374; 96375; 97110; 97116; 97161; 97530; 99285; J1650; J2405; J2920; J2930; J7030

== ENCOUNTER 2022-06-04 21:45 | Emergency (ER) | payer SELFPAY ==
--- OUTSIDE RECORDS SUMMARY | 2022-06-04 21:48 | XMS REPORT | Continuity of Care Document ---
:[address] [facility] t Address [address] [place] [address] Care Team Providers Name Role Phone EFFIE CAMPBELL Attending Clinician Unavailable Lab, Adc Fam Pob I Attending Clinician Unavailable Effie Kinney Attending Clinician Payers Payer Name Policy Type Policy Number Effective Date Expiration Date S praful [facility] - [id number] 2019 00:00:00 OUT OF STATE Problems This patient has no known problems. Allergies, Adverse Reactions, Alerts Allergy Allergy Status Severity Reaction(s) Onset Inactive Treating Comm ents Source Name Type Date Date Clinician NO KNOWN Drug Active Univers ALLERGIE Class ity of [facility] Social History Social Habit Start Date Stop Date Quantity Comments Source Sex Assigned At Uni versity [facility] Smoking Status Start Date Stop Date Source Unknown if ever smoked Universit y [facility] Medications Ordered Filled Start Stop Current Ordering Indication Dosage Frequency Signature Comments Components Source Medication Medication Date Date Medication? Clinician (SIG) Name Name ibuprofen Yes 800mg Take 1 Unive rs 800 mg 5-16 tablet by ity of tablet 00:00: [facility] 00 every 8 Medical (eight) Branch hours as needed (PAIN). ondansetron Yes 4mg Take 1 Univ ers (ZOFRAN, 5-16 tablet by ity of HYDROCHLORI 00:00: mouth [place],) 4 mg 00 every 8 Medical tablet (eight) Branch hours as needed for Nausea and Vomiting (N/V). Procedures This patient has no known procedures. Encounters Start End Encounter Admission Attending Care Care Encounter Source Date/Time Date/Time Type Type Clinicians Facility Department ID 2020-02-19 2020-02-19 Outpatient R [facility] [id number] 13:20:00 13:20:00 EFFIE [facility] of [facility] 2020-02-19 2020-02-19 Laboratory Lab, [facility] [id number] 12:59:56 13:19:56 Only Fam Pob I Health [id number] [place] [id number] Professio [phone] [place] [address] [address] 2020-02-19 2020-02-19 Laboratory Lab, [facility] Fam Pob I [facility] [id number] [facility] 12:59:56 13:19:56 Only Effie [facility] [id number] ity of [place] [id number] J[place] as Professio [phone] S[place] dical [facility] [address] [place] [address] Results This patient has no known results.
[2022-06-04] MEDS ORDERED: FAMOTIDINE 20 MG/2 ML VIAL IV ONE (22:20)
[2022-06-04] MEDS ORDERED: NA CHLORIDE 0.9% 1,000 ML ONE (22:20)
[2022-06-04] MEDS ORDERED: ONDANSETRON 4 MG/2 ML VIAL ONE (22:20)
[2022-06-04 22:50] LABS: Absolute Lymphocytes (CBC) 1.4 K/uL (0.7-4.9); Hematocrit 41.2 % (39.6-49.0); Lymphocytes % 15.1 % (15.3-44.8); MCV 89.8 fL (80-100); MPV 9.4 fL (7.6-11.3); RBC Red Blood Cell Count 4.59 M/uL (4.33-5.43)
[2022-06-04 23:25] LABS: Albumin 3.6 g/dL (3.4-5.0); Bilirubin Total 0.3 mg/dL (0.2-1.0); Potassium 3.8 mmol/L (3.5-5.1); Protein, Total 7.6 g/dL (6.4-8.2)
[2022-06-04 23:28] LABS: Urine Blood Negative (Negative); Urine Glucose Negative (Negative); Urine Protein 1+ (Negative); Urine pH 8.5 (5.0-7.0)
[2022-06-04] MEDS ORDERED: KETOROLAC 30 MG/ML INJ ONE (23:31)
[2022-06-04 23:56] LABS: Barbiturates NEGATIVE (NEGATIVE); Benzodiazepines NEGATIVE (NEGATIVE); Cocaine NEGATIVE (NEGATIVE); METHAMPHETAM NEGATIVE (NEGATIVE); Methadone NEGATIVE (NEGATIVE); Opiates NEGATIVE (NEGATIVE); Phencyclidine NEGATIVE (NEGATIVE); THC Cannibis NEGATIVE (NEGATIVE)
[2022-06-05 00:01] LABS: Urine Crystals Unidentified Few /HPF (None Seen); Urine Mucus 2+ /HPF (None Seen)
[2022-06-05] MEDS ORDERED: ONDANSETRON 4 MG/2 ML VIAL ONE (00:05)
[2022-06-05] MEDS ORDERED: MORPHINE 4 MG/ML SYR ONE (00:05)
[2022-06-05] MEDS ORDERED: HYDROMORPHONE HCL 1 MG/ML INJ ONE (00:59)
--- NOTE | 2022-06-05 02:17 | ER ---
Nurse's Notes [facility] Name: Marcell Whyte Age: 32 yrs Sex: Male : 1990 Arrival Date: 06/04/2022 Time: 21:51 Bed 12 Private MD: Diagnosis: Other cholelithiasis without obstruction Presentation: 06/04 22:09 Chief complaint: Patient states: "Started feeling pain about an hour ago on my abdomen ke1 while walking out of [employer], it might be from my kidney stone because my Dr told me i had kidney stones". Coronavirus screen: Vaccine status: Patient reports having had a previously documented Covid positive illness. Ebola Screen: No symptoms or risks identified at this time. Initial Sepsis Screen: Does the patient meet any 2 criteria? No. Patient's initial sepsis screen is negative. Does the patient have a suspected source of infection? No. Patient's initial sepsis screen is negative. Risk Assessment: Do you want to hurt yourself or someone else? Patient reports no desire to harm self or others. Onset of symptoms was June 04, 2022 at 21:00. 22:09 Method Of Arrival: Ambulatory ke1 22:09 Acuity: MILTON 3 ke1 Triage Assessment: 22:14 General: Appears in no apparent distress. Behavior is appropriate for age. Pain: ke1 Complains of pain in epigastric Pain radiates to back Pain currently is 7 out of 10 on a pain scale. at worst was 10 out of 10 on a pain scale. level that patient reports is acceptable is 3 out of 10 on a pain scale. Also complains of shortness of breath. 22:15 GI: Abdomen is obese, Bowel sounds present X 4 quads. Abd is soft Abd is non tender ke1 Reports nausea. Historical: - Allergies: 22:12 No Known Allergies; ke1 - PMHx: 22:13 covid; ke1 - Immunization history:: Client reports receiving the 2nd dose of the Covid vaccine. - Social history:: Smoking status: Patient denies any tobacco usage or history of. Screenin:15 Abuse screen: Denies threats or abuse. Nutritional screening: No deficits noted. ke1 Tuberculosis screening: No symptoms or risk factors identified. Fall Risk None identified. Assessment: 23:33 Pain: Complains of pain in back + epigastric Pain currently is 10 out of 10 on a pain ke1 scale. 06/05 00:03 GI: Reports vomiting. ke1 01:01 Pain: Complains of pain in epigastric Pain currently is 10 out of 10 on a pain scale. ke1 02:13 Reassessment: Patient denies pain at this time. Patient states feeling better. Patient ke1 states symptoms have improved. 02:13 Reassessment: Pass PO challenge. ke1 Vital Signs: 06/04 22:09 BP 135 / 91; Pulse 57; Resp 19; Temp 98.5; Pulse Ox 100% on R/A; Weight 117.93 kg; ke1 Height 5 ft. 11 in. (180.34 cm); Pain 7/10; 06/05 00:00 BP 130 / 84; Pulse 56; Resp 19; Pulse Ox 100% on R/A; ke1 00:25 Pain 2/10; ke1 01:17 Pain 0/10; ke1 02:27 BP 116 / 72; Pulse 71; Resp 16; Temp 98.4; Pulse Ox 98% on R/A; Pain 0/10; ke1 06/04 22:09 Body Mass Index 36.26 (117.93 kg, 180.34 cm) ke1 ED Course: 06/04 21:51 Patient arrived in ED. ja2 21:53 Khoa Ambrose PA is PHCP. cp 21:53 Rikki Lucio MD is Attending Physician. cp 22:09 Dejan Dillard, DEBBIE is Primary Nurse. ke1 22:12 Triage completed. ke1 22:15 Arm band placed on left wrist. ke1 22:16 Placed in gown. Bed in low position. Call light in reach. ke1 22:35 Inserted saline lock: 20 gauge in right forearm, using aseptic technique. ke1 22:36 CBC with Diff Sent. ke1 22:36 CMP Sent. ke1 22:36 Lipase Sent. ke1 22:36 Troponin High Sensitivity Sent. ke1 23:11 XRAY Chest (1 view) In Process Unspecified. EDMS 23:20 Urine collected: clean catch specimen, clear, EKG done, by ED staff, reviewed by Khoa FAULKNER. 23:21 Patient has correct armband on for positive identification. Call light in reach. Pulse mm9 ox on. NIBP on. 23:28 UDS Sent. mm9 23:28 Urine Microscopic Only Sent. mm9 23:28 Urine collected: clean catch specimen, cloudy. mm9 06/05 00:17 Diet: Patient is NPO. mm9 00:41 US Abdomen Limited: gallbladder In Process Unspecified. EDMS 00:53 CT Stone Protocol In Process Unspecified. EDMS 02:16 Kole Machado MD is Referral Physician. cp 02:28 No provider procedures requiring assistance completed. IV discontinued. ke1 Administered Medications: 06/04 22:36 Drug: Pepcid (famotidine) 20 mg Route: IVP; Site: right forearm; ke1 22:36 Drug: Zofran (Ondansetron) 4 mg Route: IVP; Site: right forearm; ke1 22:47 Drug: NS 0.9% 1000 ml Route: IV; Rate: 1 bolus; Site: right forearm; ke1 23:34 Drug: Ketorolac 30 mg Route: IVP; Site: right forearm; ke1 06/05 00:00 Follow up: Response: Pain is unchanged, physician notified ke1 00:03 CANCELLED (Physician Discretion): NS 0.9% 1000 ml IV at 1 bolus Per protocol; 1000 mL cp bolus 00:08 Drug: morphine 4 mg Route: IVP; Infused Over: 4 mins; Site: right forearm; ke1 00:25 Follow up: Pain 2/10 Adult; Response: Pain is decreased ke1 00:08 Drug: Zofran (Ondansetron) 4 mg Route: IVP; Site: right forearm; ke1 00:25 Follow up: Response: Nausea is decreased; Vomiting decreased ke1 01:02 Drug: Dilaudid (HYDROmorphone) 1 mg Route: IVP; Site: right forearm; ke1 01:17 Follow up: Pain 0/10 Adult; Response: Pain is decreased ke1 02:32 Drug: Bentyl (dicyclomine) 20 mg Route: PO; ke1 Medication: 02:28 VIS not applicable for this client. ke1 Outcome: 02:17 Discharge ordered by . cp 02:28 Discharged to home ambulatory. ke1 02:28 Condition: good 02:28 Discharge instructions given to patient. 02:32 Patient left the ED. ke1 Signatures: Dispatcher [employer] EDAR Khoa Ambrose PA PA cp Alexander, Jessica ja2 Ebrottie Kouassi, RN RN ke1 Carter, Мария mm9
--- NOTE | 2022-06-05 02:17 | EDPHYS ---
Physician Documentation [facility] Name: Marcell Whyte Age: 32 yrs Sex: Male : 1990 Arrival Date: 06/04/2022 Time: 21:51 Bed 12 Private MD: ED Physician Rikki Lucio HPI: 06/04 22:15 This 32 yrs old Male presents to ER via Ambulatory with complaints of Possible cp Kidney Stone, Abdominal Pain, Low Back Pain. 22:15 The patient presents with abdominal pain in the epigastric area, in the upper abdomen. cp 22:15 Onset: The symptoms/episode began/occurred 1 hour(s) ago. cp 22:15 The symptoms radiate to mid back. cp 22:15 Associated signs and symptoms: Pertinent positives: nausea, abdominal pain. Patient cp reports history of kidney stones. 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 Historical: - Allergies: 22:12 No Known Allergies; ke1 - PMHx: 22:13 covid; ke1 - Immunization history:: Client reports receiving the 2nd dose of the Covid vaccine. - Social history:: Smoking status: Patient denies any tobacco usage or history of. ROS: 22:20 Constitutional: Negative for body aches, chills, fever, poor PO intake. cp 22:20 Eyes: Negative for injury, pain, redness, and discharge. cp 22:20 ENT: Negative for drainage from ear(s), ear pain, sore throat, difficulty swallowing, difficulty handling secretions. 22:20 Cardiovascular: Negative for chest pain, edema, palpitations. 22:20 Respiratory: Negative for cough, shortness of breath, wheezing. 22:20 Abdomen/GI: Positive for abdominal pain, nausea, Negative for vomiting, diarrhea, constipation. 22:20 Back: Positive for radiated pain, of the mid back area, Negative for injury or acute deformity, decreased range of motion. 22:20 : Negative for urinary symptoms, testicular pain 22:20 Neuro: Negative for altered mental status, headache, weakness. 22:20 All other systems are negative. Exam: 22:25 Constitutional: The patient appears in no acute distress, alert, awake, cp non-diaphoretic, non-toxic, well developed, well nourished. 22:25 Head/Face: Normocephalic, atraumatic. cp 22:25 Eyes: Periorbital structures: appear normal, Conjunctiva: normal, no exudate, no injection, Sclera: no appreciated abnormality, Lids and lashes: appear normal, bilaterally. 22:25 ENT: External ear(s): are unremarkable, Nose: is normal, Mouth: Lips: moist, Oral mucosa: moist, Posterior pharynx: Airway: no evidence of obstruction, patent. 22:25 Chest/axilla: Inspection: normal, Palpation: is normal, no crepitus, no tenderness. 22:25 Cardiovascular: Rate: normal, Rhythm: regular, Edema: is not appreciated, JVD: is not appreciated. 22:25 Respiratory: the patient does not display signs of respiratory distress, Respirations: normal, no use of accessory muscles, no retractions, labored breathing, is not present, Breath sounds: are clear throughout, no decreased breath sounds, no stridor, no wheezing. 22:25 Abdomen/GI: Inspection: abdomen appears normal, Bowel sounds: active, all quadrants, Palpation: soft, in all quadrants, moderate abdominal tenderness, in the upper abdomen below diaphragm bilaterally, rebound tenderness, is not appreciated, involuntary guarding, is not appreciated. 22:25 Back: pain, that is moderate, of the mid back area, ROM is normal, CVA tenderness, is absent. 22:25 Skin: no rash present. 22:25 Neuro: Orientation: to person, place \T\ time. Mentation: is normal, Motor: moves all fours, strength is normal, Sensation: is normal. 23:20 ECG was reviewed by the Attending Physician. cp Vital Signs: 22:09 BP 135 / 91; Pulse 57; Resp 19; Temp 98.5; Pulse Ox 100% on R/A; Weight 117.93 kg; ke1 Height 5 ft. 11 in. (180.34 cm); Pain 7/10; 06/05 00:00 BP 130 / 84; Pulse 56; Resp 19; Pulse Ox 100% on R/A; ke1 00:25 Pain 2/10; ke1 01:17 Pain 0/10; ke1 02:27 BP 116 / 72; Pulse 71; Resp 16; Temp 98.4; Pulse Ox 98% on R/A; Pain 0/10; ke1 1106 22:09 Body Mass Index 36.26 (117.93 kg, 180.34 cm) ke1 MDM: 06/04 22:01 Patient medically screened. 06/05 02:17 Data reviewed: vital signs, nurses notes, lab test result(s), EKG, radiologic studies, cp CT scan, plain films, ultrasound. 02:17 Differential diagnosis: cholecystitis, Cholelithiasis, pancreatitis, Peptic Ulcer cp Disease, Perf. Duodenal Ulcer, Perf. Gastric Ulcer, Pyelonephritis, Ureterolithiasis, urinary tract infection. Test interpretation: by ED physician or midlevel provider: ECG, plain radiologic studies. Counseling: I had a detailed discussion with the patient and/or guardian regarding: the historical points, exam findings, and any diagnostic results supporting the discharge/admit diagnosis, lab results, radiology results, the need for outpatient follow up, for definitive care, a general surgeon, to return to the emergency department if symptoms worsen or persist or if there are any questions or concerns that arise at home. Response to treatment: the patient's symptoms have markedly improved after treatment, and as a result, I will discharge patient. ED course: VSS. Pain and nausea markedly improved with meds. Will discharge to home for continued monitoring. 06/04 22:12 Order name: CBC with Diff; Complete Time: 23:54 06/04 23:54 Interpretation: Normal except: ALIE% 76.7; LYM% 15.1. 06/04 22:12 Order name: CMP; Complete Time: 23:54 06/04 23:54 Interpretation: Normal except: CL 110; BUN 25; GFR 88; ALT 82; GLOB 4.0; A/G 0.9. 06/04 22:12 Order name: Lipase; Complete Time: 23:54 06/04 22:12 Order name: Urine Microscopic Only; Complete Time: 00:03 06/04 22:20 Order name: Troponin High Sensitivity 06/04 22:20 Order name: UDS; Complete Time: 00:00 06/04 22:32 Order name: XRAY Chest (1 view) 06/04 23:29 Order name: Urine Dipstick-Ancillary; Complete Time: 23:54 EDMS 06/05 00:01 Interpretation: Normal except: UPH 8.5; UPROT 1+. 06/04 23:56 Order name: US Abdomen Limited: gallbladder 06/05 00:04 Order name: CT Stone Protocol 06/04 22:12 Order name: IV Saline Lock; Complete Time: 22:36 cp 06/04 22:12 Order name: Labs collected and sent; Complete Time: 22:36 cp 06/04 22:12 Order name: Urine Dipstick-Ancillary (obtain specimen); Complete Time: 23:20 cp 06/04 22:20 Order name: EKG; Complete Time: 22:20 cp 06/04 22:20 Order name: EKG - Nurse/Tech; Complete Time: 23:20 cp 06/04 23:56 Order name: NPO; Complete Time: 00:01 cp 06/05 01:40 Order name: PO challenge; Complete Time: 02:13 cp EC/06 23:20 Rate is 50 beats/min. Rhythm is regular. OK interval is normal. QRS interval is normal. cp QT interval is normal. T waves are Inverted in leads aVR, V2, V3. Interpreted by me. Reviewed by me. Administered Medications: 22:36 Drug: Pepcid (famotidine) 20 mg Route: IVP; Site: right forearm; ke1 22:36 Drug: Zofran (Ondansetron) 4 mg Route: IVP; Site: right forearm; ke1 22:47 Drug: NS 0.9% 1000 ml Route: IV; Rate: 1 bolus; Site: right forearm; ke1 23:34 Drug: Ketorolac 30 mg Route: IVP; Site: right forearm; ke1 06/05 00:00 Follow up: Response: Pain is unchanged, physician notified ke1 00:03 CANCELLED (Physician Discretion): NS 0.9% 1000 ml IV at 1 bolus Per protocol; 1000 mL cp bolus 00:08 Drug: morphine 4 mg Route: IVP; Infused Over: 4 mins; Site: right forearm; ke1 00:25 Follow up: Pain 2/10 Adult; Response: Pain is decreased ke1 00:08 Drug: Zofran (Ondansetron) 4 mg Route: IVP; Site: right forearm; ke1 00:25 Follow up: Response: Nausea is decreased; Vomiting decreased ke1 01:02 Drug: Dilaudid (HYDROmorphone) 1 mg Route: IVP; Site: right forearm; ke1 01:17 Follow up: Pain 0/10 Adult; Response: Pain is decreased ke1 02:32 Drug: Bentyl (dicyclomine) 20 mg Route: PO; ke1 Disposition Summary: 06/05/22 02:17 Discharge Ordered Location: Home cp Problem: new cp Symptoms: have improved cp Condition: Stable cp Diagnosis - Other cholelithiasis without obstruction cp Followup: cp - With: Kole Machado MD - When: 1 - 2 days - Reason: Recheck today's complaints Discharge Instructions: - Discharge Summary Sheet cp - Cholelithiasis cp Forms: - Medication Reconciliation Form cp - Thank You Letter cp - Antibiotic Education cp - Prescription Opioid Use cp Prescriptions: - Zofran 4 mg Oral Tablet - take 1 tablet by ORAL route every 12 hours As needed; 20 tablet; Refills: 0, cp Product Selection Permitted - dicyclomine 20 mg Oral Tablet - take 1 tablet by ORAL route 4 times per day; 30 tablet; Refills: 0, Product cp Selection Permitted Signatures: Dispatcher [employer] EDMS Khoa Ambrose PA PA cp Ebrottie, Kouassi RN RN ke1 Corrections: (The following items were deleted from the chart) 06/04 23:54 23:54 Normal except: CL 110; BUN 25; GFR 88; ALT 82. cp cp 06/05 00:03 00:03 NS 0.9% 1000 ml IV at 1 bolus Per protocol; 1000 mL bolus ordered. cp cp
[2022-06-05] MEDS ORDERED: DICYCLOMINE HCL 10 MG CAP ONE (02:26)
[2022-06-05 03:30] VITALS: BP 116/72; TEMP 98.4; O2SAT 98
--- NOTE | 2022-06-05 10:57 | RAD REPORT ---
EXAM DESCRIPTION: RAD - Chest Single View - 06/04/2022 11:09 pm CLINICAL HISTORY: The patient is 32 years old and is Male; CHEST PAIN TECHNIQUE: Frontal view of the chest. COMPARISON: No relevant prior studies available. FINDINGS: Lungs: Mildly prominent interstitial markings. No consolidation. Pleural space: Unremarkable. No pneumothorax. Heart: Unremarkable. Mediastinum: Unremarkable. Bones/joints: Unremarkable. IMPRESSION: Mildly prominent interstitial markings. No consolidation. Electronically signed by: Ermias Jackson MD 06/04/2022 11:29 PM HEAVY MACHINERY ASSEMBLER Due to temporary technical issues with the PACS/Fluency reporting system, reports are being signed by the in house radiologists without review as a courtesy to insure prompt reporting. The interpreting radiologist is fully responsible for the content of the report.
--- NOTE | 2022-06-05 11:00 | RAD REPORT ---
EXAM DESCRIPTION: US - Abdomen Exam Limited - 06/05/2022 12:39 am CLINICAL HISTORY: Upper abdomen pain TECHNIQUE: Real-time ultrasound of the right upper quadrant with image documentation. COMPARISON: No relevant prior studies available. FINDINGS: Gallbladder: Multiple gallstones. Minimal gallbladder wall thickening. No pericholec ystic fluid. reliability technologist noted a sonographic negative Santoyo's sign. Common bile duct: Unremarkable as visualized. No stones. No dilation. IMPRESSION: Cholelithiasis. Minimal nonspecific gallbladder wall thickening. Ultrasound technolo gist noted a sonographic negative Santoyo's sign. Electronically signed by: Georgina Payne MD 06/05/2022 1:23 AM STARTING SHEET TANK OPERATOR Due to temporary technical issues with the PACS/Fluency reporting system, reports are being signed by the in house radiologists without review as a courtesy to insure prompt reporting. The interpreting radiologist is fully responsible for the content of the report.
--- NOTE | 2022-06-05 12:01 | RAD REPORT ---
EXAM DESCRIPTION: CT - Stone Protocol - 06/05/2022 12:51 am CLINICAL HISTORY: The patient is 32 years old and is Male; upper abdomen/back pain TECHNIQUE: Axial computed tomography images of the abdomen and pelvis without intravenous contrast. Sagittal and coronal reformatted images were created and reviewed. This CT exam was performed usi ng one or more of the following dose reduction techniques: automated exposure control, adjustment o f the mA and/or kV according to patient size, and/or use of iterative reconstruction technique. COMPARISON: No relevant prior studies available. FINDINGS: Lung bases: Unremarkable. No mass. No consolidation. ABDOMEN: Liver: Unremarkable. Gallbladder and bile ducts: Unremarkable. No calcified stones. No ductal dilation. Pancreas: Unremarkable. No ductal dilation. Spleen: Unremarkable. No splenomegaly. Adrenals: Unremarkable. No mass. Kidneys and ureters: Unremarkable. No obstructing stones. No hydronephrosis. Stomach and bowel: Unremarkable. No obstruction. No mucosal thickening. PELVIS: Appendix: No findings to suggest acute appendicitis. Bladder: Unremarkable. Reproductive: Unremarkable as visualized. ABDOMEN and PELVIS: Intraperitoneal space: Unremarkable. No free air. No significant fluid collection. Bones/joints: No acute fracture. No dislocation. Soft tissues: Unremarkable. Vasculature: Unremarkable. No abdominal aortic aneurysm. Lymph nodes: Unremarkable. No enlarged lymph nodes. IMPRESSION: No acute finding in the abdomen/pelvis. Electronically signed by: Ermias Jackson MD 06/05/2022 1:21 AM DIRECTOR FRANCHISE SALES Due to temporary technical issues with the PACS/Fluency reporting system, reports are being signed by the in house radiologists without review as a courtesy to insure prompt reporting. The interpreting radiologist is fully responsible for the content of the report.
--- NOTE | 2022-06-05 12:11 | EKG ---
Test Date: 2022-06-04 Test Time: 23:15:30 Skein Straightener: MATIAS MEASUREMENT RESULTS: Intervals: Rate: 50 NH: 150 QRSD: 98 QT: 464 QTc: 423 [place]: P: 51 NH: 150 QRS: 70 T: 41 INTERPRETIVE STATEMENTS: Sinus bradycardia Incomplete right bundle branch block Borderline ECG Compared to ECG 08/06/2017 07:35:56 Incomplete right bundle-branch block now present Electronically Signed On 06-05-22 12:10:26 AQUATICS COORDINATOR by Khurram Bocanegra
== END 2022-06-05 02:32 | disposition home or self-care (01) ==
LOC: ER 21:45
DX: K80.80 Other cholelithiasis without obstruction (principal)
CPT/HCPCS: 36415; 71045; 74176; 76377; 76705; 80053; 80307; 81003; 81015; 83690; 84484; 85025; 93005; 96374; 96375; 99284; J1170; J2405; J7030

== ENCOUNTER 2024-07-08 17:31 | Inpatient (IN) | payer OTHER, SELFPAY ==
--- OUTSIDE RECORDS SUMMARY | 2024-07-08 17:34 | XMS REPORT | Continuity of Care Document ---
Author Name Unknown Address [address] [facility] [facility] [address] [place] [address] [facility] thconnect Address [address] [place] [address] Care Team Providers Care Air Hammer Stripper Name Role Phone Napoleon Rodríguez Primary Care Physician [phone] Kasey Pablo RN Attending Clinician [phone] ORI ADKINS Attending Clinician Unavail able Raghu Montano DO Attending Clinician [phone] Nathalie Perez DO Attending Clinician Adam Francis DO Attending Clinician [phone] Ori Adkins MD Attending Clinician HEIDI MEIER Attending Clinician Unavailable Heidi Meier MD Attending Clinician [phone] Doctor Unassigned, [place] Attending Clinician U navailable JOÃO RODRIGUEZ Attending Clinician Unavailable JOÃO RODRIGUEZ Attending Clinician Unavailable JULIANA CONDE Attending Clinician Unavailable Lab, Adc Fam Pob I Attending Clinician Unavailab Juliana Webb Attending Clinician [phone] ADAM FRANCIS Admitting Clinician Unavailable Adam Francis DO Admitting Clinician HEIDI MEIER Admitting Clinician Unavailable Payers Payer Name Policy Type Policy Number Effective Date Expirati on Date Source [facility] [id number] 2022 00:00:00 Problems Condition Name Condition Details Condition Category Status Onset Date Resolution Date Last Treatment Date Treating Clinician Comments Source Leukocytos is, unspecifie d type Leukocytos is, unspecifie d type Disease Active 2023-07 00:00: 00 [facility] Pneumonia of both lungs due to infectious organism, unspecifie d part of lung Pneumonia of both lungs due to infectious organism, unspecifie d part of lung Disease Active 2023-07 00:00: 00 [facility] Influenza A Influenza A Disease Active 2023-07 00:00: 00 [facility] Fever in adult Fever in adult Disease Active 2023-07 00:00: 00 [facility] Sinus bradycardi a Sinus bradycardi a Disease Active 2022-07 00:00: 00 [facility] Obesity (BMI 30-39.9) Obesity (BMI 30-39.9) Disease Active 2022-07 00:00: 00 [facility] Dizziness and giddiness Dizziness and giddiness Disease Active 2022-07 00:00: 00 [facility] Allergies, Adverse Reactions, Alerts Allergy Name Allergy Type Status Severity Reaction(s) Onset Date Inactive Date Treating Clinician Comments Source NO KNOWN ALLERGIE S Drug Class Active [facility] Social History Social Habit Start Date Stop Date Quantity Comments Source Gender identity [facility] Sexual orientation U [facility] Alcoholic beverage intake 2024-07-05 00:00:00 2024-07-05 00:00:00 Current drinker of alcohol (finding) [facility] Alcohol intake 2023-05-18 00:00:00 2023-05-18 00:00:00 Current drinker of alcohol (finding) [facility] History of Social function 2023-05-18 00:00:00 2023-05-18 00:00:00 [facility] Tobacco use and exposure 2023-03-05 00:00:00 2023-03-05 00:00:00 Smokeless tobacco non-user [facility] Sex assigned at 1990 00:00:00 1990 00:00:00 [facility] Smoking Status Start Date Stop Date Source Tobacco smoking consumption unknown [facility] Never smoked tobacco [facility] Medications Ordered Medication Name Filled Medication Name Start Date Stop Date Current Medication? Ordering Clinician Indication Dosage Frequency Signature (SIG) Comments Components Source albuterol (VENTOLIN) inhaler 1 Puff 2023-07 15:45: 00 Yes 1{puff} 1 Puff, Inhalation , BID, First dose on 07/06/24 at 0945, Until Discontinu ed, Routine [facility] oseltamivir (TAMIFLU) capsule 75 mg 2023-07 14:00: 00 07-11 01:59 :00 Yes 75mg 75 mg, Oral, BID, 9 doses, First dose on 07/06/24 at 0800, Last dose on Anay 07/10/24 at 0800, Routine [facility] lactated ringers IV infusion 1,000 mL 2023-07 04:30: 00 07-06 16:29 :00 Yes 1000mL [Order 1 Start] Name: lactated ringers IV infusion 1,000 mL Signed Summary: at 999 mL/hr, 1,000 mL, Intravenou s, ONCE, 1 dose, On 07/05/24 at 2230, Routine [Order 1 End] [Order 2 Start] Name: lactated ringers IV infusion 1,000 mL Signed Summary: at 200 mL/hr, 1,000 mL, Intravenou s, CONTINUOUS , Starting on 07/05/24 at 2230, Until 07/06/24 at 0729, Routine [Order 2 End] [facility] ibuprofen (IBU) tablet 400 mg 2023-07 02:19: 19 07-06 23:16 :49 No 400mg 400 mg, Oral, Q6HPRN, Starting on 07/05/24 at 2019, Until 07/06/24 at 1716, Routine, PRN Myalgias [facility] ondansetron (ZOFRAN-ODT ) disintegrat ing tablet 4 mg 2023-07 02:18: 10 07-06 23:16 :49 No 4mg 4 mg, Oral, Q8HPRN, Starting on 07/05/24 at 2018, Until 07/06/24 at 1716, Routine, Nausea and Vomiting (N/V) [facility] benzonatate (TESSALON PERLES) capsule 100 mg 2023-07 02:17: 59 07-06 23:16 :49 No 100mg 100 mg, Oral, Q8HPRN, Starting on 07/05/24 at 2017, Until 07/06/24 at 1716, Routine, Cough [facility] acetaminoph en (TYLENOL) tablet 650 mg 2023-07 02:00: 43 07-06 23:16 :49 No 650mg 650 mg, Oral, Q6HPRN, Starting on 07/05/24 at 2000, Until 07/06/24 at 1716, Routine, Pain (scale 1-3), Temp > 38 C [facility] oseltamivir (TAMIFLU) capsule 75 mg 2023-07 01:15: 00 07-06 00:50 :00 No 75mg 75 mg, Oral, ONCE, 1 dose, On 07/05/24 at 1915, Routine [facility] ketorolac (TORADOL) injection 15 mg 2023-07 00:30: 00 07-05 23:41 :00 No 15mg 15 mg, Slow IV Push, ONCE, 1 dose, On 07/05/24 at 1830, Routine [facility] albuterol 90 mcg/actuati on inhaler 2023-07 00:00: 00 Yes [id number] 1{puff} Inhale 1 Puff in the morning and 1 Puff in the evening. [facility] oseltamivir 75 mg capsule 2023-07 00:00: 00 Yes [id number] 75mg Take 1 capsule by mouth in the morning and 1 capsule in the evening. [facility] ipratropium -albuteroL (DUONEB) 0.5 mg-3 mg(2.5 mg base)/3 mL nebulizer solution 3 mL 2023-07 00:00: 00 07-06 00:35 :00 No 3mL 3 mL, Inhalation , ONCE, 1 dose, On 07/05/24 at 1800, ANGELINA [facility] cefTRIAXone (ROCEPHIN) 1,000 mg in water for injection, sterile 10 mL IV Push 2023-07 23:45: 00 07-05 23:41 :00 No 1000mg 1,000 mg, Intravenou s, ONCE, 1 dose, On 07/05/24 at 1745, 10 mL, Reason for Anti-Infec tive: Empiric Therapy for Suspected Infection, Empiric Therapy Site: Respirator y, Duration of therapy: Once (ED) [facility] azithromyci n (ZITHROMAX) tablet 500 mg 2023-07 23:15: 00 07-05 23:41 :00 No 500mg 500 mg, Oral, ONCE, 1 dose, On 07/05/24 at 1715, ANGELINA, Reason for Anti-Infec tive: Documented Infection, Documented Infection Site: Respirator y, Duration of Therapy: Once (ED) [facility] NaCl 0.9% (NS) bolus infusion 1,000 mL 2023-07 22:30: 00 07-06 00:22 :00 No 1000mL at 999 mL/hr, 1,000 mL, IV Infusion, ONCE, 1 dose, On 07/05/24 at 1630, ANGELINA [facility] acetaminoph en (TYLENOL EXTRA STRENGTH) 500 mg tablet 2023-07 21:51: 05 Yes 500mg Take 1 tablet by mouth every 6 (six) hours as needed for Pain. [facility] ibuprofen (IBU) tablet 600 mg 2023-07 21:30: 00 07-05 22:54 :00 No 600mg 600 mg, Oral, ONCE, 1 dose, On 07/05/24 at 1530, ANGELINA [facility] sulfur hexafluorid e microsphr (LUMASON) injection 5 mL 03-15 19:25: 00 03-15 19:25 :00 No [id number] 5mL 5 mL, Intravenou s, ONCE, 1 dose, On Anay 03/15/23 at 1445, Routine
manufacturing team member approving Restricted medication : HEIDI MEIER [facility] ibuprofen 800 mg tablet 12-12 00:00: 00 07-05 00:00 :00 No 800mg Take 1 tablet by mouth every 8 (eight) hours as needed (PAIN). [facility] ondansetron (ZOFRAN, HYDROCHLORI DE,) 4 mg tablet 12-12 00:00: 00 07-05 00:00 :00 No 4mg Take 1 tablet by mouth every 8 (eight) hours as needed for Nausea and Vomiting (N/V). [facility] Vital Signs Vital Name Observation Time Observation Value Comments S ource Systolic blood pressure 2024-07-06 17:23:00 114 mm[Hg] [facility] Diastolic blood pressure 2024-07-06 17:23:00 68 mm[Hg] [facility] Heart rate 2024-07-06 17:23:00 75 /min [facility] Body temperature 2024-07-06 17:23:00 37.22 Lisset [facility] Respiratory rate 2024-07-06 17:23:00 16 /min [facility] Oxygen saturation in Arterial blood by Pulse oximetry 2024-07-06 17:23:00 90 /min [facility] Body height 2024-07-06 04:07:00 180.3 cm [facility] Body weight 2024-07-06 04:07:00 129.275 kg [facility] BMI 2024-07-06 04:07:00 39.75 kg/m2 [facility] Systolic blood pressure 2024-07-06 03:00:00 130 mm[Hg] [facility] Diastolic blood pressure 2024-07-06 03:00:00 80 mm[Hg] [facility] Heart rate 2024-07-06 03:00:00 87 /min [facility] Respiratory rate 2024-07-06 03:00:00 20 /min [facility] Oxygen saturation in Arterial blood by Pulse oximetry 2024-07-06 03:00:00 92 /min [facility] Body temperature 2024-07-06 02:22:00 37 Lisset [facility] Body height 2024-07-05 20:32:00 180.3 cm [facility] Body weight 2024-07-05 20:32:00 129.275 kg [facility] BMI 2024-07-05 20:32:00 39.75 kg/m2 [facility] Systolic blood pressure 2023-05-18 19:24:00 114 mm[Hg] [facility] Diastolic blood pressure 2023-05-18 19:24:00 75 mm[Hg] [facility] Heart rate 2023-05-18 19:24:00 74 /min [facility] Respiratory rate 2023-05-18 19:24:00 18 /min [facility] Body height 2023-05-18 19:24:00 182.9 cm [facility] Body weight 2023-05-18 19:24:00 111.902 kg [facility] BMI 2023-05-18 19:24:00 33.46 kg/m2 [facility] Oxygen saturation in Arterial blood by Pulse oximetry 2023-05-18 19:24:00 95 /min [facility] Systolic blood pressure 2023-04-12 17:02:00 110 mm[Hg] [facility] Diastolic blood pressure 2023-04-12 17:02:00 73 mm[Hg] [facility] Heart rate 2023-04-12 17:02:00 54 /min [facility] Respiratory rate 2023-04-12 17:02:00 20 /min [facility] Body height 2023-04-12 17:02:00 182.9 cm [facility] Body weight 2023-04-12 17:02:00 107.956 kg [facility] BMI 2023-04-12 17:02:00 32.28 kg/m2 [facility] Oxygen saturation in Arterial blood by Pulse oximetry 2023-04-12 17:02:00 99 /min [facility] Systolic blood pressure 2023-03-05 14:01:00 115 mm[Hg] [facility] Diastolic blood pressure 2023-03-05 14:01:00 75 mm[Hg] [facility] Heart rate 2023-03-05 14:01:00 61 /min [facility] Body height 2023-03-05 14:01:00 182.9 cm [facility] Body weight 2023-03-05 14:01:00 108.228 kg [facility] BMI 2023-03-05 14:01:00 32.36 kg/m2 [facility] Oxygen saturation in Arterial blood by Pulse oximetry 2023-03-05 14:01:00 94 /min [facility] Procedures Procedure Date / Time Performed Performing Clinician Source MAGNESIUM 2024-07-06 09:31:00 Chepe Hussein [facility] BASIC METABOLIC PANEL (NA, K, CL, CO2, GLUCOSE, BUN, CREATININE, CA) 2024-07-06 09:31:00 John Hussein [facility] CBC WITH DIFF 2024-07-06 09:31:00 Chepe Hussein [facility] HIV 1/2 AG-AB WITH REFLEX 2024-07-06 09:31:00 Jaron Mata [facility] AMYLASE 2024-07-05 22:25:00 [facility] 2024-07-05 22:25:00 Rikki Choi Un [facility] COMP. METABOLIC PANEL (06056) 2024-07-05 22:25:00 Rikki Choi [facility] CBC WITH DIFF 2024-07-05 22:25:00 Rikki Choi [facility] INFLUENZA A/B RSV COVID NAAT 2024-07-05 22:25:00 Raghu Montano [facility] GLYCOSYLATED HEMOGLOBIN (A1C) 2024-07-05 22:25:00 John Hussein [facility] MEDICAL RELEASE/CLEARANCE FORMS 2023-05-18 05:01:00 Doctor Unassigned, [place] [facility] AUTHORIZATION FOR RELEASE OF PHI 2023-04-20 05:01:00 Doctor Unassigned, [place] [facility] AUTHORIZATION FOR RELEASE OF PHI 2023-03-19 05:01:00 Doctor Unassigned, [place] [facility] TRANSTHORACIC ECHO (TTE) COMPLETE W/ CONTRAST 2023-03-15 19:35:27 Heidi Meier [facility] HB ECG ROUTINE & RHYTHM STRIP 2023-03-05 13:59:20 Heidi Meier [facility] ASSIGNMENT OF BENEFITS 2023-03-05 13:43:07 Docto r Unassigned, [place] [facility] Encounters Start Date/Time End Date/Time Encounter Type Admission Type Attending Clinicians Care Facility Care Department Encounter ID Source 2024-07-08 00:00:00 2024-07-08 10:18:53 Transition of Care Kasey Pablo Marisa [facility] 1..840.114 350.1.13.10 4.2.7.2.686 [id number] [facility] 2024-07-05 15:16:00 2024-07-06 17:16:00 Outpatient ORI JIMENES [facility] [id number] [facility] 2024-07-05 15:16:00 2024-07-06 17:16:00 Emergency Raghu Montano [place], Adam Clarke Nadia Shahbaz [facility] 1..840.114 350.1.13.10 4.2.7.2.686 [id number] [facility] 2023-06-11 13:20:00 2023-06-11 13:20:00 [facility] [id number] [facility] 2023-05-22 00:00:00 2023-05-22 00:00:00 Telephone [facility] BUILDING 1.2.840.114 350.1.13.10 4.2.7.2.686 [id number] [facility] 2023-05-18 14:20:00 2023-05-18 14:40:00 Office Visit [facility] 1.2.840.114 350.1.13.10 4.2.7.2.686 [id number] [facility] 2023-05-18 14:20:00 2023-05-18 14:20:00 [facility] [id number] [facility] 2023-05-18 00:00:00 2023-05-18 00:00:00 Orders Only Doctor Unassigned, [place] [facility] 1.2840.114 350.1.13.10 4.2.7.2.686 [id number] [facility] 2023-04-20 00:00:00 2023-04-20 00:00:00 Telephone [facility] 1.2.840.114 350.1.13.10 4.2.7.2.686 [id number] [facility] 2023-04-20 00:00:00 2023-04-20 00:00:00 Orders Only Doctor Unassigned, [place] [facility] 1.2.840.114 350.1.13.10 4.2.7.2.686 [id number] [facility] 2023-04-16 00:00:00 2023-04-16 00:00:00 [facility] 1.2.840.114 350.1.13.10 4.2.7.2.686 [id number] [facility] 2023-04-13 00:00:00 2023-04-13 00:00:00 Patient Secure Msg Hardeep [facility] BUILDING 1.2.840.114 350.1.13.10 4.2.7.2.686 [id number] [facility] 2023-04-12 11:00:00 2023-04-12 23:59:00 Outpatient [facility] [id number] [facility] 2023-04-12 11:00:00 2023-04-12 23:59:00 Hospital Encounter [facility] BUILDING 1.2.840.114 350.1.13.10 4.2.7.2.686 [id number] [facility] 2023-04-03 11:00:00 2023-04-03 11:00:00 [facility] [id number] [facility] 2023-03-30 00:00:00 2023-03-30 00:00:00 Telephone [facility]ep [facility] BUILDING 1.2.840.114 350.1.13.10 4.2.7.2.686 [id number] [facility] 2023-03-23 00:00:00 2023-03-23 00:00:00 Telephone [facility] 1.2.840.114 350.1.13.10 4.2.7.2.686 [id number] [facility] 2023-03-19 00:00:00 2023-03-19 00:00:00 Orders Only Doctor Unassigned, [place] [facility] 1.2.840.114 350.1.13.10 4.2.7.2.686 [id number] [facility] 2023-03-16 00:00:00 2023-03-16 00:00:00 [facility] 1.2.840.114 350.1.13.10 4.2.7.2.686 [id number] [facility] 2023-03-15 13:49:13 2023-03-15 23:59:00 Hospital Encounter [facility] BUILDING 1.2.840.114 350.1.13.10 4.2.7.2.686 [id number] [facility] 2023-03-15 13:47:49 2023-03-15 13:48:00 [facility] [id number] [facility] 2023-03-15 13:47:49 2023-03-15 13:48:00 [facility] 1.2.840.114 350.1.13.10 4.2.7.2.686 [id number] [facility] 2023-03-05 09:00:00 2023-03-05 09:26:27 Outpatient [facility] [id number] [facility] 2023-03-05 09:00:00 2023-03-05 09:26:27 [facility] 1.2.840.114 350.1.13.10 4.2.7.2.686 [id number] [facility] 2023-03-05 00:00:00 2023-03-05 00:00:00 Orders Only Doctor Unassigned, [place] [facility] 1.840.114 350.1.13.10 4.2.7.2.686 [id number] [facility] 2020-02-19 13:20:00 2020-02-19 13:20:00 Outpatient R JULIANA CONDE [facility] [id number] [facility] 2020-02-19 12:59:56 2020-02-19 13:19:56 Laboratory Only Lab, [facility] [address] 1.840.114 350.1.13.10 4.2.7.2.686 [id number] 2020-02-19 12:59:56 2020-02-19 13:19:56 Laboratory Only Lab, [facility] 1.840.114 350.1.13.10 4.2.7.2.686 [id number] [facility] Results Test Description Test Time Test Comments Results Result Co mments Source [facility] WITH [id number] 23:37:46* Test Item Value Reference Range Interpretation Comme nts WBC (test code = 6690-2) 28.37 4.20-10.70 H RBC (test code = 789-8) 4.52 4.26-5.52 HGB (test code = 718-7) 14.0 g/dL 12.2-16.4 HCT (test code = 4544-3) 41.9 % 38.4-49.3 MCV (test code = 787-2) 92.7 fL 81.7-95.6 MCH (test code = 785-6) 31.0 pg 26.1-32.7 MCHC (test code = 786-4) 33.4 g/dL 31.2-35.0 RDW-SD (test code = 63083-0) 46.4 fL 38.5-51.6 RDW-CV (test code = 788-0) 13.5 % 12.1-15.4 PLT (test code = 777-3) 450 150-328 H MPV (test code = 78017-6) 10.4 fL 9.8-13.0 NRBC/100 WBC (test code = 8235348694) 0.0 0.0-10.0 NRBC x10^3 (test code = 8085145758) See_Comment [Automated message] The system which generated this result transmitted reference range: 10*3/?L. The reference range was not used to interpret this result as normal/abnormal. GRAN MAT (NEUT) % (test code = 770-8) 41.5 % IMM GRAN % (test code = 8738278879) 0.40 % LYMPH % (test code = 736-9) 5.0 % MONO % (test code = 5905-5) 5.0 % EOS % (test code = 713-8) 47.6 % BASO % (test code = 706-2) 0.5 % GRAN MAT x10^3(ANC) (test code = 2243914338) 11.82 10*3/uL 1.99-6.95 H IMM GRAN x10^3 (test code = 4054147793) 0.11 10*3/uL 0.00-0.06 H LYMPH x10^3 (test code = 731-0) 1.41 10*3/uL 1.09-3.23 MONO x10^3 (test code = 742-7) 1.41 10*3/uL 0.36-1.02 H EOS x10^3 (test code = 711-2) 13.49 10*3/uL 0.06-0.53 H BASO x10^3 (test code = 704-7) 0.13 10*3/uL 0.01-0.09 H BANDS (test code = 6356564042) Increased A Lab Interpretation (test code = 07463-0) Abnormal [facility]. METABOLIC PANEL (15506)2024-07-05 23:02:32* Test Item Value Reference Range Interpretation Comme nts NA (test code = 5227801988) 137 mmol/L 135-145 K (test code = 0861824380) 4.6 mmol/L 3.5-5.0 CL (test code = 6864163093) 106 mmol/L 98-108 CO2 TOTAL (test code = 6977401405) 24 mmol/L 23-31 AGAP (test code = 3004101939) 7 2-16 BUN (test code = 0348844194) 10 mg/dL 7-23 GLUCOSE (test code = 2094726309) 109 mg/dL 70-110 CREATININE (test code = 2160-0) 1.13 mg/dL 0.60-1.25 TOTAL BILI (test code = 9758278959) 0.7 mg/dL 0.1-1.1 CALCIUM (test code = 0277145059) 8.7 mg/dL 8.6-10.6 T PROTEIN (test code = 3416432388) 8.6 g/dL 6.3-8.2 H ALBUMIN (test code = 5807346090) 4.2 g/dL 3.5-5.0 ALK PHOS (test code = 0436956820) 68 U/L 34-122 ALTv (test code = 1742-6) 41 U/L 5-50 AST(SGOT) (test code = 6676712971) 31 U/L 13-40 eGFR (test code = 17766-8) 88.0 mL/min/1.73m2 CKD-EPI eGFR (2020). Assuming creatinine has been stable day-to-day for at least three months, the eGFR indicates Category G2 (60 - 89 mL/min/1.73 m2) Lab Interpretation (test code = 34104-5) [facility] 23:02:32* Test Item Value Reference Range Interpretation Comme nts JOSTIN (test code = 4643870844) 37 U/L 35-110 Lab Interpretation (test cod e = 15932-8) Normal [facility] 23:02:32* Test Item Value Reference Range Interpretation Comme nts LIPASE (test code = 7581840599) 25 U/L 0-220 Lab Interpretation (test cod e = 06415-7) Normal [facility] (TTE)2023-03-16 00:40:16* Test Item Value Reference Range Interpretation Comme nts Height (test code = 7358219824) 72 in Weight (test code = 6809058926) 238 lbs Systolic BP (test code = 3534395858) 109 mmHg Diastolic BP (test code = 6910218626) 71 mmHg Heart Rate (test code = 9264658641) 45 bpm BSA (test code = 2065972959) 2.29 m2 LVOT diameter (test code = 5348895664) 2.02 cm LVOT area (test code = 5969740741) 3.20 cm2 Ao root diam (test code = 3062840624) 2.45 cm Aortic root (test code = 4068743689) 2.45 cm Ao root annulus (test code = 0198333860) 2.45 cm PV PEAK VELOCITY (test code = 0079143538) 95.4 cm/s PV peak gradient (test code = 6498901532) 3.6 mmHg LAV(MOD-sp4) (test code = 5182345098) 43.00 mL MV E-F slope (test code = 4023958232) 44.20 cm/s MV Peak E Randy (test code = 8528723731) 90.1 cm/s MV Peak A Randy (test code = 2616911366) 52.9 cm/s E/A ratio (test code = 3473963306) 1.70 ratio MV valve area p 1/2 method (test code = 3171997938) 2.60 cm2 MV dec slope (test code = 3285016702) 312.60 cm/s2 MV P1/2t max randy (test code = 0318311913) 90.70 cm/s MR max PG (test code = 0448428748) 19.30 mm[Hg] MR max randy (test code = 6466301876) 219.80 cm/s Mr max randy (test code = 7905948567) 219.8 m/s LVOT stroke volume (test code = 1343587451) 77.60 cm3 LVOT peak randy (test code = 1225948601) 101.1 cm/s LVOT mn grad (test code = 1834290864) 1.7 mmHg AV LVOT peak gradient (test code = 6205994306) 4.1 mmHg LVOT peak VTI (test code = 5301434853) 24.2 cm LV V1 mean (test code = 4325747342) 59.50 cm/s Aortic valve mean velocity (test code = 6562616052) 83.2 cm/s Ao peak randy (test code = 7451459087) 136.4 cm/s Ao VTI (test code = 8343746374) 34.3 cm AV area by cont VTI (test code = 7920446162) 2.3 cm2 AV area peak randy (test code = 0489124276) 2.4 cm2 Ao max PG (test code = 1981750142) 7.40 mm[Hg] AV peak gradient (test code = 2002496683) 7.4 mmHg AV valve area (test code = 5497398682) 2.26 cm2 AV mean gradient (test code = 4472822822) 3.2 mmHg TR Peak Randy (test code = 9877208217) 253.5 cm/s Triscuspid Valve Regurgitation Peak Gradient (test code = 8077373068) 25.7 mmHg LA Volume Index (BP) (test code = 4286524081) 20.1 mL/m2 LA volume (BP) (test code = 4932771180) 46.1 mL LAV(MOD-sp2) (test code = 1497534566) 44.50 mL LVIDD (test code = 8623559489) 5.00 cm Left Ventricular End Diastolic Volume by Teichholz Method (test code = 9747293) 115.5 mL IVS (test code = 1733001431) 0.94 cm Interventricular Septum Diastolic Thickness by 2D (test code = 0752629) 0.94 cm LVPWD (test code = 2923702993) 0.91 cm PW (test code = 7047916322) 0.91 cm 0.6-1.1 EF(Teich) (test code = 8066638604) 51.50 % LVIDS (test code = 2641715013) 3.60 cm Left Ventricular End Systolic Volume by Teichholz Method (test code = 0663291) 56.0 mL FS (test code = 6540604667) 26 % EF - 2D (test code = 73135715) 51.50 % Radiology Study observation (narrative) (test code = 54891-0) KAYLEE (test code = KAYLEE) ?Left?Ventricle: Left ventricle size is normal. Normal wall thickness. Normal wall motion. Normal systolic function with a visually estimated EF of 55 - 60%. Normal diastolic function. ?Right?Ventricle: Right ventricle size is normal. Normal systolic function. ?Left?Atrium: Left atrium size is normal. PFO present viewable by saline contrast. ?Tricuspid?Valve: Mild transvalvular regurgitation. Right ventricular systolic pressure is normal. ?RA pressure is 0-5 mmHg. Left VentricleLeft ventricle size is normal. Normal wall thickness. Normal wall motion. Normal systolic function with a visually estimated EF of 55 - 60%. Normal diastolic function.Right VentricleRight ventricle size is normal. Normal systolic function.Left AtriumLeft atrium size is normal. PFO present viewable by saline contrast.Right AtriumRight atrium size is normal.IVC/SVCIVC diameter is less than or equal to 21 mm and decreases greater than 50% during inspiration; therefore the estimated right atrial pressure is normal (~0-5 mmHg).Mitral ValveMitral valve structure is normal. Trace transvalvular regurgitation.Tricusp id ValveTricuspid valve structure is normal. Mild transvalvular regurgitation. Right ventricular systolic pressure is normal. RA pressure is 0-5 mmHg.Aortic ValveAortic valve structure is normal.Pulmonic ValveNot well visualized. Mild transvalvular regurgitation.Ascendi ng AortaNormal sized aorta.PericardiumThe pericardium is normal. No pericardial effusion.Study DetailsStudy quality was adequate. A complete echocardiogram was performed using 2D, color flow Doppler and spectral Doppler. 5 mL of Lumason ultrasound enhancing agent used and saline contrast was performed. [facility] History and Physical Notes Date/Time Note Provider Source 2024-07-05 20:03:43 MEDICINE [facility] ADMIT H&P PCP: Napoleon Rodríguez (Inactive) Date of Service: 07/05/2024 CHIEF COMPLAINT: Fever, body aches HISTORY OF PRESENT ILLNESS Annia Orellana is a 34 year old male with a PMH of arthritis who presents with fever, body aches. Patient reports he was visiting his mom who is hospitalized here for Flu. Symptoms started 2 days ago. Reports cough, fever, nausea + vomiting. Denies SOB, hematemesis. Denies pain other than his hip and knees which is chronic due to arthritis. Feels lightheaded even at rest. Earlier he reports he had some chest pain that improved after throwing up. Chest pain was on top but stayed put. Reproducible with palpation. Does not smoke cigarettes, drinks infrequently, and does not use recreational drugs. In the ED vitals were temp 38.4 C, HR 114, BP 123/79, RR 20, O2 sat 93% on RA while ambulating but was placed on 3L NC anyways. Labs significant for WBC 28.37, LFTs WNL, Flu A positive. Imaging consisted of CXR c/f BL lower lung opacification. Medications administered in ED: Azithromycin, rocephin, ibuprofen, duonebs, toradol, tamiflu, 1L NS. CHART REVIEW: pertinent information as below: Reviewed PAST MEDICAL HISTORY Past Medical History: Diagnosis Date Unspecified osteoarthritis, unspecified site History reviewed. No pertinent surgical history. Family History Problem Relation Age of Onset Hypertension Mother ALLERGIES No Known Allergies MEDICATIONS No current facility-administered medications on file prior to encounter. Current Outpatient Medications on File Prior to Encounter Medication Sig Dispense Refill acetaminophen (TYLENOL EXTRA STRENGTH) 500 mg tablet Take 1 tablet by mouth every 6 (six) hours as needed for Pain. SOCIAL HISTORY Tobacco use: None Alcohol use: Every now and then, last drink 6-7 months Illicit drug use: none ROS See HPI above PHYSICAL EXAMINATION BP 117/71 | Pulse 95 | Temp 37 ?C (98.6 ?F) (Oral) | Resp 20 | Ht 1.803 m (5' 11") | Wt 129.3 kg (285 lb) | SpO2 94% | BMI 39.75 kg/m? General: Ill appearing, obese Lungs: CTAB, on RA Cardio: Regular S1 and S2, no m/g/r Abdomen: soft, NT ND Extremities: No edema, warm to touch Skin: Circular clearing of hair on scalp noted LABS - reviewed IMAGING - reviewed ASSESSMENT/PLAN Annia Orellana is a 34 year old male with PMH as listed above, admitted to the hospital with: Influenza A pneumonia Fever 2/2 above Leukocytosis 2/2 above Class 2 obesity Dizziness Nausea + vomiting Noncardiac chest pain Sepsis per SIRS criteria Patient contracted the Flu from his mother who is hospitalized for the same condition, symptoms started 2 days ago. Appears quite ill but is satting 92%+ on RA with ambulation per Ed nurse note. On RA at time of my exam as well. ED c/f superimposed PNA but CXR not with lobar infiltrate, and patient is on room air so low suspicion at this time. Additionally this is a bit early for superimposed bacterial. Will admit for obs and c/w tamiflu. Treat his symptoms. Given SIRS + for sepsis if assuming viral origin of infection, will need to complete sepsis bolus protocol. Chest pain reproducible on exam, non cardiac. -Admit remmers -AM cbc, bmp, Mag -A1c -Monitor O2 sats, start O2 if needed -C/w tamiflu for 5d course (EOT 07/10/24) -Bolus 1L LR, followed by 200/hr for 9 hours (3800 cc total including ER bolus) -Zofran PRN Chronic/Stable Problems Arthritis -PRN tylenol, ibuprofen Pain ppx: Tylenol, ibuprofen DVT ppx: [place] score 1, not indicated GI ppx: Not indicated Code Status: Full John Hussein MD Internal Medicine, PGY-2 [facility] Team APPLICATIONS DEVELOPER Associated attestation - Adam Francis DO - 07/06/2024 4:23 AM NET APPLICATIONS DEVELOPER I personally examined the patient on the date of service and agree with Dr. Hussein's resident note as written. I actively participated in the decision-making process. Please see the resident's note for additional details. Adam Francis DO [employer] | Department of Internal Medicine INTERNAL MEDICINE [facility]
--- NOTE | 2024-07-08 19:13 | RAD REPORT ---
EXAMINATION: US RIGHT LOWER EXTREMITY VENOUS DOPPLER CLINICAL INDICATION: Pain;Swelling RIGHT TECHNIQUE: Complete bilateral duplex sonography of the RIGHT lower extremity veins was performed. The examination included compression for vein patency, color Doppler imaging and flow augmentation in response to distal compression of the distal external iliac, common femoral, femoral, popliteal, tibi al, and great and small saphenous veins. COMPARISON: No prior exam. FINDINGS: Duplex sonography testing of the veins of the RIGHT lower extremity was performed. Thrombus is presen t proximal femoral vein to the popliteal vein. IMPRESSION: Positive for right-sided DVT.
--- NOTE | 2024-07-08 19:59 | RAD REPORT ---
EXAMINATION: ONE VIEW CHEST XR CLINICAL INDICATION: Chest pain;Dyspnea TECHNIQUE: Frontal chest projection is submitted. Examination is limited by patient positioning and t echnique. COMPARISON: 06/04/2022 FINDINGS: Ilmu-fj-lycsrdvj pulmonary edema. The heart is moderately enlarged in size. No displaced fractures id entified. IMPRESSION: Mvqy-[id number] CHF versus volume overload.
--- NOTE | 2024-07-08 20:01 | RAD REPORT ---
EXAMINATION: XR RIGHT KNEE CLINICAL INDICATION: Male, 34 years old. PAIN TECHNIQUE: Multiple views of the right knee were obtained. COMPARISON: No prior exam. FINDINGS: No bone or joint abnormality seen.
--- NOTE | 2024-07-08 20:02 | RAD REPORT ---
EXAMINATION: XR RIGHT ANKLE CLINICAL INDICATION: . PAIN TECHNIQUE:Two view radiograph of the right ankle were obtained. COMPARISON: No prior exam. FINDINGS: No bone or joint abnormality detected.
[2024-07-08] MEDS ORDERED: KETOROLAC 30 MG/ML INJ ONE (20:12)
[2024-07-08] MEDS ORDERED: HYDROCODONE/APAP 7.5/325 MG TAB ONE (20:13)
[2024-07-08 22:10] LABS: Absolute Basophils 0.1 K/uL (0-0.5); Absolute Eosinophils 14.4 K/uL (0-0.5); Absolute Lymphocytes (CBC) 1.7 K/uL (0.7-4.9); Absolute Monocytes 0.9 K/uL (0.1-1.3); Absolute Neutrophil 11.9 K/uL (1.8-8.0); Basophils % 0.3 % (0-1.3); Eosinophils % 49.8 % (0-4.4); Hematocrit 36.1 % (39.6-49.0); Hemoglobin 11.7 g/dL (13.6-17.9); Lymphocytes % 5.9 % (15.3-44.8); MCH 29.8 pg (27.0-35.0); MCHC 32.5 g/dL (32.0-36.0); MCV 91.8 fL (80-100); MPV 8.6 fL (7.6-11.3); Platelets 433 thou/uL (152-406); RBC Red Blood Cell Count 3.93 M/uL (4.33-5.43); Red Cell Distribution Width 14.1 % (12.1-15.2)
[2024-07-08 22:33] LABS: Anion Gap 9.4 mEq/L (5.0-15.0); BUN Blood Urea Nitrogen 9 mg/dL (7-18); Bicarbonate 25 mEq/L (21-32); Glomerular Filtration Rate 113 ml/min (=/>90); Glucose Level 102 mg/dL (74-106); Potassium 3.4 mEq/L (3.5-5.1); Sodium Level 137 mEq/L (136-145); Troponin High Sensitivity < 3.0 pg/mL (<58.9)
[2024-07-08 22:52] LABS: Band Neutrophils 2 % (0-1); Differential Total Cells Count 100; Lymphocytes 12 % (15-42); White Blood Cell Scan OK (OK)
[2024-07-08 22:53] LABS: Blood Morphology Comment NOT SEEN (NOT SEEN); Eosinophils 36 % (0-3); Monocytes 5 % (0-10); Platelet Estimate ADEQ; Segmented Neutrophils 41 % (40-80)
[2024-07-08 23:16] LABS: NT PRO-BNP 192 pg/mL (<125)
--- NOTE | 2024-07-09 01:04 | RAD REPORT ---
EXAMINATION: CT CHEST ANGIOGRAPHY WITH IV CONTRAST INDICATION: Male, 34 years old, pos dvt;Chest pain COMPARISON(S): None available TECHNIQUE: CT acquisition of the chest with contrast utilizing an institutional pulmonary angiogram t echnique. Maximal intensity projection and/or 3D sequences were created by the technologist. Coronal and sagittal reformatted images provided. This exam was performed according to departmental d ose-optimization program which includes automated exposure control, adjustment of the mA and/or kV according to patient size, and/or use of iterative reconstruction technique. FINDINGS: SUPPORT DEVICES: None. PULMONARY ARTERIES: Diagnostic quality: Adequate for assessment of the main pulmonary arteries. Filling defects: No evidence of pulmonary embolism. Caliber: No significant enlargement of the pulmonary arteries. LOWER NECK: Unremarkable. REMAINING CHEST: Mediastinum/dawna: Unremarkable appearance of the aorta. Multiple enlarged paratracheal and subcarinal lymph nodes. Unremarkable esophagus. Heart: Normal size and position of the intraventricular septum. No pericardial thickening or effusion . Lungs: Peribronchovascular groundglass to patchy opacities throughout all lobes, most consolidative i n the peripheral right middle lobe. Central airways are clear. Pleural Space: Small right layering simple density pleural effusion. UPPER ABDOMEN: No acute finding. Marked diffuse hepatic hypoenhancement with enlarged appearance. MUSCULOSKELETAL: No acute findings. IMPRESSION: 1. Limited exam. No evidence of pulmonary embolism within the main arteries. 2. Pulmonary opacities throughout all lobes favored to represent atypical infection or small amount of consolidative opacities in the right middle lobe may represent early or mild bronchopneumonia. 3. Multiple enlarged mediastinal lymph nodes which are probably reactive. Electronically signed by: Rajan Bates MD 07/09/2024 12:48 AM [facility] Due to temporary technical issues with the PACS/[employer] reporting system, reports are being debi d by the in-house radiologist without review as a courtesy to ensure prompt reporting the interpreting radiologist is fully responsible for the content of the report. Transcribed Date/Time: 07/09/2024 1:04 AM
[2024-07-09] MEDS ORDERED: AZITHROMYCIN 500 MG INJ IVPB ONE ×2 (01:52→17:55)
[2024-07-09] MEDS ORDERED: CEFTRIAXONE 1000 MG/VIAL ONE ×2 (01:52→08:10)
[2024-07-09] MEDS ORDERED: ENOXAPARIN 30 MG/0.3 ML SQ ONE (01:52)
[2024-07-09] MEDS ORDERED: ENOXAPARIN 100 MG/ML SYR SQ ONE (01:52)
[2024-07-09] MEDS ORDERED: NA CHLORIDE 0.9% 250 ML ONE ×2 (01:52→17:56)
[2024-07-09] MEDS ORDERED: NA CHLORIDE 0.9% 50 ML ONE ×2 (01:53→08:11)
--- NOTE | 2024-07-09 02:11 | ER ---
Nurse's Notes [facility] Name: Marcell Orellana Age: 34 yrs Sex: Male : 1990 Arrival Date: 07/08/2024 Time: 17:31 Bed 18 Private MD: Diagnosis: Acute embolism and thrombosis of other specified deep vein of right lower extremity-femoral to popliteal;Bronchopneumonia, unspecified organism;Influenza due to identified novel influenza A virus with pneumonia;Hypoxemia Presentation: 07/08 18:34 Chief complaint: Patient states: PAIN TO BACK OF RIGHT KNEE. PT REPORTS TENDERNESS TO cm10 RIGHT CALF. Coronavirus screen: Client denies travel out of the [place] in the last 14 days. Ebola Screen: Patient denies travel to an Ebola-affected area in the 21 days before illness onset. No symptoms or risks identified at this time. Initial Sepsis Screen: Does the patient meet any 2 criteria? HR > 90 bpm. Does the patient have a suspected source of infection? No. Patient's initial sepsis screen is negative. Risk Assessment: Do you want to hurt yourself or someone else? Patient reports no desire to harm self or others. Onset of symptoms was July 06, 2024. 18:34 Method Of Arrival: Wheelchair cm10 18:34 Acuity: MILTON 3 cm10 Triage Assessment: 18:35 General: Appears in no apparent distress. uncomfortable, Behavior is calm, cooperative. cm10 Neuro: No deficits noted. Level of Consciousness is awake, alert, obeys commands, Oriented to person, place, time, situation, Appropriate for age. Respiratory: No deficits noted. Airway is patent Respiratory effort is even, unlabored, Respiratory pattern is regular, symmetrical. Historical: - Allergies: 18:35 No Known Allergies; cm10 - PMHx: 18:35 COVID; cm10 - Immunization history:: Adult Immunizations up to date. - Infectious Disease History:: Denies. - Social history:: Smoking status: Patient denies any tobacco usage or history of. Screenin/11 01:00 [facility] ED Fall Risk Assessment (Adult) History of falling in the last 3 months, ha1 including since admission No falls in past 3 months (0 pts) Confusion or Disorientation No (0 pts) Intoxicated or Sedated No (0 pts) Impaired Gait No (0 pts) Mobility Assist Device Used No (0 pt) Altered Elimination Score/Fall Risk Level 0 - 2 = Low Risk Oriented to surroundings, Maintained a safe environment, Educated pt \T\ family on fall prevention, incl call for assistance when getting out of bed, Hourly rounding (assess needs \T\ fall precautionary measures) done. 03:01 Abuse screen: Denies threats or abuse. Denies injuries from another. Nutritional ha1 screening: No deficits noted. Tuberculosis screening: No symptoms or risk factors identified. Assessment: 00:00 General: Appears in no apparent distress. uncomfortable, Behavior is calm, cooperative, cp4 appropriate for age. 00:00 Pain: Complains of pain in right leg Pain does not radiate. Pain currently is 7 out of cp4 10 on a pain scale. Neuro: Level of Consciousness is awake, alert, obeys commands, Oriented to person, place, time, situation. Cardiovascular: Patient's skin is warm and dry. Respiratory: Airway is patent Respiratory effort is even, unlabored. GI: No signs and/or symptoms were reported involving the gastrointestinal system. : No signs and/or symptoms were reported regarding the genitourinary system. EENT: No signs and/or symptoms were reported regarding the EENT system. Derm: No signs and/or symptoms reported regarding the dermatologic system. Musculoskeletal: Reports pain in right leg. 01:00 Reassessment: Patient appears in no apparent distress at this time. Patient and/or cp4 family updated on plan of care and expected duration. Pain level reassessed. Patient is alert, oriented x 3, equal unlabored respirations, skin warm/dry/pink. 02:00 Reassessment: Patient appears in no apparent distress at this time. Patient and/or cp4 family updated on plan of care and expected duration. Pain level reassessed. Patient is alert, oriented x 3, equal unlabored respirations, skin warm/dry/pink. 03:03 Reassessment: Patient appears in no apparent distress at this time. Patient and/or cp4 family updated on plan of care and expected duration. Pain level reassessed. Patient is alert, oriented x 3, equal unlabored respirations, skin warm/dry/pink. 04:30 Reassessment: Patient appears in no apparent distress at this time. Patient and/or kj2 family updated on plan of care and expected duration. Pain level reassessed. Patient is alert, oriented x 3, equal unlabored respirations, skin warm/dry/pink. 05:39 Reassessment: Patient appears in no apparent distress at this time. Patient and/or kj2 family updated on plan of care and expected duration. Pain level reassessed. Patient is alert, oriented x 3, equal unlabored respirations, skin warm/dry/pink. Vital Signs: 07/08 18:34 BP 95 / 66; Pulse 106; Resp 18; Temp 98.9; Pulse Ox 96% ; Weight 129.27 kg; Height 5 cm10 ft. 11 in. ; 23:54 BP 103 / 68; Pulse 74; Resp 18; Pulse Ox 99% ; cp4 07/09 01:00 BP 108 / 64; Pulse 92; Resp 20 S; Pulse Ox 95% on 2 lpm NC; ha1 01:48 BP 103 / 65; Pulse 91 MON; Resp 20 S; Pulse Ox 95% on 2 lpm NC; aa10 02:30 BP 114 / 59; Pulse 86; Resp 20 S; Pulse Ox 95% on 2 lpm NC; ha1 07/08 18:34 Body Mass Index 39.75 (129.27 kg, 180.34 cm) cm10 01:48 Sinus Rhythm aa10 ED Course: 07/08 17:36 Patient arrived in ED. ra3 17:40 Tram Zhang PA-C is PHCP. sb4 17:40 Farhana Guan MD is Attending Physician. sb4 18:35 Triage completed. cm10 18:35 Arm band placed on right wrist. Patient placed in an exam room, on a stretcher. cm10 19:05 Extremity Venous Uni Ltd US In Process Unspecified. EDMS 19:18 Radiology exam delayed due to lab results not completed at this time. (BUN/Creatinine) nj IV insertion attempt and/or patient not having appropriate IV at this time. 19:53 Ankle Right 3 View XRAY In Process Unspecified. EDMS 19:53 Knee Right 3 View XRAY In Process Unspecified. EDMS 19:53 XRAY Chest (1 view) In Process Unspecified. EDMS 20:36 Missed attempt(s): 20 gauge in right antecubital area. vk 20:36 EKG done, by ED staff. vk 21:13 Radiology exam delayed due to lab results not completed at this time. (BUN/Creatinine) jc4 IV insertion attempt and/or patient not having appropriate IV at this time. 21:32 Radiology exam delayed due to lab results not completed at this time. (BUN/Creatinine) jc4 IV insertion attempt and/or patient not having appropriate IV at this time. 21:37 Inserted saline lock: 20 gauge in right forearm, using aseptic technique. Blood lg3 collected. Flushed with 10 mL NS. 22:00 Basic Metabolic Panel Sent. vk 22:00 CBC with Diff Sent. vk 22:00 Troponin HS Sent. vk 23:26 Wanda Quinn is Primary Nurse. cp4 23:33 Chest For PE Angio CT In Process Unspecified. EDMS 07/09 01:00 Patient has correct armband on for positive identification. Bed in low position. Call ha1 light in reach. Side rails up X 1. 01:45 Blood Culture Adult (2) Sent. aa10 01:45 Lactate w/ 2H reflex if indic. Sent. aa10 01:46 Inserted saline lock: 20 gauge in left wrist, using aseptic technique. Blood collected. aa10 Flushed with 10 mL NS. 02:09 Jossy Cobb MD is Hospitalizing Provider. sb4 03:02 Provided Education on: DVT and pneumonia. cp4 03:02 No provider procedures requiring assistance completed. Patient admitted, IV remains in cp4 place. Administered Medications: 07/08 20:15 CANCELLED (Physician Discretion): [id number] mg IM once sb4 20:17 Drug: Hydrocodone-Acetaminophen PO (7.5 mg-325 mg) 1 tabs PO once Route: PO; lg3 07/09 00:00 Follow up: Response: No adverse reaction; Pain is decreased cp4 01:40 Drug: Rocephin IV 1 grams IV at calculated rate once; Given slow IV push per pharmacy ha1 instructions Route: IV; Rate: calculated rate; Site: right wrist; 02:00 Follow up: Response: No adverse reaction; IV Status: Completed infusion; IV Intake: [id number] 02:02 Drug: AZITHromycin IVPB 500 mg IVPB once over 1 hrs; (mix in 250 mL NS) Route: IVPB; ha1 Infused Over: 1 hrs; Site: left wrist; 03:03 Follow up: Response: No adverse reaction; IV Status: Completed infusion; IV Intake: ha1 250ml 02:03 Drug: Enoxaparin Sub-Q 1 mg/kg Sub-Q once Route: Sub-Q; Site: abdomen; ha1 03:03 Follow up: Response: No adverse reaction cp4 Medication: 00:00 VIS not applicable for this client. cp4 Intake: 02:00 IV: 50ml; Total: 50ml. ha1 03:03 IV: 250ml; Total: 300ml. ha1 Outcome: 02:10 Decision to Hospitalize by Provider. sb4 19:14 Admitted to Med/surg accompanied by tech, via stretcher, rg5 19:14 Condition: stable 19:14 Instructed on the need for admit, 19:41 Patient left the ED. rg5 Signatures: Dispatcher [employer] EDMS Clint Stinson Lacie, RN RN lg3 Anastasiya La, RN RN ha1 Tram Zhang, PA-C PA-C sb4 Michelle Machado RN RN cm10 Wanda Quinn cp4 Jazmine Li ra3 Jael Luo Rommel RN RN rg5 Dontrell Moe4 Kristine Stinson, RN RN kj2 Randell Grider, RN RN aa10
--- NOTE | 2024-07-09 02:11 | EDPHYS ---
Physician Documentation [facility] Name: Marcell Orellana Age: 34 yrs Sex: Male : 1990 Arrival Date: 07/08/2024 Time: 17:31 Bed 18 Private MD: ED Physician Farhana Guan HPI: 07/08 18:40 This 34 yrs old Male presents to ER via Wheelchair with complaints of leg pain sb4 and swelling - right. 23:21 patient reports pain in right ankle, calf, and knee that began a few days ago. reports sb4 associated swelling states it began about 4 days ago and has gotten worse. hurts to bear weight. denies any injury. was recently diagnosed with influenza and is taking tamiflu. Historical: - Allergies: 18:35 No Known Allergies; cm10 - PMHx: 18:35 COVID; cm10 - Immunization history:: Adult Immunizations up to date. - Infectious Disease History:: Denies. - Social history:: Smoking status: Patient denies any tobacco usage or history of. ROS: 23:21 Constitutional: Negative for fever, chills, and weight loss, sb4 23:21 MS/extremity: Positive for pain, swelling, tenderness, warmth, of the right leg, 23:21 All other systems are negative, Exam: 23:21 Constitutional: This is a well developed, well nourished patient who is awake, alert, sb4 and in no acute distress. Head/Face: Normocephalic, atraumatic. Eyes: Extra-ocular motions intact. Periorbital areas with no swelling, redness, or edema. ENT: Mucous membranes moist. Respiratory: No increased work of breathing, no retractions or nasal flaring. Skin: Warm, dry with normal turgor. Normal color with no rashes, no lesions, and no evidence of cellulitis. 23:21 Musculoskeletal/extremity: DVT Exam: no appreciated bluish discoloration, no erythema, pain, swelling, tenderness, positive Homans' sign noted on exam, increased warmth, that is moderate, of the right leg, Vital Signs: 18:34 BP 95 / 66; Pulse 106; Resp 18; Temp 98.9; Pulse Ox 96% ; Weight 129.27 kg; Height 5 cm10 ft. 11 in. ; 23:54 BP 103 / 68; Pulse 74; Resp 18; Pulse Ox 99% ; cp4 07/09 01:00 BP 108 / 64; Pulse 92; Resp 20 S; Pulse Ox 95% on 2 lpm NC; ha1 01:48 BP 103 / 65; Pulse 91 MON; Resp 20 S; Pulse Ox 95% on 2 lpm NC; aa10 02:30 BP 114 / 59; Pulse 86; Resp 20 S; Pulse Ox 95% on 2 lpm NC; ha1 07/08 18:34 Body Mass Index 39.75 (129.27 kg, 180.34 cm) cm10 01:48 Sinus Rhythm aa10 MDM: 07/08 18:37 Medical Screening Exam initiated sb4 07/09 01:47 ED course: source of infection, pneumonia, not identified until 0048 per chest CTA. sb4 blood cultures and lactate ordered after. antibiotics then administered. 02:10 Data reviewed: vital signs, nurses notes, lab test result(s), EKG, radiologic studies, sb4 I have discussed the patient's presentation/case with the attending Emergency Department Physician; and as a result, I will admit patient. Counseling: I had a detailed discussion with the patient and/or guardian regarding the historical points, exam findings, and any diagnostic results supporting the discharge/admit diagnosis, the presence of at least one elevated blood pressure reading (>120/80) during this emergency department visit, lab results, radiology results, the need for further work-up and treatment in the hospital. 07/08 19:08 Order name: Basic Metabolic Panel; Complete Time: 02:45 sb4 07/08 19:08 Order name: CBC with Diff; Complete Time: 22:56 sb4 07/08 19:08 Order name: Troponin HS; Complete Time: 02:45 sb4 07/08 22:18 Order name: CBC Smear Scan; Complete Time: 22:56 EDMS 07/08 22:53 Order name: Manual Differential; Complete Time: 22:56 EDMS 07/08 23:06 Order name: NT PRO-BNP; Complete Time: 02:45 EDMS 07/09 00:59 Order name: Blood Culture Adult (2) sb4 07/09 00:59 Order name: Lactate w/ 2H reflex if indic.; Complete Time: 02:20 sb4 07/09 01:53 Order name: Liver (Hepatic) Function; Complete Time: 02:45 EDMS 07/09 02:37 Order name: Urinalysis w/ reflexes EDMS 07/09 02:38 Order name: CBC with Automated Diff EDMS 07/09 02:38 Order name: CBC with Automated Diff EDMS 07/09 02:38 Order name: Comprehensive Metabolic Panel EDMS 07/09 02:38 Order name: Comprehensive Metabolic Panel EDMS 07/09 02:38 Order name: Sputum Culture EDMS 07/08 18:37 Order name: Ankle Right 3 View XRAY; Complete Time: 20:02 sb4 07/08 18:37 Order name: Knee Right 3 View XRAY; Complete Time: 20:02 sb4 07/08 18:37 Order name: Extremity Venous Uni Ltd US; Complete Time: 19:14 sb4 07/08 19:08 Order name: XRAY Chest (1 view); Complete Time: 20:02 sb4 07/08 19:08 Order name: Chest For PE Angio CT sb4 07/08 19:08 Order name: EKG; Complete Time: 19:08 sb4 07/08 19:08 Order name: Cardiac monitoring; Complete Time: 20:36 sb4 07/08 19:08 Order name: EKG - Nurse/Tech; Complete Time: 20:36 sb4 07/08 19:08 Order name: IV Saline Lock; Complete Time: 21:37 sb4 07/08 19:08 Order name: Labs collected and sent; Complete Time: 21:37 sb4 07/08 19:08 Order name: O2 Per Protocol; Complete Time: 20:29 sb4 07/08 19:08 Order name: O2 Sat Monitoring; Complete Time: 20:29 sb4 EC/10 20:55 Rate is 93 beats/min. Rhythm is regular, Normal Sinus Rhythm. CO interval is normal at sb4 148 msec. QRS interval is normal at 94 msec. QT interval is normal at 352 msec. No Q waves. T waves are Normal. No ST changes noted. Clinical impression: incomplete right bundle branch block. Interpreted by me. Reviewed by me. Administered Medications: 20:15 CANCELLED (Physician Discretion): [id number] mg IM once sb4 20:17 Drug: Hydrocodone-Acetaminophen PO (7.5 mg-325 mg) 1 tabs PO once Route: PO; lg3 07/09 00:00 Follow up: Response: No adverse reaction; Pain is decreased cp4 01:40 Drug: Rocephin IV 1 grams IV at calculated rate once; Given slow IV push per pharmacy ha1 instructions Route: IV; Rate: calculated rate; Site: right wrist; 02:00 Follow up: Response: No adverse reaction; IV Status: Completed infusion; IV Intake: [id number] 02:02 Drug: AZITHromycin IVPB 500 mg IVPB once over 1 hrs; (mix in 250 mL NS) Route: IVPB; ha1 Infused Over: 1 hrs; Site: left wrist; 03:03 Follow up: Response: No adverse reaction; IV Status: Completed infusion; IV Intake: ha1 250ml 02:03 Drug: Enoxaparin Sub-Q 1 mg/kg Sub-Q once Route: Sub-Q; Site: abdomen; ha1 03:03 Follow up: Response: No adverse reaction cp4 Disposition Summary: 07/09/24 02:10 Hospitalization Ordered Notes: Hospitalization Status: Inpatient Admission sb4 Provider: Jossy Cobb sbLesly Condition: Fair sb4 Problem: new sb4 Symptoms: are unchanged sb4 Bed/Room Type: Standard sb4 Location: Telemetry/MedSurg (Inpatient)(07/09/24 18:18) bd Room Assignment: 216(07/09/24 18:18) bd Diagnosis - Acute embolism and thrombosis of other specified deep vein of right lower extremity sb4 - femoral to popliteal - Bronchopneumonia, unspecified organism sb4 - Influenza due to identified novel influenza A virus with pneumonia sb4 - Hypoxemia sb4 Forms: - Medication Reconciliation Form sb4 - SBAR form sb4 - Leadership Thank You Letter sb4 Signatures: Dispatcher [employer] EDMS Mari Padilla Lacie RN RN lg3 Anastasiya La RN RN ha1 Tram Zhang PA-C PA-C sb4 Michelle Machado, RN RN cm10 Wanda Quinn cp4 Corrections: (The following items were deleted from the chart) 07/08 20:15 18:38 Ketorolac IM 30 mg IM once ordered. sb4 sb4 23:06 22:34 PROBNP+C.LAB.BRZ ordered. EDMS EDMS 23: 22:48 PROBNP+C.LAB.BRZ ordered. EDMS EDMS 07/09 01:53 00:59 HEPATIC FUNCTION+C.LAB.MARISSA ordered. EDMS EDMS 02: 02:10 Telemetry/MedSurg (Inpatient) sb4 lg3 02:22 02:10 sb4 lg3 18:18 02:22 [facility] ER HOLD lg3 bd 18:18 02:22 ERHOLD- lg3 bd
[2024-07-09] MEDS ORDERED: ALBUTEROL 2.5 MG/3 ML NEB SOL NEB PRN ×2 (02:29→17:13)
--- NOTE | 2024-07-09 02:29 | P.HP ---
Certification for Inpatient Patient admitted to: Inpatient With expected LOS: >2 Midnights Practitioner: I am a practitioner with admitting privileges, knowledge of patient current condition, hospital course, and medical plan of care. Services: Services provided to patient in accordance with Admission requirements found in Title 42 Section 412.3 of the Code of Federal Regulations Patient History Date of Service: 07/09/24 Reason for admission: DVT History of Present Illness: 34-year-old male presents to the ER with complaints of right leg pain and swelling. Symptoms started 4 days ago. He was diagnosed with influenza 5 days ago. States he recently was prescribed Tamiflu. Reports feeling weak. Having productive cough with white and russo sputum. Denies fevers or chills. In the ER he was diagnosed with a right lower extremity DVT. Noted to have an elevated white blood cell. Imaging suggestive of possible pneumonia. he was placed on O2 Allergies No Known Allergies Allergy (Verified 04/23/12 18:05) Home Medications: Ascorbic Acid [Vitamin C*] 500 mg PO TID #90 tablet 03/14/21 Aspirin [Aspirin EC 81 MG] 81 mg PO DAILY #30 tablet. 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 - Social History Alcohol use: No CD- Drugs: No Caffeine use: Yes Review of Systems 10-point ROS is otherwise unremarkable General: Weakness Respiratory: Cough, Shortness of Breath Physical Examination - Physical Exam General: Alert, Oriented x3 HEENT: Atraumatic, Normocephalic Respiratory: Normal air movement, Other Cardiovascular: Regular rate/rhythm Gastrointestinal: Soft and benign Musculoskeletal: Swelling, Other (RLE tenderness) - Studies Laboratory Data (last 24 hrs) 07/09/24 07/08/24 07/08/24 00:59 22:00 22:00 WBC 29.00 H Hgb 11.7 L Hct 36.1 L Plt Count 433 H Sodium 137 Potassium 3.4 L BUN 9 Creatinine 0.92 Glucose 102 Total Bilirubin Cancelled AST Cancelled ALT Cancelled Alkaline Phosphatase Cancelled Assessment and Plan - Problems (Diagnosis) (1) Influenza Current Visit: Yes Status: Acute (2) Pneumonia Current Visit: Yes Status: Acute (3) DVT (deep venous thrombosis) Current Visit: Yes Status: Acute - Plan 34-year-old male recently diagnosed with flu presents with right lower extremity swelling and pain. Community-acquired pneumonia Influenza infection Hypoxemia --Likely multifactorial including pneumonia, airspace disease he may have sleep apnea and recent flu infection -- Noted to have significant leukocytosis, he did not have recent steroid use reported -- Will continue oxygen as needed, restart Tamiflu, continue azithromycin and Rocephin DVT right lower extremity --Continue to Lovenox for now anticipate starting oral anticoagulation tomorrow Weakness --Likely secondary to viral and possible bacterial infection DVT: Lovenox - Advance Directives Does patient have a Living Will: No Does patient have a Durable POA for Healthcare: No
[2024-07-09 02:33] LABS: ALT/SGPT 30 U/L (16-61); AST/SGOT 23 U/L (15-37); Albumin 2.5 g/dL (3.4-5.0); Albumin/Globulin Ratio 0.5 (1.1-1.8); Alkaline Phosphatase 46 U/L (45-117); Bilirubin Direct 0.2 mg/dL (0-0.2); Bilirubin Indirect, Calculated 0.2 mg/dL (0.2-0.8); Bilirubin Total 0.4 mg/dL (0.2-1.0); Globulin 5.5 g/dL (2.3-3.5)
[2024-07-09] MEDS: AZITHROMYCIN 1 GM PACKET PO SCH (03:00)
[2024-07-09 03:48] VITALS: BMI 39.7
[2024-07-09] MEDS: FLU (Fluarix Triv) TS24-25(6MOS UP)/PF 45 MCG/0.5 ML Syringe IM ONE (07:30)
[2024-07-09] MEDS ORDERED: APIXABAN 5 MG TABLET ONE (08:11)
[2024-07-09] MEDS ORDERED: OSELTAMIVIR 75 MG CAP PO ONE (08:11)
[2024-07-09] MEDS ORDERED: ENOXAPARIN 100 MG/ML SYR SQ SCH (09:00)
[2024-07-09] MEDS: CEFTRIAXONE 1,000 MG in NA CHLORIDE 0.9% 50 ML IVPB SCH (09:00)
[2024-07-09] MEDS: APIXABAN 5 MG TABLET PO SCH (09:00)
[2024-07-09] MEDS: OSELTAMIVIR 75 MG CAP PO SCH (09:00)
[2024-07-09] MEDS ORDERED: MORPHINE 2 MG/ML SYR ONE (12:49)
[2024-07-09] MEDS: MORPHINE 2 MG/ML SYR IV PRN (12:58)
[2024-07-09] MEDS ORDERED: KETOROLAC 30 MG/ML INJ ONE (14:30)
[2024-07-09] MEDS: KETOROLAC 30 MG/ML INJ IV PRN (14:33)
--- NOTE | 2024-07-09 17:18 | P.PN ---
Date of Service: 07/09/24 Patient seen and examined. He is complaining of shortness of breath and uncontrolled pain in the right leg with a DVT. CTA thorax reviewed and report atypical pneumonia, no PE. Patient is currently dependent on oxygen and short of breath with speaking. Plan: Sepsis Influenza infection Bacterial pneumonia Right lower extremity DVT Recently diagnosed with influenza Concern for secondary bacterial pneumonia. Lovenox transition to Eliquis DVT dosing. Continue IV Rocephin Zithromax added for community-acquired pneumonia. Continue Tamiflu Analgesics as needed. Monitor CBC.
[2024-07-09] MEDS: AZITHROMYCIN IV 500 MG in NA CHLORIDE 0.9% 250 ML IVPB SCH (18:00)
[2024-07-09] MEDS: MORPHINE 2 MG/ML SYR IV ONE (21:12)
[2024-07-09] MEDS: ACETAMINOPHEN 325 MG TABLET PO PRN (21:14)
[2024-07-10] MEDS: ALBUTEROL 2.5 MG/3 ML NEB SOL NEB SCH (01:53)
[2024-07-10] MEDS: GUAIFENESIN/DM 5 ML UCUP PO PRN (02:01)
[2024-07-10 03:22] LABS: Specific Gravity > 1.030 (1.005-1.030); Sqamous Epithelial <5 /HPF (None Seen); Urine Bacteria None Seen /HPF (<20); Urine Bilirubin NEGATIVE (Negative); Urine Blood Negative (Negative); Urine Clarity Clear (Clear); Urine Color Yellow (Yellow); Urine Culture Reflex Order NOT NEEDED; Urine Glucose NEGATIVE (Negative); Urine Ketones NEGATIVE (Negative); Urine Microscopic Reflex YN ORDER UMIC; Urine Mucus 2+ /HPF (None Seen); Urine Nitrite NEGATIVE (Negative); Urine Protein 1+ (Negative); Urine RBC <5 /HPF (None Seen); Urine Urobilinogen Normal (Normal); Urine WBC <5 /HPF (<5)
[2024-07-10 06:08] LABS: Absolute Basophils 0.1 K/uL (0-0.5); Absolute Eosinophils 7.5 K/uL (0-0.5); Absolute Lymphocytes (CBC) 1.6 K/uL (0.7-4.9); Absolute Monocytes 0.5 K/uL (0.1-1.3); Absolute Neutrophil 7.7 K/uL (1.8-8.0); Basophils % 0.6 % (0-1.3); Eosinophils % 43.2 % (0-4.4); Hematocrit 32.8 % (39.6-49.0); Hemoglobin 11.1 g/dL (13.6-17.9); Lymphocytes % 9.1 % (15.3-44.8); MCH 30.9 pg (27.0-35.0); MCHC 33.7 g/dL (32.0-36.0); MCV 91.8 fL (80-100); MPV 8.7 fL (7.6-11.3); Monocytes % 2.7 % (3.3-12.3); Neutrophils % 44.4 % (41.7-73.7); Nucleated Red Blood Cells % 0.1 % (0-0); Platelets 419 thou/uL (152-406); RBC Red Blood Cell Count 3.57 M/uL (4.33-5.43); Red Cell Distribution Width 14.4 % (12.1-15.2)
[2024-07-10 06:26] LABS: Albumin 1.9 g/dL (3.4-5.0); Albumin/Globulin Ratio 0.4 (1.1-1.8); Anion Gap 5.8 mEq/L (5.0-15.0); Bilirubin Total 0.4 mg/dL (0.2-1.0); Globulin 5.4 g/dL (2.3-3.5); Potassium 3.8 mEq/L (3.5-5.1); Protein, Total 7.3 g/dL (6.4-8.2)
--- NOTE | 2024-07-10 12:55 | P.PN ---
Subjective Date of Service: 07/10/24 Chief Complaint: DVT Patient states his shortness of breath is much better compared to yesterday. He reports significant right calf pain worse with ambulation. Patient had fever yesterday, no recorded fever since this morning. He reports cough productive of whitish sputum. Physical Examination - Vital Signs Temperature: 97.7 F Blood Pressure: 128/52 Pulse: 57 Respirations: 16 Pulse Ox (%): 100 Assessment And Plan - Plan Physical examination General: Alert and oriented x3, NAD, morbidly obese HEENT: Conjunctiva not pale, anicteric sclera Neck: Supple, no elevated JVD Heart: Heart sounds 1 and 2 normal, regular rhythm, normal rate, no pedal edema Lungs: Clear to auscultation bilaterally, adequate breath sounds bilaterally, no rhonchi or crackles. Abdomen: Soft, nondistended, nontender, normal bowel sounds. Extremities: No tenderness, no deformity Skin: Normal skin turgor, no rash, no nodules or ulcers. Neuro: No focal motor deficit. Normal speech. Psychiatry: Normal mood, no agitation. Diagnosis Sepsis Influenza infection Bacterial pneumonia Right lower extremity DVT Right lower extremity DVT Plan Sepsis Influenza infection Bacterial pneumonia Recently diagnosed with influenza Leukocytosis is trending down. Continue Tamiflu Concern for secondary bacterial pneumonia. Continue IV Rocephin and Zithromax Right lower extremity DVT No PE Lovenox transition to Eliquis DVT dosing. Continue Eliquis Analgesics as needed Morbid obesity Weight loss by diet and exercise advised. DVT prophylaxis: On Eliquis.
[2024-07-11] MEDS: GUAIFENESIN/DM 5 ML UCUP PO PRN (02:28)
[2024-07-11 05:26] LABS: Absolute Basophils 0.1 K/uL (0-0.5); Absolute Eosinophils 10.7 K/uL (0-0.5); Absolute Lymphocytes (CBC) 1.6 K/uL (0.7-4.9); Absolute Monocytes 0.5 K/uL (0.1-1.3); Absolute Neutrophil 8.2 K/uL (1.8-8.0); Basophils % 0.2 % (0-1.3); Eosinophils % 50.9 % (0-4.4); Hematocrit 31.9 % (39.6-49.0); Hemoglobin 10.3 g/dL (13.6-17.9); Lymphocytes % 7.7 % (15.3-44.8); MCH 29.9 pg (27.0-35.0); MCHC 32.4 g/dL (32.0-36.0); MCV 92.3 fL (80-100); MPV 8.6 fL (7.6-11.3); Monocytes % 2.3 % (3.3-12.3); Neutrophils % 38.9 % (41.7-73.7); Platelets 451 thou/uL (152-406); RBC Red Blood Cell Count 3.46 M/uL (4.33-5.43); Red Cell Distribution Width 14.2 % (12.1-15.2)
[2024-07-11 05:35] LABS: Anion Gap 8.5 mEq/L (5.0-15.0); Potassium 3.5 mEq/L (3.5-5.1)
[2024-07-11 06:20] LABS: Differential Total Cells Count 100; Segmented Neutrophils 36 % (40-80)
[2024-07-11 06:21] LABS: Band Neutrophils 2 % (0-1); Blood Morphology Comment NOT SEEN (NOT SEEN); Eosinophils 46 % (0-3); Lymphocytes 13 % (15-42); Monocytes 3 % (0-10); Platelet Estimate INCR
[2024-07-11] MEDS ORDERED: VANCOMYCIN 1 GM in NA CHLORIDE 0.9% 250 ML IVPB SCH (08:00)
[2024-07-11] MEDS: Levofloxacin 750mg IV 750 MG/150 ML BAG IV SCH (08:54)
[2024-07-11] MEDS: VANCOMYCIN 2 GM in NA CHLORIDE 0.9% 500 ML IVPB SCH (10:17)
--- NOTE | 2024-07-11 13:15 | P.PN ---
Subjective Date of Service: 07/11/24 Chief Complaint: DVT Patient no changes in his shortness of breath from yesterday.. Patient was placed on oxygen last night. He was noted to be short of breath with speaking. He states the pain in his right calf is better however reports significant pain. Physical Examination - Vital Signs Temperature: 98.5 F Blood Pressure: 138/68 Pulse: 83 Respirations: 18 Pulse Ox (%): 95 Assessment And Plan - Plan Physical examination General: Alert and oriented x3, NAD, morbidly obese HEENT: Anicteric sclera Neck: Supple, no elevated JVD Heart: Heart sounds 1 and 2 normal, regular rhythm, normal rate, no pedal edema Lungs: Clear to auscultation bilaterally, adequate breath sounds bilaterally, no rhonchi or crackles. Abdomen: Soft, nondistended, nontender, normal bowel sounds. Extremities: No tenderness, no deformity Skin: Normal skin turgor, no rash, no nodules or ulcers. Neuro: No focal motor deficit. Normal speech. Psychiatry: Normal mood, no agitation. Diagnosis Sepsis Influenza infection Bacterial pneumonia Right lower extremity DVT Right lower extremity DVT Plan Sepsis Influenza infection Bacterial pneumonia Recently diagnosed with influenza Repeat flu screen is negative. COVID-19 test is pending Continue Tamiflu Concern for secondary bacterial pneumonia. Antibiotics changed to vancomycin and Levaquin given worsening leukocytosis from yesterday. Repeat chest x-ray. Right lower extremity DVT No PE Lovenox transition to Eliquis DVT dosing. Continue Eliquis Analgesics as needed Morbid obesity Weight loss by diet and exercise advised. Increase activity as tolerated. DVT prophylaxis: On Eliquis.
--- NOTE | 2024-07-11 15:54 | EKG ---
Test Date: 2024-07-08 Test Time: 20:34:59 Quantity Surveyor: CHERI MEASUREMENT RESULTS: Intervals: Rate: 93 OH: 148 QRSD: 94 QT: 352 QTc: 437 [place]: P: 56 OH: 148 QRS: 66 T: 41 INTERPRETIVE STATEMENTS: Normal sinus rhythm Incomplete right bundle branch block Nonspecific T wave abnormality Abnormal ECG No previous ECG available for comparison Electronically Signed On 07-11-24 15:49:58 SEWING DEPARTMENT SUPERVISOR by Ranjeet Severino
--- NOTE | 2024-07-11 16:22 | RAD REPORT ---
EXAM: Chest Single View HISTORY: Follow-up pneumonia COMPARISON: 07/08/2024 FINDINGS: LUNGS/PLEURA: Low lung volumes with increased prominence of the pulmonary interstitium. This may be a ccentuated by the decreased volumes. No consolidative airspace MEDIASTINUM: The mediastinal silhouette is within normal limits. CARDIAC: Similar size and configuration. UPPER ABDOMEN: No significant abnormality. BONES: No acute fracture. LINES/TUBES/OTHER: N/A IMPRESSION: Decreased lung volumes which can accentuate the pulmonary vasculature. There are still findings sugge stive of either an atypical infection and/or pulmonary edema.
[2024-07-11 19:21] LABS: SARS-CoV-2 Antigen CONTROL BLUE LINE VIS/BG OK; SARS-CoV-2 Antigen Rapid Res Negative (Negative)
[2024-07-12 04:51] LABS: Hemoglobin 10.6 g/dL (13.6-17.9); MPV 8.4 fL (7.6-11.3)
[2024-07-12 05:00] LABS: Absolute Basophils 0.1 K/uL (0-0.5); Absolute Eosinophils 13.1 K/uL (0-0.5); Absolute Lymphocytes (CBC) 1.5 K/uL (0.7-4.9); Absolute Monocytes 0.6 K/uL (0.1-1.3); Absolute Neutrophil 9.4 K/uL (1.8-8.0); Basophils % 0.4 % (0-1.3); Eosinophils % 52.8 % (0-4.4); Hematocrit 31.5 % (39.6-49.0); Lymphocytes % 6.2 % (15.3-44.8); MCH 30.6 pg (27.0-35.0); MCHC 33.6 g/dL (32.0-36.0); MCV 91.1 fL (80-100); Monocytes % 2.6 % (3.3-12.3); Nucleated Red Blood Cells % 0.1 % (0-0); Platelets 486 thou/uL (152-406); RBC Red Blood Cell Count 3.46 M/uL (4.33-5.43)
[2024-07-12 05:03] LABS: Anion Gap 6.7 mEq/L (5.0-15.0); Potassium 3.7 mEq/L (3.5-5.1)
[2024-07-12] MEDS: FUROSEMIDE 40 MG/4 ML VIAL IV SCH (09:00)
--- NOTE | 2024-07-12 09:52 | P.CNS ---
Date of Consult: 07/12/24 Reason for Consult: Pneumonia and right-sided DVT Chief Complaint: DVT History of Present Illness: Is 34 years of age sick for about about 4 days he was diagnosed with influenza started complaining of right sided leg pain was evaluated in the emergency room discharge pain became worse started having cough congestion shortness of breath and was admitted to the hospital with a diagnosis of pneumonia and right-sided DVT history of cough and congestion pain has improved and occurs on exertion Allergies No Known Allergies Allergy (Verified 04/23/12 18:05) Home Medications: NK [No Home Meds] 07/09/24 - Past Medical/Surgical History -: Obesity -: None Psychosocial/ Personal History: Lives with mother, 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 - Social History Alcohol use: No CD- Drugs: No Caffeine use: Yes Review of Systems Respiratory: Cough, Shortness of Breath Musculoskeletal: Leg Pain Physical Examination Temp Pulse Resp BP Pulse Ox 100.4 F 74 16 138/65 96 07/12/24 08:33 07/12/24 08:00 07/12/24 08:00 07/12/24 08:00 07/12/24 08:00 General: Alert, Oriented x3, Moderate distress Respiratory: Expiratory wheezes Cardiovascular: No edema, Normal pulses, Normal S1 S2 Gastrointestinal: Normal bowel sounds, Soft and benign Musculoskeletal: No clubbing Integumentary: Tenderness/swelling (Has swelling of the right leg) - Problems (1) DVT (deep venous thrombosis) Current Visit: Yes Status: Acute Plan: 34 years of age admitted with acute right-sided DVT agree with Eliquis as per protocol (2) Pneumonia Current Visit: Yes Status: Acute Plan: Patient has also had right-sided infiltrate elevated white count agree with Levaquin not at risk for MRSA infection can DC vancomycin labs all reviewed DC Lasix was diagnosed with influenza infection developed a superimposed bacterial infection and DC Tamiflu his screen is now negative scheduled bronchodilators due to acute persistent cough Qualifiers: Pneumonia type: due to unspecified organism Laterality: right
--- NOTE | 2024-07-12 13:01 | P.PN ---
Subjective Date of Service: 07/12/24 Chief Complaint: DVT Patient states she feels better today compared to yesterday. He reports less right calf pain and now able to bend his knee without pain. He continues to experience intermittent fever. He reports improvement in his shortness of breath. Physical Examination - Vital Signs Temperature: 98.5 F Blood Pressure: 117/65 Pulse: 79 Respirations: 16 Pulse Ox (%): 95 Assessment And Plan - Plan Physical examination General: Alert and oriented x3, NAD, morbidly obese HEENT: Anicteric sclera Neck: no elevated JVD Heart: Heart sounds 1 and 2 normal, regular rhythm, normal rate, no pedal edema Lungs: Clear to auscultation bilaterally, adequate breath sounds bilaterally, no rhonchi or crackles. Abdomen: Soft, nondistended, nontender, normal bowel sounds. Extremities: No tenderness, right leg slightly swollen compared to the left. Skin: Normal skin turgor, no rash, no nodules or ulcers. Neuro: No focal motor deficit. Normal speech. Psychiatry: Normal mood, no agitation. Diagnosis Sepsis Influenza infection Bacterial pneumonia Right lower extremity DVT Right lower extremity DVT Plan Sepsis Influenza infection Bacterial pneumonia Recently diagnosed with influenza Repeat flu screen is negative. COVID-19 test is negative Continue Tamiflu Concern for secondary bacterial pneumonia. Continue Levaquin. Pulmonary Dr. Nicole input appreciated. Chest physiotherapy. Bronchodilators-patient started on budesonide neb. Right lower extremity DVT No PE Lovenox transition to Eliquis DVT dosing. Continue Eliquis Analgesics as needed Morbid obesity Weight loss by diet and exercise advised. Increase activity as tolerated. DVT prophylaxis: On Eliquis.
[2024-07-12] MEDS: IPRATROPIUM BROM 0.5MG/2.5ML NEB SCH (14:08)
[2024-07-13 04:25] LABS: Absolute Basophils 0.1 K/uL (0-0.5); Absolute Eosinophils 13.2 K/uL (0-0.5); Absolute Lymphocytes (CBC) 1.7 K/uL (0.7-4.9); Absolute Monocytes 0.6 K/uL (0.1-1.3); Absolute Neutrophil 11.7 K/uL (1.8-8.0); Basophils % 0.3 % (0-1.3); Eosinophils % 48.3 % (0-4.4); Hematocrit 32.4 % (39.6-49.0); Hemoglobin 10.8 g/dL (13.6-17.9); Lymphocytes % 6.3 % (15.3-44.8); MCH 30.4 pg (27.0-35.0); MCHC 33.3 g/dL (32.0-36.0); MCV 91.2 fL (80-100); Monocytes % 2.3 % (3.3-12.3); Neutrophils % 42.8 % (41.7-73.7); Platelets 526 thou/uL (152-406); RBC Red Blood Cell Count 3.55 M/uL (4.33-5.43); Red Cell Distribution Width 14.3 % (12.1-15.2)
[2024-07-13 04:37] LABS: Anion Gap 6.8 mEq/L (5.0-15.0); Potassium 3.8 mEq/L (3.5-5.1)
[2024-07-13] MEDS: BUDESONIDE 0.5 MG/2 ML NEB NEB SCH (08:09)
--- NOTE | 2024-07-13 11:51 | P.PN ---
Subjective Date of Service: 07/13/24 Chief Complaint: DVT Patient reports he is gradually getting better. He reports improvement in his right calf pain. He was seen sitting up in bed. He reports intermittent nonproductive cough. Physical Examination - Vital Signs Temperature: 99.3 F Blood Pressure: 128/69 Pulse: 71 Respirations: 16 Pulse Ox (%): 94 Assessment And Plan - Plan Physical examination General: Alert and oriented x3, NAD, morbidly obese Neck: no elevated JVD Heart: Heart sounds 1 and 2 normal, regular rhythm, normal rate, no pedal edema Lungs: Mild bilateral crackles, adequate breath sounds bilaterally, no rhonchi or crackles. Abdomen: Soft, nondistended, nontender, normal bowel sounds. Extremities: No tenderness, right leg slightly swollen compared to the left. Skin: Normal skin turgor, no rash, no nodules or ulcers. Neuro: No focal motor deficit. Normal speech. Psychiatry: Normal mood, no agitation. Diagnosis Sepsis Influenza infection Bacterial pneumonia Right lower extremity DVT Right lower extremity DVT Plan Sepsis Influenza infection Bacterial pneumonia Recently diagnosed with influenza Repeat flu screen is negative. COVID-19 test is negative Patient with severe leukocytosis Continue Tamiflu Concern for secondary bacterial pneumonia. Continue antibiotic. Pulmonary Dr. Nicole is as follows Chest physiotherapy. Bronchodilators-patient started on budesonide neb. Ordered CBC to follow leukocytosis. Right lower extremity DVT No PE Lovenox transition to Eliquis DVT dosing. Continue Eliquis Analgesics as needed Morbid obesity Weight loss by diet and exercise advised. Increase activity as tolerated. DVT prophylaxis: On Eliquis.
[2024-07-14 05:15] LABS: Absolute Basophils 0.1 K/uL (0-0.5); Absolute Eosinophils 14.9 K/uL (0-0.5); Absolute Lymphocytes (CBC) 1.7 K/uL (0.7-4.9); Absolute Monocytes 0.8 K/uL (0.1-1.3); Absolute Neutrophil 10.7 K/uL (1.8-8.0); Basophils % 0.5 % (0-1.3); Hematocrit 31.5 % (39.6-49.0); Hemoglobin 10.4 g/dL (13.6-17.9); Lymphocytes % 6.1 % (15.3-44.8); MCH 30.2 pg (27.0-35.0); MCV 91.5 fL (80-100); MPV 8.4 fL (7.6-11.3); Monocytes % 2.9 % (3.3-12.3); Neutrophils % 37.8 % (41.7-73.7); Platelets 517 thou/uL (152-406); RBC Red Blood Cell Count 3.45 M/uL (4.33-5.43); Red Cell Distribution Width 14.2 % (12.1-15.2)
[2024-07-14 05:23] LABS: Eosinophils % 52.7 % (0-4.4)
--- NOTE | 2024-07-14 14:56 | P.PN ---
Subjective Date of Service: 07/14/24 Chief Complaint: DVT Patient respiratory status appears to be worse compared to yesterday. He is now needing 2 L oxygen by nasal cannula at rest. No recorded fever. He has nonproductive cough, worse with speaking. Leukocytosis continues to worsen. He reports significant improvement in his right calf pain. Physical Examination - Vital Signs Temperature: 98.8 F Blood Pressure: 117/65 Pulse: 88 Respirations: 24 Pulse Ox (%): 99 - Studies Microbiology Data (last 24 hrs): 07/09/24 01:30 Blood - Blood Aerobic Blood Culture - Final No growth in 5 days. 07/09/24 01:30 Blood - Blood Anaerobic Blood Culture - Final No growth in 5 days. 07/09/24 01:15 Blood - Blood Aerobic Blood Culture - Final No growth in 5 days. 07/09/24 01:15 Blood - Blood Anaerobic Blood Culture - Final No growth in 5 days. Assessment And Plan - Plan Physical examination General: Alert and oriented x3, NAD, morbidly obese Neck: no elevated JVD Heart: Heart sounds 1 and 2 normal, regular rhythm, normal rate, no pedal edema Lungs: Mild bilateral crackles, adequate breath sounds bilaterally, no rhonchi. Abdomen: Soft, nondistended, nontender, normal bowel sounds. Extremities: No tenderness, right leg slightly swollen compared to the left. Skin: Normal skin turgor, no rash, no nodules or ulcers. Neuro: No focal motor deficit. Normal speech. Psychiatry: Normal mood, no agitation. Diagnosis Sepsis Eosinophilia Influenza infection Bacterial pneumonia Right lower extremity DVT Right lower extremity DVT Plan Sepsis Influenza infection Bacterial pneumonia Recently diagnosed with influenza Repeat flu screen is negative. COVID-19 test is negative Patient with severe leukocytosis. Leukocytosis likely due to esinophilia. Respiratory failure present on admission. Continue Tamiflu Concern for secondary bacterial pneumonia. Continue oral Levaquin. Trial of IV steroid for possible hypersensitivity/allergic reaction. Pulmonary Dr. Nichols to follow Trial of Solu-Medrol IV 60 mg every 6 hours Chest physiotherapy. Sputum examination. Continue budesonide nebs Monitor CBC Right lower extremity DVT No PE Lovenox transitioned to Eliquis DVT dosing. Continue Eliquis Analgesics as needed Morbid obesity Weight loss by diet and exercise advised. Increase activity as tolerated. DVT prophylaxis: On Eliquis.
--- NOTE | 2024-07-14 16:08 | P.PN ---
Subjective Date of Service: 07/14/24 Chief Complaint: DVT , hypoxemia and eosinophilia Subjective: Improving (R leg pain is improved hypoxic) Review of Systems General: Weakness Respiratory: Shortness of Breath Musculoskeletal: Leg Pain Physical Examination - Vital Signs Temperature: 98.8 F Blood Pressure: 117/65 Pulse: 88 Respirations: 24 Pulse Ox (%): 99 - Physical Exam General: Alert, Oriented x3 Respiratory: Clear to auscultation bilaterally Cardiovascular: No edema, Regular rate/rhythm, Normal S1 S2 - Studies Microbiology Data (last 24 hrs): 07/09/24 01:30 Blood - Blood Aerobic Blood Culture - Final No growth in 5 days. 07/09/24 01:30 Blood - Blood Anaerobic Blood Culture - Final No growth in 5 days. 07/09/24 01:15 Blood - Blood Aerobic Blood Culture - Final No growth in 5 days. 07/09/24 01:15 Blood - Blood Anaerobic Blood Culture - Final No growth in 5 days. Assessment And Plan - Current Problems (Diagnosis) (1) DVT (deep venous thrombosis) Current Visit: Yes Status: Acute Plan: R leg pain has improved. 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 Eos sig elevated. Agree with steroids. Tx with steroids for 1 wk. Repeat CBC 1 wk after stopping steroids to confirm. On NSAIDS. Denies travel or rash.No other OTC meds Qualifiers: Pneumonia type: due to unspecified organism Laterality: right
[2024-07-14] MEDS: METHYLPREDNISOLONE 125 MG INJ IV SCH (17:15)
[2024-07-15 06:13] LABS: Absolute Basophils 0.1 K/uL (0-0.5); Absolute Eosinophils 22.7 K/uL (0-0.5); Absolute Lymphocytes (CBC) 0.9 K/uL (0.7-4.9); Absolute Monocytes 0.2 K/uL (0.1-1.3); Absolute Neutrophil 15.3 K/uL (1.8-8.0); Basophils % 0.3 % (0-1.3); Eosinophils % 57.8 % (0-4.4); Hematocrit 34.1 % (39.6-49.0); Hemoglobin 11.3 g/dL (13.6-17.9); Lymphocytes % 2.4 % (15.3-44.8); MCH 30.6 pg (27.0-35.0); MCHC 33.3 g/dL (32.0-36.0); MCV 91.9 fL (80-100); MPV 8.5 fL (7.6-11.3); Monocytes % 0.5 % (3.3-12.3); Nucleated Red Blood Cells % 0.1 % (0-0); Platelets 589 thou/uL (152-406); RBC Red Blood Cell Count 3.71 M/uL (4.33-5.43); Red Cell Distribution Width 14.4 % (12.1-15.2)
[2024-07-15 06:25] LABS: Anion Gap 9.9 mEq/L (5.0-15.0); Potassium 3.9 mEq/L (3.5-5.1)
[2024-07-15 09:13] LABS: Blood Morphology Comment NOT SEEN (NOT SEEN); Differential Total Cells Count 100; Eosinophils 62 % (0-3); Lymphocytes 6 % (15-42); Monocytes 1 % (0-10); Platelet Estimate ADEQ; Segmented Neutrophils 30 % (40-80)
[2024-07-15] MEDS: predniSONE 20 MG TAB PO SCH (09:53)
--- NOTE | 2024-07-15 12:14 | P.PN ---
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 Recently Diagnosed with Flu ~5 days prior to admission Repeat flu screen is negative. COVID-19 test is negative Patient with severe leukocytosis. 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 s/p tamiflu (07/09-07/12) Dr. Nichols, pulm is following consulted heme/onc Chest physiotherapy. duonebs Monitor CBC Acute right lower extremity DVT, ?provoked seems to be provoked - reports 1-2 yrs of RLE pain, and a few days not ambulating much on admission, presents with Right leg pain/swelling for ~4 days. venous u/s (07/08): Positive DVT. Thrombus proximal femoral vein to the popliteal vein Lovenox transitioned to eliquis Continue Eliquis VTE: Eliquis Code: Full Dispo: Home, ~2 days Pending improvement, pulm recs. Leukocytosis improves. Time Spent Managing Pts Care (In Minutes): 55
[2024-07-16 01:15] VITALS: O2SAT 94
[2024-07-16 04:43] LABS: Absolute Basophils 0.1 K/uL (0-0.5); Absolute Eosinophils 21.9 K/uL (0-0.5); Absolute Lymphocytes (CBC) 1.5 K/uL (0.7-4.9); Absolute Neutrophil 19.4 K/uL (1.8-8.0); Basophils % 0.2 % (0-1.3); Hematocrit 33.8 % (39.6-49.0); Hemoglobin 11.2 g/dL (13.6-17.9); Lymphocytes % 3.3 % (15.3-44.8); MCHC 33.2 g/dL (32.0-36.0); MCV 93.3 fL (80-100); MPV 8.6 fL (7.6-11.3); Monocytes % 2.2 % (3.3-12.3); Neutrophils % 44.3 % (41.7-73.7); Platelets 630 thou/uL (152-406); RBC Red Blood Cell Count 3.63 M/uL (4.33-5.43); Red Cell Distribution Width 14.5 % (12.1-15.2)
[2024-07-16 04:53] LABS: Albumin 2.5 g/dL (3.4-5.0); Albumin/Globulin Ratio 0.4 (1.1-1.8); Anion Gap 8.6 mEq/L (5.0-15.0); Bilirubin Total 0.3 mg/dL (0.2-1.0); Globulin 6.1 g/dL (2.3-3.5); Magnesium 2.5 mg/dL (1.6-2.4); Potassium 4.6 mEq/L (3.5-5.1); Protein, Total 8.6 g/dL (6.4-8.2)
--- NOTE | 2024-07-16 08:12 | RAD REPORT ---
EXAMINATION: ONE VIEW CHEST XR CLINICAL INDICATION: f/u opacities TECHNIQUE: Frontal chest projection is submitted. Examination is limited by patient positioning and t echnique. COMPARISON: 07/11/2024 FINDINGS: Bilateral pulmonary opacities are stable since the comparison study. The heart is mildly prominent in size. No displaced fractures identified. IMPRESSION: Stable chest since prior study with [id number] bilateral pulmonary opacities unchanged.
[2024-07-16] MEDS: APIXABAN 5 MG TABLET PO SCH (08:51)
--- NOTE | 2024-07-16 12:18 | P.PN ---
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 Recently Diagnosed with Flu ~5 days prior to admission Repeat flu screen is negative. COVID-19 test is negative Patient with severe leukocytosis. 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 s/p tamiflu (07/09-07/12) Dr. Nichols, pulm is following consulted heme/onc Chest physiotherapy. duonebs Monitor CBC CT abdomen ordered to further eval, r/o lymphadenopathy discussed with pulm and heme/onc if no LAD amenable to biopsy, and if continues to improve clinically, likely dc home in next 1-2 days, ~2 week steroid course and f/u for further eval/workup Acute right lower extremity DVT, ?provoked seems to be provoked - reports 1-2 yrs of RLE pain, and a few days not ambulating much on admission, presents with Right leg pain/swelling for ~4 days. venous u/s (07/08): Positive DVT. Thrombus proximal femoral vein to the popliteal vein Lovenox transitioned to eliquis Continue Eliquis VTE: Eliquis Code: Full Dispo: Home, ~1 day Pending improvement, pulm recs. Time Spent Managing Pts Care (In Minutes): 55
--- NOTE | 2024-07-16 12:28 | RAD REPORT ---
EXAMINATION: CT ABDOMEN AND PELVIS WITH CONTRAST CLINICAL INDICATION: r/o lymphadenopathy TECHNIQUE: CT abdomen and pelvis was performed, after the administration of IV contrast, as per [facility] protocol. Axial, sagittal and coronal reconstructions were obtained. One or more of the following dose reduction techniques were used: Automated exposure control, adjustment of the mA and k V according to patient size, and iterative reconstruction. Unless otherwise specified, incidental findings do not require dedicated imaging follow-up. COMPARISON: 07/08/2024 CT chest, chest film 07/16/2024 FINDINGS: LOWER CHEST: Mild opacities are present in the right lung base peripherally likely related to infiltr ate/infection. Trace pleural fluid bilaterally. LIVER: Mild fatty liver is present. No focal lesion or biliary dilatation is seen. Numerous gallsto samantha are present in the gallbladder. SPLEEN: Normal size. No focal lesion. PANCREAS: No mass, ductal dilation, or toyin-pancreatic fluid. ADRENALS: Normal; no mass. KIDNEYS: Normal size and contour. No hydronephrosis. GASTROINTESTINAL TRACT: No evidence of free air, significant intra-abdominal free fluid, bowel obstru ction or abscess. There is mild diverticulosis coli of the sigmoid colon without diverticulitis. APPENDIX: Normal appendix. LYMPH NODES: No lymphadenopathy. MUSCULOSKELETAL: No acute or suspicious osseous abnormality. ADDITIONAL FINDINGS: Small fat-containing umbilical hernia. IMPRESSION: No acute or concerning abnormalities seen in the abdomen or pelvis. Fatty liver. Cholelithiasis.
[2024-07-17 04:36] LABS: Absolute Basophils 0.2 K/uL (0-0.5); Absolute Eosinophils 23.2 K/uL (0-0.5); Absolute Lymphocytes (CBC) 1.5 K/uL (0.7-4.9); Absolute Monocytes 0.5 K/uL (0.1-1.3); Absolute Neutrophil 12.3 K/uL (1.8-8.0); Basophils % 0.5 % (0-1.3); Eosinophils % 61.4 % (0-4.4); Hematocrit 35.3 % (39.6-49.0); Hemoglobin 11.4 g/dL (13.6-17.9); Lymphocytes % 4.1 % (15.3-44.8); MCHC 32.2 g/dL (32.0-36.0); MCV 93.2 fL (80-100); MPV 8.7 fL (7.6-11.3); Monocytes % 1.4 % (3.3-12.3); Neutrophils % 32.6 % (41.7-73.7); Nucleated Red Blood Cells % 0.1 % (0-0); Platelets 640 thou/uL (152-406); RBC Red Blood Cell Count 3.79 M/uL (4.33-5.43); Red Cell Distribution Width 14.9 % (12.1-15.2)
[2024-07-17 05:09] LABS: Anion Gap 8.3 mEq/L (5.0-15.0); C-Reactive Protein 5.47 mg/L (<3.00); Magnesium 2.5 mg/dL (1.6-2.4); Potassium 4.3 mEq/L (3.5-5.1)
--- NOTE | 2024-07-17 21:17 | P.PN ---
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 Recently Diagnosed with Flu ~5 days prior to admission Repeat flu screen is negative. COVID-19 test is negative Patient with severe leukocytosis. 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 s/p tamiflu (07/09-07/12) Dr. Nichols, pulm is following consulted heme/onc Chest physiotherapy. duonebs Monitor CBC CT abdomen ordered to further eval, r/o lymphadenopathy discussed with pulm and heme/onc dc home in next 24hrs, ~2 week steroid course and f/u for further eval/workup Acute right lower extremity DVT, provoked seems to be provoked - reports 1-2 yrs of RLE pain, and a few days not ambulating much on admission, presents with Right leg pain/swelling for ~4 days. venous u/s (07/08): Positive DVT. Thrombus proximal femoral vein to the po pliteal vein Lovenox transitioned to eliquis Continue Eliquis VTE: Eliquis Code: Full Dispo: Home, ~1 day Pending improvement eliquis script sent, need to confirm patient can afford it/covered by insurance Time Spent Managing Pts Care (In Minutes): 55
[2024-07-18 04:49] LABS: Absolute Basophils 0.2 K/uL (0-0.5); Absolute Eosinophils 25.6 K/uL (0-0.5); Absolute Lymphocytes (CBC) 1.4 K/uL (0.7-4.9); Absolute Monocytes 0.5 K/uL (0.1-1.3); Absolute Neutrophil 11.6 K/uL (1.8-8.0); Basophils % 0.5 % (0-1.3); Eosinophils % 65.2 % (0-4.4); Hematocrit 36.4 % (39.6-49.0); Hemoglobin 12.1 g/dL (13.6-17.9); Lymphocytes % 3.6 % (15.3-44.8); MCH 30.8 pg (27.0-35.0); MCHC 33.2 g/dL (32.0-36.0); MCV 92.9 fL (80-100); MPV 8.5 fL (7.6-11.3); Monocytes % 1.3 % (3.3-12.3); Neutrophils % 29.4 % (41.7-73.7); Platelets 653 thou/uL (152-406); RBC Red Blood Cell Count 3.92 M/uL (4.33-5.43); Red Cell Distribution Width 14.4 % (12.1-15.2)
--- NOTE | 2024-07-18 09:01 | P.DS ---
Admission Date: 07/09/24 Discharge Date: 07/18/24 Disposition: ROUTINE DISCHARGE Discharge Condition: GOOD Reason for Admission: DVT , hypoxemia and eosinophilia Consultations: Pulmonology - Dr. Nichols Brief History of Present Illness: 34-year-old male presents to the ER with complaints of right leg pain and swelling. Symptoms started 4 days ago. He was diagnosed with influenza 5 days ago. States he recently was prescribed Tamiflu. Reports feeling weak. Having productive cough with white and russo sputum. Denies fevers or chills. In the ER he was diagnosed with a right lower extremity DVT. Noted to have an elevated white blood cell. Imaging suggestive of possible pneumonia. 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 Patient reports he was recently diagnosed with the flu ~5 days prior to this admission and taking tamiflu + albuterol for ~2 days. Repeat flu screen was negative. COVID-19 test was negative. CTA chest, CXR with findings concerning for pneumonia. 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 (Eosinophils: 49.8 on 07/08). Given his worsening eosinophilia, he was started on IV solumedrol by pulmonology. He had quite a sensitive reaction to the steroids and leukocytosis jumped to 39 from 28k. peaking at 43k (07/16). On day of discharge: WBC: 39k,eosinophils: 65%, absolute: 25.6) 07/15 IV solu-medrol was deescalated to PO prednisone, antibiotics were dc'd and patient continued to improve. Patient also completed ~5 day course of tamiflu a nd received ~5 days of IV levaquin this hospitalization. His eosinophilia may have worsened from the levaquin he received as well. CT abdomen 07/16 with findings as noted below. Discussed with pulm, hematology/oncology, given that his mild mediastinal lymphadenopathy is not amenable to biopsy and patient's continued clinical improvement, recommended 2-3 week course of oral steroids with close follow up in next 1-2 weeks for further outpatient evaluation/work up. Expected for his eosinophila to gradually improve over the next 1-2 weeks, with time off levaquin and taking prednisone Patient was feeling better, breathing more comfortably on room air, afebrile > 48 hours, and was deemed stable for discharge. Each day, had improvement in distance he was walking prior to getting short of breath or leg pain. Follow up with Pulmonology (Dr. Nichols) and Hematology/Oncology (Dr. Finney) in next 1-2 weeks for further management. Please call to schedule and confirm appointments. Leukocytosis on day of discharge: 39.3. Advised repeat CBC within 1 week for continued monitoring. On admission he also reported right leg pain and swelling for ~4 days. Patient was found to have an acute right lower extremity DVT seen on ultrasound. On further discussion, seems to have been provoked - he reports 1-2 years or right leg pain and states he hasn't been able to ambulate very much the last few days. Patient was started on eliquis 07/09, to be continued on discharge. Discussed importance as to not miss any doses. Follow up with PCP for further management. Will likely need to be on eliquis for ~6 months, but to further discuss and follow up with heme/onc. Medications: Prednisone 20 mg twice daily for 2 weeks then 20 mg daily for 1 week Eliquis 5 mg twice daily continue other home medications as previously prescribed. Follow up: PCP 3-5 days Pulmonology (Dr. Nichols) 1-2 weeks Hematology/Oncology (Dr. Finney) 1-2 weeks - need referral from PCP Please call to schedule / confirm appointments recommend repeating CBC with differential in ~5 days return precautions given. Physical Exam: GEN: Alert, NAD CV: Regular rate and rhythm, trace to trace to 1+ RLE Pulm: Nonlabored respirations on room air, +cough ABD: soft, nontender, nondistended Neuro: Normal speech, normal affect Vital Signs/Physical Exam: Temp Pulse Resp BP Pulse Ox 98.3 F 59 18 123/79 93 07/18/24 03:52 07/18/24 03:52 07/18/24 03:52 07/18/24 03:52 07/18/24 03:52 Laboratory Data at Discharge: WBC 39.30 thou/uL (4.3-10.9) H 07/18/24 04:11 Hgb 12.1 g/dL (13.6-17.9) L 07/18/24 04:11 Hct 36.4 % (39.6-49.0) L 07/18/24 04:11 Plt Count 653 thou/uL (152-406) H 07/18/24 04:11 Sodium 136 mEq/L (136-145) 07/17/24 04:09 Potassium 4.3 mEq/L (3.5-5.1) 07/17/24 04:09 BUN 21 mg/dL (7-18) H 07/17/24 04:09 Creatinine 0.81 mg/dL (0.70-1.30) 07/17/24 04:09 Glucose 158 mg/dL (74-106) H 07/17/24 04:09 Magnesium 2.5 mg/dL (1.6-2.4) H 07/17/24 04:09 Total Bilirubin 0.3 mg/dL (0.2-1.0) 07/16/24 04:08 AST 40 U/L (15-37) H 07/16/24 04:08 ALT 60 U/L (16-61) 07/16/24 04:08 Alkaline Phosphatase 49 U/L (45-117) 07/16/24 04:08 Home Medications: Apixaban [Eliquis] 5 mg PO BID 30 Days #60 tab 07/17/24 predniSONE [Prednisone*] 20 mg PO SEECOM 21 Days #35 tab 07/18/24 New Medications: Apixaban [Eliquis] 5 mg PO BID 30 Days #60 tab predniSONE [Prednisone*] 20 mg PO SEECOM 21 Days #35 tab Physician Discharge Instructions: Physician discharge instructions: Patient presented with generalized weakness, fatigue, productive cough secondary to pneumonia further exacerbated by recent flu. Patient reports he was recently diagnosed with the flu ~5 days prior to this admission and taking tamiflu + albuterol for ~2 days. Repeat flu screen was negative. COVID-19 test was negative. CTA chest, CXR with findings concerning for pneumonia. 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 (Eosinophils: 49.8 on 07/08). Given his worsening eosinophilia, he was started on IV solumedrol by pulmonology. He had quite a sensitive reaction to the steroids and leukocytosis jumped to 39 from 28k. peaking at 43k (07/16). On day of discharge: WBC: 39k,eosinophils: 65%, absolute: 25.6) 07/15 IV solu-medrol was deescalated to PO prednisone, antibiotics were dc'd and patient continued to improve. Patient also completed ~5 day course of tamiflu and received ~5 days of IV levaquin this hospitalization. His eosinophilia may have worsened from the levaquin he received as well. CT abdomen 07/16 with findings as noted below. Discussed with pulm, hematology/oncology, given that his mild mediastinal lymphadenopathy is not amenable to biopsy and patient's continued clinical improvement, recommended 2-3 week course of oral steroids with close follow up in next 1-2 weeks for further outpatient evaluation/work up. Expected for his eosinophila to gradually improve over the next 1-2 weeks, with time off levaquin and taking prednisone Patient was feeling better, breathing more comfortably on room air, afebrile > 48 hours, and was deemed stable for discharge. Each day, had improvement in distance he was walking prior to getting short of breath or leg pain. Follow up with Pulmonology (Dr. Nichols) and Hematology/Oncology (Dr. Finney) in next 1-2 weeks for further management. Please call to schedule and confirm appointments. Leukocytosis on day of discharge: 39.3. Advised repeat CBC within 1 week for continued monitoring. On admission he also reported right leg pain and swelling for ~4 days. Patient was found to have an acute right lower extremity DVT seen on ultrasound. On further discussion, seems to have been provoked - he reports 1-2 years or right leg pain and states he hasn't been able to ambulate very much the last few days. Patient was started on eliquis 07/09, to be continued on discharge. Discussed importance as to not miss any doses. Follow up with PCP for further management. Will likely need to be on eliquis for ~6 months, but to further discuss and follow up with heme/onc. Medications: Prednisone 20 mg twice daily for 2 weeks then 20 mg daily for 1 week Eliquis 5 mg twice daily continue other home medications as previously prescribed. Follow up: PCP 3-5 days Pulmonology (Dr. Nichols) 1-2 weeks Hematology/Oncology (Dr. Finney) 1-2 weeks - need referral from PCP Please call to schedule / confirm appointments recommend repeating CBC with differential in ~5 days return precautions given. Imaging reports: CTA chest (07/08): 1. Limited exam. No evidence of pulmonary embolism within the main arteries. 2. Pulmonary opacities throughout all lobes favored to represent atypical infection or small amount of consolidative opacities in the right middle lobe may represent early or mild bronchopneumonia. 3. Multiple enlarged mediastinal lymph nodes which are probably reactive. CT abdomen (07/16): Fatty liver. Cholelithiasis. Small fat containing umbilical hernia. No lymphadenopathy. No other acute findings. Venous Ultrasound (07/08): Thrombus is present proximal femoral vein to the popliteal vein Followup: Choco Nichols MD [ACTIVE - CAN ADMIT] - 1-2 Weeks Iman Finney MD [ACTIVE - CAN ADMIT] - 1-2 Weeks OOT,ElisabethOT [Primary Care Provider] - Time spent managing pt's care (in minutes): 45
[2024-07-18 12:55] VITALS: BP 133/77; TEMP 97.6
[2024-07-19 03:00] LABS: P-ANCA Anti-Myeloperoxidase Ab <1.0 AI (<1.0)
[2024-07-21 22:28] LABS: Immunoglobulin E 633 kU/L (<=114)
== END 2024-07-18 12:38 | disposition home or self-care (01) | DRG 871 ==
LOC: ER 17:31 → ERHOLD 07-09 02:29 → 2ND 07-09 19:18
PROVIDERS: ADMIT Internal Medicine; ATTEND Hospitalist
DX: A41.89 Other specified sepsis (principal); J10.00 Influenza due to other identified influenza virus with unspecified type of pneumonia; I82.431 Acute embolism and thrombosis of right popliteal vein; E66.01 Morbid (severe) obesity due to excess calories; Z68.39 Body mass index [BMI] 39.0-39.9, adult
CPT/HCPCS: 36415; 71045; 71275; 74177; 80048; 80053; 80076; 81001; 82785; 83605; 83735; 83880; 84145; 84484; 85025; 86021; 86140; 87040; 87070; 87205; 87804; 87811; 93005; 93971; 94010; 94640; 96372; 99285; J0696; J1650; J2270; J2919; J7040; J7050; J7512; J7613; J7626; J7644; Q9967